=== PATIENT | female | born 1930 | race Caucasian/White ===

== ENCOUNTER → 2016-10-06 | Outpatient (REF) | payer MEDICARE, MEDICAID ==
[~2016-10-06] MED LIST: /ALEN70TA; /AMLO25TA PO; /MOM400 PO; /WARF25TA; /WARF25TA PO; ACET50TA PO; ALB2.5NEB INH; ALBU17IN INH; ALLO10TA PO; AMLO5TAB2 PO; ASPI1TAB PO; ATOR1TAB21 PO; BONI150T PO; CALC600T7 PO; CALCIUM + VIT D; CATA0.1T PO; CENTRUM SILVER; CENTTAB PO; CHLO125TA PO; CLAR10CA3 PO; CLAR5CHW; CLON-412 PO; COLA100C PO; COLA100C2; COLA50CA3 PO; COLC0.6T; COLCPOW6 PO; COZA100T2 PO; DEPA250T3; DEPA250T32 PO; DULC5TAB PO; FLOV110A INH; FLUT11IN INH; FLUTISP; FOLI1TAB; FOLI1TAB2 PO; FOLI1TAB86 PO; FOSA70TA PO; FURO40TA2 PO; GABA-279 PO; HYDR1TAB97 PO; HYDR200T2 PO; HYDR200T3 PO; HYDROXYCHLOROQUINE; IPRA2IN INH; KLOR CON PO; KLOR1TAB69 PO; LASI40TA PO; LEVO75TA2; LEVO75TA3 PO; LEVO75TA4 PO; LIPI20TA; LIPI20TA PO; LISI20TA5; LISI5TAB PO; LORA10TA2 PO; MECL-68 PO; METH2.5T; METH2.5T PO; METH2.5TA PO; MICR10CA PO; MILKSUS; MONT10TA2 PO; MULTIVIT; MULTTAB4 PO; MYLASSUD PO; NYAM10003 TOP; NYST10PW TOP; NYSTPOW TOP; OMEP20CA3 PO; OMEP20TA7; PERC5TAB6 PO; POTA10CA PO; PROAAER INH; RHEU2.5T PO; SERT-138 PO; SERT100T; SING5CHW PO; TRAM50TA2; TYLE325T5 PO; ULTR50TA PO; VITAD1000T PO; VITAMIN D50000 UNT; VOLT1GEL24 TD; WARF-18 PO; ZOLO100T PO
[2016-10-06 12:16] LABS: INR 1.13
[2016-10-06 13:19] LABS: ALBUMIN 3.6 GM/DL (3.2-5.2); ALBUMIN/GLOBULIN RATIO 1.16 (1.00-1.93); BILIRUBIN,TOTAL 0.3 MG/DL (0.2-1.0); CALCIUM LEVEL 9.5 MG/DL (8.8-10.2); CREATININE FOR GFR 1.01 MG/DL (0.55-1.02); GLOMERULAR FILTRATION RATE 55.5 (>32); POTASSIUM SERUM 4.8 MEQ/L (3.5-5.1); TOTAL PROTEIN 6.7 GM/DL (6.4-8.2)
== END ==
LOC: M SFHCPLAZ 10:49
PROVIDERS: ATTEND Internal Medicine
DX: Z51.81 Encounter for therapeutic drug level monitoring (principal); E78.00 Pure hypercholesterolemia, unspecified; Z86.718 Personal history of other venous thrombosis and embolism; I48.2 Chronic atrial fibrillation

== ENCOUNTER → 2017-03-02 | Outpatient (REF) | payer MEDICARE, MEDICAID ==
[~2017-03-02] MED LIST changes: -COLA100C PO; +COLA100C3 PO; +HYDR-3713 PO; -HYDR1TAB97 PO
[2017-03-02 18:22] LABS: ALBUMIN 3.7 GM/DL (3.2-5.2); ALT/SGPT 20 U/L (12-78); AST/SGOT 23 U/L (15-37); GLOMERULAR FILTRATION RATE 50.1 (>32)
[2017-03-02 19:23] LABS: BASO % 0.4 % (0.0-1.0); EOS # 0.1 K/mm3 (0.0-0.50); EOS % 2.2 % (0.0-3.0); LYMPH # 1.2 K/mm3 (1.5-4.5); LYMPH % 23.4 % (24.0-44.0); MEAN CORPUSCULAR HGB CONC 31.6 g/dl (32.0-36.5); MEAN CORPUSCULAR VOLUME 94.9 fl (80.0-96.0); MONO # 0.2 K/mm3 (0.0-0.8); NEUTROPHILS # 3.7 K/mm3 (1.8-7.7); NEUTROPHILS % 68.9 % (36.0-66.0); RED CELL DISTRIBUTION WIDTH 16.2 % (11.5-14.5); WHITE BLOOD COUNT 5.3 K/mm3 (4.0-10.0)
== END ==
LOC: M LABDRAW1 17:08
PROVIDERS: ATTEND Physician Assistant
DX: M06.09 Rheumatoid arthritis without rheumatoid factor, multiple sites (principal); Z79.899 Other long term (current) drug therapy

== ENCOUNTER → 2017-03-18 | Outpatient (REF) | payer OTHER, MEDICAID ==
[2017-03-18 17:51] LABS: MEAN CORPUSCULAR HEMOGLOBIN 30.4 pg (27.0-33.0); MEAN CORPUSCULAR HGB CONC 31.8 g/dl (32.0-36.5); MEAN CORPUSCULAR VOLUME 95.3 fl (80.0-96.0); RED CELL DISTRIBUTION WIDTH 16.3 % (11.5-14.5); WHITE BLOOD COUNT 5.4 K/mm3 (4.0-10.0)
[2017-03-18 18:47] LABS: ALBUMIN 3.9 GM/DL (3.2-5.2); ALBUMIN/GLOBULIN RATIO 1.18 (1.00-1.93); BILIRUBIN,TOTAL 0.4 MG/DL (0.2-1.0); CALCIUM LEVEL 9.7 MG/DL (8.8-10.2); CREATININE FOR GFR 1.24 MG/DL (0.55-1.02); GLOMERULAR FILTRATION RATE 43.7 (>32); MAGNESIUM LEVEL 2.2 MG/DL (1.8-2.4); POTASSIUM SERUM 4.5 MEQ/L (3.5-5.1); TOTAL PROTEIN 7.2 GM/DL (6.4-8.2)
== END ==
LOC: M SFHCPLAZ 13:02
PROVIDERS: ATTEND Internal Medicine
DX: Z79.01 Long term (current) use of anticoagulants (principal); I10 Essential (primary) hypertension; E03.9 Hypothyroidism, unspecified

== ENCOUNTER 2017-06-08 16:42 | Observation (INO) | payer MEDICARE, MEDICAID ==
[~2017-06-08] VITALS: Ht 162.6 cm; Wt 90.2 kg
[~2017-06-08 16:42] MED LIST changes: -COLA100C3 PO; +COLA100C5 PO; -FOLI1TAB2 PO; +FOLI1TAB4 PO; +PERC5TAB12 PO; -PERC5TAB6 PO; +VOLT1GEL15 TD; -VOLT1GEL24 TD
[2017-06-08] MEDS ORDERED: ELIQ5TAB PO (17:31)
[2017-06-08] MEDS: NS 1,000 ML IV SCH (17:54)
[2017-06-08] MEDS ORDERED: GASTROGRAFIN SOLUTION 30ML PO ONE (18:15)
[2017-06-08 18:22] LABS: BASO % 0.5 % (0.0-1.0); EOS # 0.2 K/mm3 (0.0-0.50); EOS % 3.8 % (0.0-3.0); LARGE UNSTAINED CELL # 0.1 K/mm3 (0.0-0.4); LARGE UNSTAINED CELL % 1.5 % (0.0-4.0); LYMPH # 0.9 K/mm3 (1.5-4.5); LYMPH % 20.4 % (24.0-44.0); MEAN CORPUSCULAR HEMOGLOBIN 31.6 pg (27.0-33.0); MEAN CORPUSCULAR HGB CONC 33.1 g/dl (32.0-36.5); MEAN CORPUSCULAR VOLUME 95.2 fl (80.0-96.0); MONO # 0.2 K/mm3 (0.0-0.8); MONO % 4.3 % (0.0-5.0); NEUTROPHILS # 3.1 K/mm3 (1.8-7.7); NEUTROPHILS % 69.5 % (36.0-66.0); PLATELET COUNT, AUTOMATED 203 k/mm3 (150-450); RED CELL DISTRIBUTION WIDTH 15.7 % (11.5-14.5); WHITE BLOOD COUNT 4.5 K/mm3 (4.0-10.0)
[2017-06-08 18:28] LABS: INR 1.13
[2017-06-08 18:40] LABS: CALCIUM LEVEL 9.4 MG/DL (8.8-10.2); CREATININE FOR GFR 0.98 MG/DL (0.55-1.02); GLOMERULAR FILTRATION RATE 57.3 (>32); POTASSIUM SERUM 4.2 MEQ/L (3.5-5.1)
[2017-06-08] MEDS ORDERED: GASTROGRAFIN SOLUTION 30ML (Q9963) PO ONE (18:45)
[2017-06-08] MEDS ORDERED: ISOVUE-370 76% 100ML VIAL (Q9967) As Ordered ONE (19:39)
--- NOTE | 2017-06-08 20:50 | REPUSA ---
HISTORY: DIVERTICULITIS. TECHNIQUE: Axial CT imaging of the abdomen and pelvis with coronal and sagittal reformatted imaging, with oral and intravenous contrast enhancement. DLP= 940.8 mGy-cm. FINDINGS: Lung bases are clear. There is a huge hiatal hernia with most of the stomach herniated i nto the lower thorax. Coronary artery calcifications are seen in the LAD, circumflex, and RCA arteri es. Bone windows demonstrate diffuse degenerative changes in the lumbosacral spine with no bony frac ture or destructive bony lesions seen. Liver is of normal size with no pathologic mass seen. Spleen is borderline enlarged. No ascites or abnormal peritoneal fluid collection is seen. Patient is status post cholecystectomy. There is dilatation of the common bile duct which is most li ada physiological. There is pancreatic atrophy with no pancreatic mass or calcification seen. Bila teral adrenal glands are normal. Both kidneys function without evidence of obstruction. There are multiple benign cysts identified in the right kidney, the largest measuring 2.6 cm. , Ureters and urinary bladder are normal. Abdomin al aorta and IVC are normal and no retroperitoneal mass is seen. No pelvic mass lesions or abnormal peritoneal fluid collections are seen. No abdominal wall hernia s een. The bowel appears normal with no evidence of bowel wall mass lesion, obstruction, perforation, inflammatory reaction, or evidence of diverticulitis. Appendix is not visualized. IMPRESSION: 1. Huge hiatal hernia with large herniation of stomach into the lower thorax. The remai nder of the bowel is normal with no evidence of diverticulitis, bowel obstruction, or perforation. 2. Coronary artery calcifications noted in the LAD, circumflex, and RCA arteries. 3. Multiple benign cysts in the right kidney with no evidence of urinary tract calculus, obstruction , or solid mass lesions seen. 4. Borderline splenomegaly. 5. The remainder of the CT examination of the abdomen and pelvis is normal.
[2017-06-08 21:31] LABS: ALBUMIN 3.7 GM/DL (3.2-5.2); ALBUMIN/GLOBULIN RATIO 0.95 (1.00-1.93); BILIRUBIN,DIRECT 0.1 MG/DL (0.0-0.2); BILIRUBIN,TOTAL 0.3 MG/DL (0.2-1.0); TOTAL PROTEIN 7.6 GM/DL (6.4-8.2)
[2017-06-08] MEDS ORDERED: fentaNYL 100 MCG/2 ML INJECTION (J3010) IV ONE (22:30)
[2017-06-08] MEDS ORDERED: ASPI81CH PO (22:36)
[2017-06-08] MEDS ORDERED: GABA-282 PO (22:36)
[2017-06-08] MEDS ORDERED: TRAN1.5D2 TOP (22:57)
[2017-06-09] VITALS (13 sets, daily range): BP systolic 124–214; BP diastolic 60–93
[2017-06-09] MEDS ORDERED: MECLIZINE 25 MG TABLET PO PRN (01:30)
[2017-06-09] MEDS ORDERED: traMADol 50 MG TAB PO PRN (01:30)
[2017-06-09] MEDS ORDERED: ONDANSETRON 4MG/2ML VIAL (J2405) IV PRN (01:30)
[2017-06-09] MEDS ORDERED: ALBUTEROL 90 MCG/ACT 8GM HFA INHALER INH PRN (01:30)
[2017-06-09] MEDS ORDERED: SCOPOLAMINE 1.5 MG TRANSDERMAL TOP PRN (01:30)
[2017-06-09] MEDS ORDERED: NYSTATIN 100,000 UNITS/GM TOPICAL PWD 15 GM TOP PRN (01:30)
[2017-06-09] MEDS ORDERED: ACETAMINOPHEN TAB 650MG DOSE (2X325MG) PO PRN (01:30)
[2017-06-09] MEDS ORDERED: FLUTICASONE HFA 110 MCG 12 GM INHALER (FLOVENT) INH PRN (01:30)
[2017-06-09] MEDS ORDERED: traMADol 50 MG TAB PO ONE (01:45)
--- NOTE | 2017-06-09 02:01 | HPEPDOC ---
Medical History and Physical Date of Admission Jun 08, 2017 at 16:43 History and Physical PRIMARY CARE PROVIDER: Dr. Charli Steiner ATTENDING: Dr. Trang Mcgowan CHIEF COMPLAINT: Abd pain, black stools. HISTORY OF PRESENT ILLNESS: This 87-year-old female past medical history of CVA 4, chronic atrial fibrillation on [place], SARA compliant with CPAP at home, hypertension, rheumatoid arthritis, osteoporosis, GERD, asthma, hemorrhoids, diverticulosis and diverticulitis who presents complaining of left lower quadrant pain as well as melanotic stools. Patient states the melanotic stools has been present over the past 2 and half months. Patient states that her stools were initially bright red before becoming melanotic. Patient also reports left lower quadrant pain which occasionally improves with bowel movements, and with pain medications. Patient had an abdominal CAT scan in the ED which did not note any significant pathology attributing to her pain. Upon further questioning, the patient's pain appears to be radiating from her spine. Patient also has left hip pain with radiation to the inguinal region. Patient denies any recent falls. PAST MEDICAL HISTORY: As per HPI PAST SURGICAL HISTORY: Cholecystectomy, breast biopsy, hiatal hernia repair, appendectomy, tonsillectomy, bilateral cataract, hysterectomy, right knee replacement, tonsillectomy SOCIAL HISTORY: Denies tobacco, alcohol, illicit drug use. Lives alone. Walks with walker. FAMILY HISTORY: Noncontributory ALLERGIES: Please see below. REVIEW OF SYSTEMS: HEENT: Denies sore throat/headache CARDIOVASCULAR: Denies chest pain/palpitations RESPIRATORY: Denies shortness of breath/cough GASTROINTESTINAL: denies nausea/vomiting GENITOURINARY: Denies dysuria/urinary urgency. MUSCULOSKELETAL: Denies myalgias/arthralgias NEUROLOGICAL: Baseline right-sided hemiparesis status post CVA. HOME MEDICATIONS: Please see below. PHYSICAL EXAMINATION: Vitals: (see below) General: No acute distress, laying comfortably in bed. HEENT: Moist mucous membranes. Neck: No JVD or lymphadenopathy Cardiac: RRR, systolic murmur Pulm: Diminished breath sounds at the bases bilaterally. B/l. No wheezing, rhonchi Abd: ND + BS. Left lower > upper quadrant tenderness to palpation. No rebound guarding or rigidity. Patient appears to also have pain at the lumbar region of her spine on palpation. Ext: No edema or cyanosis. Distal pulses intact. Pain of left hip with internal rotation. Neuro: Strength 5/5 left upper and lower extremity. 3-4 out of 5 strength of the right upper and lower extremity; this is the patient's baseline. LABORATORY DATA: See below. IMAGING: CT abdomen and pelvis on 06/08/17 IMPRESSION: 1. Huge hiatal hernia with large herniation of stomach into the lower thorax. The remainder of the bowel is normal with no evidence of diverticulitis, bowel obstruction, or perforation. 2. Coronary artery calcifications noted in the LAD, circumflex, and RCA arteries. 3. Multiple benign cysts in the right kidney with no evidence of urinary tract calculus, obstruction, or solid mass lesions seen. 4. Borderline splenomegaly. 5. The remainder of the CT examination of the abdomen and pelvis is normal. MICROBIOLOGY: Please see below. ASSESSMENT/PLAN: 1. Left lower quadrant pain likely radiation from the spine, as well as constipation. We will obtain CT of the thoracic and lumbar spine. Patient does have a history of osteoporosis/rheumatoid arthritis. Tramadol for pain. Bowel regimen. Physical therapy. 2. Melanotic stools- patient states this is been going on for the past 2 and half months, and just recently told her primary care physician about it. Her hemoglobin is stable. She is on Eliquis for atrial fibrillation. Given that there is no drop in the hemoglobin, we will continue Eliquis and hold aspirin for now. Trend CBC. Question of EGD inpatient versus outpatient based on clinical course. 3. History of CVA 4 with residual right-sided hemiparesis. Walks with a walker. 4. Atrial fibrillation on Eliquis 5. History of rheumatoid arthritis on methotrexate and hydroxychloroquine 6. Osteoporosis- we'll need outpatient follow-up 7. SARA states she uses her CPAP at home. 8. History of hemorrhoids and diverticulosis. Last colonoscopy 2002. DVT prophylaxis- on Eliquis Patient will be followed by Dr. Trang Mcgowan starting 06/09/17 a 7 AM. Vital Signs Vital Signs Date Time Temp Pulse Resp B/P (MAP) Pulse Ox O2 Delivery O2 Flow Rate FiO2 06/09/17 00:42 58 93 06/08/17 23:53 165/71 (102) 06/08/17 22:41 18 06/08/17 16:43 98.1 Room Air Laboratory Data Labs 24H Laboratory Tests 2 06/08/17 18:06: White Blood Count 4.5, Red Blood Count 3.70L, Hemoglobin 11.7L, Hematocrit 35.3L , Mean Corpuscular Volume 95.2, Mean Corpuscular Hemoglobin 31.6, Mean Corpuscular Hemoglobin Concent 33.1, Red Cell Distribution Width 15.7H, Platelet Count 203, Neutrophils (%) (Auto) 69.5H, Lymphocytes (%) (Auto) 20.4L, Monocytes (%) (Auto) 4.3, Eosinophils (%) (Auto) 3.8H, Basophils (%) (Auto) 0.5 , Neutrophils # (Auto) 3.1, Lymphocytes # (Auto) 0.9L, Monocytes # (Auto) 0.2, Eosinophils # (Auto) 0.2, Basophils # (Auto) 0.0, Large Unclassified Cells % 1.5 , Large Unclassified Cells # 0.1, Prothrombin Time 14.7H, Prothromb Time International Ratio 1.13, Activated Partial Thromboplast Time 38.4H, Anion Gap 9 , Glomerular Filtration Rate 57.3, Lactic Acid Level 1.4, Blood Urea Nitrogen 28H, Creatinine 0.98, Sodium Level 143, Potassium Level 4.2, Chloride Level 110H , Carbon Dioxide Level 24, Calcium Level 9.4, Aspartate Amino Transf (AST/SGOT) 21, Alanine Aminotransferase (ALT/SGPT) 23, Alkaline Phosphatase 95, Total Bilirubin 0.3, Direct Bilirubin 0.1, Total Protein 7.6, Albumin 3.7, Albumin/ Globulin Ratio 0.95L CBC/BMP Laboratory Tests 06/08/17 18:06 Red Blood Count 3.70 L, Mean Corpuscular Volume 95.2, Mean Corpuscular Hemoglobin 31.6, Mean Corpuscular Hemoglobin Concent 33.1, Red Cell Distribution Width 15.7 H, Neutrophils (%) (Auto) 69.5 H, Lymphocytes (%) (Auto ) 20.4 L, Monocytes (%) (Auto) 4.3, Eosinophils (%) (Auto) 3.8 H, Basophils (%) (Auto) 0.5, Neutrophils # (Auto) 3.1, Lymphocytes # (Auto) 0.9 L, Monocytes # ( Auto) 0.2, Eosinophils # (Auto) 0.2, Basophils # (Auto) 0.0, Calcium Level 9.4 Home Medications Scheduled (Aspirin) 81 Mg Chw, 81 MG PO DAILY Allopurinol (Allopurinol) 100 Mg Tab, 100 MG PO DAILY Amlodipine Besylate (Amlodipine Besylate) 5 Mg Tab, 10 MG PO DAILY Apixaban Base (Eliquis) 5 Mg Tab, 5 MG PO BID Atorvastatin Calcium (Atorvastatin Calcium) 20 Mg Tab, 20 MG PO DAILY Docusate Sodium (Colace) 100 Mg Cap, 100 MG PO BID Folic Acid (Folic Acid) 1 Mg Tab, 1 MG PO DAILY Furosemide (Furosemide) 40 Mg Tab, 20 MG PO DAILY Gabapentin (Gabapentin) 300 Mg Cap, 300 MG PO BID Hydroxychloroquine Sulfate (Hydroxychloroquine Sulfat) 200 Mg Tab, 200 MG PO ASDIRECTED TAKES TUESDAY THROUGH TUESDAY Ibandronate Sodium (Boniva) 150 Mg Tab, 150 MG PO ASDIRECTED TAKES ONCE A MONTH ON THE OF THE MONTH. HAS NOT TAKEN IT FOR . Levothyroxine Sodium (Synthroid) 75 Mcg Tab, 75 MCG PO DAILY Loratadine (Loratadine) 10 Mg Tab, 10 MG PO DAILY Losartan Potassium (Cozaar) 100 Mg Tab, 100 MG PO DAILY Methotrexate (Methotrexate) 2.5 Mg Tab, 12.5 MG PO ASDIRECTED TAKES ON TUESDAY MORNINGS Montelukast Sodium (Montelukast Sodium) 10 Mg Tab, 10 MG PO QHS Omeprazole (Omeprazole) 20 Mg Cap, 20 MG PO DAILY Potassium Chloride (Klor-Con M10) 10 Meq Tabcr, 10 MEQ PO BID Sertraline HCl (Sertraline HCl) 100 Mg Tab, 100 MG PO QHS Scheduled PRN Albuterol Sulfate (Ventolin Hfa) 200 Puff/8 Gm Aers, 2 PUFF INH Q4H PRN for SHORTNESS OF BREATH Fluticasone Propionate (Flovent Hfa 110 MCG) 120 Puff/12 Gm Aero, 2 PUFF INH BID PRN for SHORTNESS OF BREATH Meclizine HCl (Meclizine HCl) 25 Mg Tab, 25 MG PO TID PRN for DIZZINESS Nystatin (Nystop Powder) 1 Dose/15 Gm Powd, 1 DOSE TOP BID PRN for RASH USES UNDER BREASTS NEEDED Scopolamine (Transderm-Scop) 1.5 Mg Dis, 1.5 MG TOP Q72H PRN for DIZZINESS Allergies Coded Allergies: Codeine (Verified Allergy, Intermediate, HIVES, 10/11/13) Penicillins (Verified Allergy, Intermediate, HIVES, 10/11/13) Sulfa Drugs (Verified Allergy, Intermediate, HIVES, 10/11/13) Hexachlorophene (Verified Allergy, Unknown, 01/01/13) Morphine (Verified Adverse Reaction, Intermediate, HALLUCINATIONS, 10/11/13) MIGDALIA MÉNDEZ MD Jun 09, 2017 02:01
[2017-06-09 02:20] LABS: MEAN CORPUSCULAR HEMOGLOBIN 30.6 pg (27.0-33.0); MEAN CORPUSCULAR HGB CONC 31.9 g/dl (32.0-36.5); RED CELL DISTRIBUTION WIDTH 16.2 % (11.5-14.5); WHITE BLOOD COUNT 4.9 K/mm3 (4.0-10.0)
--- NOTE | 2017-06-09 02:20 | REPUSA ---
CLINICAL HISTORY: Back pain. TECHNIQUE: Multiple axial images were obtained through the L1-L2, L2-L3, L3-L4, L4-L5 and L5-S1 inter spaces. Images were also reconstructed in coronal and sagittal planes. COMMENTS: There is no fracture visualized. The paraspinal soft tissues are unremarkable. There are no lytic or blastic lesions. Straightening of lumbar lordosis is seen, suggesting muscular spasm. There is evidence of multilevel disk disease, demonstrated by osteophytosis ad endplate sclerosis. Evaluation of individual levels reveals the following: At L4-L5 and L5-S1, broad-based disk protrusion in conjunction with hypertrophic facet disease result s in moderate bilateral foraminal narrowing.Canal is mildly stenotic. At L3-L4, broad-based disk bulge, results in mild bilateral foraminal narrowing. Canal is patent. L1-L2 and L2-L3, broad-based disk bulge, results in mild bilateral foraminal narrowing. Canal is chris nt. IMPRESSION: Spondylosis. Multilevel degenerative disc disease. Thank you for your kind referral of this patient.
--- NOTE | 2017-06-09 02:30 | REPUSA ---
CLINICAL HISTORY: Pain. TECHNIQUE: Multiple axial CT images were obtained through the thoracic spine without IV contrast mate rial. MPR coronal and sagittal sequences were obtained. COMMENTS: Moderate osteopenia of the visualized bones. Mild chronic compression deformities of the midthoracic vertebral bodies. Associated secondary increase in the dorsal kyphosis. There is no fracture visualized. The paraspinal soft tissues are unremarkable. There are no lytic or blastic lesions. There are diffuse spondylotic changes. Findings are demonstrated by disc space narrowing, osteophyte formation and degenerative endplate changes. Facet joint arthropathy. No fracture or dislocation is s een. No aggressive bone lesion is noted. IMPRESSION: Spondylosis. No acute fracture. Thank you for your kind referral of this patient.
--- NOTE | 2017-06-09 02:30 | REPUSA ---
CLINICAL HISTORY: Pain. TECHNIQUE: Multiple axial CT images were obtained without IV contrast material. MPR coronal and sagit syeda sequences are obtained. COMMENTS: There are moderate changes of degenerative joint disease. Findings are demonstrated by joint space na rrowing, osteophyte formation and subchondral sclerosis. No fracture or dislocation is seen. No lytic or blastic lesion is appreciated. There is no evidence of fracture or dislocation. There are no lytic or blastic lesions. No soft tissu e masses or fluid collections are present. IMPRESSION: Osteopenia. Degenerative joint disease. Thank you for your kind referral of this patient.
[2017-06-09] MEDS ORDERED: amLODIPine 5 MG TAB PO ONE (03:30)
[2017-06-09] MEDS ORDERED: LOSARTAN 50 MG TAB PO ONE (03:30)
[2017-06-09] MEDS: NS 1,000 ML IV SCH (03:57)
[2017-06-09] MEDS: LEVOTHYROXINE 75MCG TABLET (0.075MG) PO SCH (05:03)
[2017-06-09] MEDS: ALLOPURINOL 100 MG TAB PO SCH (08:50)
[2017-06-09] MEDS: LORATADINE 10 MG TAB PO SCH (08:50)
[2017-06-09] MEDS: GABAPENTIN 300 MG CAP PO SCH ×2 (08:50→20:35)
[2017-06-09] MEDS: PANTOPRAZOLE 40MG INJ (PROTONIX) (C9113) IV SCH ×2 (08:50→20:34)
[2017-06-09] MEDS: APIXABAN 5 MG TAB (ELIQUIS) PO SCH ×2 (08:51→20:35)
[2017-06-09] MEDS: ATORVASTATIN 20 MG TAB PO SCH (08:51)
[2017-06-09] MEDS: HYDROXYCHLOROQUINE 200 MG TAB PO SCH (08:51)
[2017-06-09] MEDS: FOLIC ACID 1 MG TAB PO SCH (08:51)
[2017-06-09] MEDS: amLODIPine 5 MG TAB PO SCH (08:51)
[2017-06-09] MEDS: FUROSEMIDE 20 MG TAB PO SCH (08:51)
[2017-06-09] MEDS: POTASSIUM CHLORIDE 10 MEQ SR TABLET PO SCH ×2 (08:51→20:34)
[2017-06-09] MEDS: LOSARTAN 50 MG TAB PO SCH (08:52)
[2017-06-09] MEDS: DOCUSATE SODIUM 100 MG CAP PO SCH ×2 (08:52→20:35)
[2017-06-09] MEDS ORDERED: OMEPRAZOLE 20 MG CAP PO SCH (09:00)
[2017-06-09 13:32] LABS: MEAN CORPUSCULAR HEMOGLOBIN 31.1 pg (27.0-33.0); MEAN CORPUSCULAR HGB CONC 32.1 g/dl (32.0-36.5); RED CELL DISTRIBUTION WIDTH 16.2 % (11.5-14.5); WHITE BLOOD COUNT 5.3 K/mm3 (4.0-10.0)
[2017-06-09] MEDS ORDERED: MONTELUKAST 10 MG TAB PO SCH (21:00)
[2017-06-09] MEDS ORDERED: SERTRALINE 100 MG TAB PO SCH (21:00)
[2017-06-10 06:00] VITALS: BP 127/60
[2017-06-10] MEDS: LEVOTHYROXINE 75MCG TABLET (0.075MG) PO SCH (06:06)
[2017-06-10 06:29] LABS: CALCIUM LEVEL 8.6 MG/DL (8.8-10.2); CREATININE FOR GFR 1.07 MG/DL (0.55-1.02); GLOMERULAR FILTRATION RATE 51.8 (>32); POTASSIUM SERUM 4.9 MEQ/L (3.5-5.1)
[2017-06-10 06:31] LABS: MEAN CORPUSCULAR HEMOGLOBIN 31.5 pg (27.0-33.0); MEAN CORPUSCULAR HGB CONC 32.1 g/dl (32.0-36.5); MEAN CORPUSCULAR VOLUME 98.1 fl (80.0-96.0); RED CELL DISTRIBUTION WIDTH 16.2 % (11.5-14.5)
[2017-06-10 09:00] VITALS: BP 143/65
[2017-06-10] MEDS: FUROSEMIDE 20 MG TAB PO SCH (09:00)
[2017-06-10] MEDS: DOCUSATE SODIUM 100 MG CAP PO SCH (09:00)
[2017-06-10] MEDS: APIXABAN 5 MG TAB (ELIQUIS) PO SCH (09:00)
[2017-06-10] MEDS: amLODIPine 5 MG TAB PO SCH (09:00)
[2017-06-10] MEDS: PANTOPRAZOLE 40MG INJ (PROTONIX) (C9113) IV SCH (09:00)
[2017-06-10] MEDS: POTASSIUM CHLORIDE 10 MEQ SR TABLET PO SCH (09:00)
[2017-06-10] MEDS: HYDROXYCHLOROQUINE 200 MG TAB PO SCH (09:00)
[2017-06-10] MEDS: GABAPENTIN 300 MG CAP PO SCH (09:00)
[2017-06-10] MEDS: ALLOPURINOL 100 MG TAB PO SCH (09:00)
[2017-06-10] MEDS: LOSARTAN 50 MG TAB PO SCH (09:00)
[2017-06-10] MEDS: FOLIC ACID 1 MG TAB PO SCH (09:00)
[2017-06-10] MEDS: LORATADINE 10 MG TAB PO SCH (09:00)
[2017-06-10] MEDS: ATORVASTATIN 20 MG TAB PO SCH (09:00)
[2017-06-10 10:00] VITALS: BP 158/72
--- NOTE | 2017-06-10 17:00 | DSES ---
DATE OF ADMISSION: 06/08/2017 DATE OF DISCHARGE: 06/10/2017 DISCHARGE DIAGNOSIS: Tarry stools. SECONDARY DIAGNOSES: 1. Left quadrant abdominal pain. 2. History of cerebrovascular accident (CVA). 3. Atrial fibrillation. 4. Rheumatoid arthritis. 5. Osteoporosis. 6. Obstructive sleep apnea. 7. Hemorrhoids. 8. Diverticulosis. HOSPITAL COURSE: The patient is an 87-year-old female who presented to the hospital with dark, tarry stools for two days. The patient was admitted to the progressive care unit under medical service. Was monitored very closely. Her hemoglobin and hematocrit (H and H) did not appear to have any significant deviations. They remained stable, and occult stool for blood was negative. She was monitored 24 hours without any significant change in her clinical status. Her left lower quadrant pain resolved. It was felt to be related to diverticulosis. Melanotic stools resolved and she resumed having normal bowel movements. SUBJECTIVE: The patient tells me that she is feeling well and has no complaints and wants to go home. She states she feels back to normal. OBJECTIVE: VITAL SIGNS: Temperature 96.9, pulse 53, respiratory rate 18, blood pressure 127/60, oxygen saturation 92% on room air. GENERAL: She is an obese, elderly female sitting in a recliner in no distress. HEENT: Cranial nerves II through XII grossly intact. She has moist mucous membranes. No elevation of central venous pressure (CVP). CARDIOVASCULAR: S1, S2. RESPIRATORY: Clear. ABDOMEN: Benign. There is no tenderness in the left lower quadrant. EXTREMITIES: No clubbing, cyanosis or edema. LABORATORY DATA: WBC 4.0, hemoglobin 10.1, hematocrit 31.5, platelet count 160. Chemistry panel: Sodium 144, potassium 4.9, chloride 112, bicarbonate 23, BUN 27, creatinine 1.0. She had an INR of 1.1. Occult stool for blood was negative. IMAGING: The patient had a CT scan of the abdomen and pelvis which revealed a huge hiatal hernia, coronary artery calcifications, multiple benign cysts of the right kidney, borderline splenomegaly. The patient also had a lumbar spine CT that revealed spondylosis and multilevel degenerative disc disease. She also had CT of the extremities that revealed osteopenia and degenerative joint disease of the left hip, and a thoracic spine CT that revealed spondylosis and no acute fracture. ASSESSMENT AND PLAN: This is an 87-year-old female who presented with dark tarry stools. 1. Dark tarry stools: There was certainly concern for upper gastrointestinal (GI) bleed at the time of her presentation, given the fact she was on Eliquis and has a history of rheumatoid arthritis on methotrexate and hydroxychloroquine and history of being on non-steroidal anti-inflammatory drugs (NSAIDs) in the past as well. However, she was admitted, monitored without any change, and negative occult stool for blood, and her symptoms did resolve. I would recommend that she followup with her primary care provider and have repeat hemoglobin and hematocrit (H and H) testing in the coming weeks. 2. Left lower quadrant pain: Possibly due to constipation, possibly due to diverticulosis. Her symptoms did spontaneously resolve and she was up ambulating independently at her baseline. 3. History of cerebrovascular accident (CVA) times four with residual right- sided hemiparesis: She walks with a walker at her baseline. She is anticoagulated with Eliquis. She is on an antihypertensive and statin for secondary prevention. 4. Atrial fibrillation: She is anticoagulated with Eliquis. This was not held during her hospitalization. She did not require any rate-controlling agents. 5. Rheumatoid arthritis: She was continued on her methotrexate and hydroxychloroquine. 6. Chronic pain: The patient is continued on gabapentin. 7. Osteopenia: Followup with her primary care provider. 8. Gout: Continue with allopurinol. 9. Hypertension: She is on amlodipine and losartan. 10. Chronic vertigo: Continue with meclizine 11. Gastroesophageal reflux disease: Continue with omeprazole. 12. Mood disorder: Continue with sertraline. 13. Obstructive sleep apnea (SARA): She uses continuous positive airway pressure (CPAP) at home. 14. Deep venous thrombosis prophylaxis. She was continued on her Eliquis while here. DISPOSITION: The patient is being discharged home. The patient has been seen and evaluated by physical therapy and occupational therapy, and cleared by both services. She is to followup with her primary care provider (PCP) in seven days. Her activity and diet are as prior to admission. She is to consider rechecking her hemoglobin and hematocrit with her PCP and return to the emergency room (ER) if her symptoms worsen. MEDICATIONS AT DISCHARGE: - Ventolin HFA two puffs every four hours as needed for shortness of breath - allopurinol 100 mg daily - amlodipine 10 mg daily - Eliquis 5 mg twice a day - aspirin 81 mg daily - atorvastatin 20 mg daily - Colace 100 mg twice a day - Flovent HVA two puffs inhaled twice a day for shortness of breath - folic acid 1 mg daily - Lasix 20 mg daily - gabapentin 300 mg twice a day - hydroxychloroquine 200 mg as directed Tuesday through Tuesday - ibandronate (Boniva) 150 mg by mouth as directed once a month on the third of the month - levothyroxine 75 mcg daily - loratadine 10 mg daily - losartan 100 mg daily - meclizine 25 mg three times a day as needed for dizziness - methotrexate 12.5 mg as directed on Tuesday mornings - Singulair 10 mg at bedtime - Nystatin topically twice daily as needed under breasts - omeprazole 20 mg daily - potassium chloride 10 mEq twice a day - scopolamine 0.5 mg topically every 72 hours as needed for dizziness - sertraline 100 mg at bedtime Greater than 30 minutes were spent organizing disposition. MTDD
[2017-06-11] MEDS ORDERED: METHOTREXATE 2.5 MG TAB (J8610 PER 2.5MG) PO SCH (09:00)
== END 2017-06-10 13:33 | disposition home or self-care (01) ==
LOC: M ED 16:42 → M ED INP 16:43 → M MSPAV 06-09 14:32
PROVIDERS: ADMIT Internal Medicine; ATTEND Internal Medicine
DX: K92.1 Melena (principal); R10.32 Left lower quadrant pain; Z86.73 Personal history of transient ischemic attack (TIA), and cerebral infarction without residual deficits; I48.91 Unspecified atrial fibrillation; Z12.11 Encounter for screening for malignant neoplasm of colon; M06.9 Rheumatoid arthritis, unspecified; M81.0 Age-related osteoporosis without current pathological fracture; G47.33 Obstructive sleep apnea (adult) (pediatric); K57.30 Diverticulosis of large intestine without perforation or abscess without bleeding; Z79.02 Long term (current) use of antithrombotics/antiplatelets; G89.29 Other chronic pain; I10 Essential (primary) hypertension; M10.9 Gout, unspecified; K21.9 Gastro-esophageal reflux disease without esophagitis; R42 Dizziness and giddiness; Z79.82 Long term (current) use of aspirin; Z79.899 Other long term (current) drug therapy
CPT/HCPCS: 36415; 72128; 72131; 73700; 74177; 80048; 80076; 82270; 83605; 83735; 85018; 85025; 85027; 85610; 85730; 86850; 86900; 86901; 93041; 96374; 96375; 96376; 97161; 97165; 99285; C9113; G0378; J2405; J3010; Q9963; Q9967

== ENCOUNTER → 2017-06-14 | Outpatient (REF) | payer OTHER, MEDICAID ==
[~2017-06-14] MED LIST changes: +ASPI81CH PO; +ELIQ5TAB PO; +GABA-282 PO; +TRAN1.5D2 TOP
[2017-06-14 19:44] LABS: MEAN CORPUSCULAR HEMOGLOBIN 31.4 pg (27.0-33.0); MEAN CORPUSCULAR HGB CONC 31.9 g/dl (32.0-36.5); MEAN CORPUSCULAR VOLUME 98.6 fl (80.0-96.0); RED CELL DISTRIBUTION WIDTH 16.2 % (11.5-14.5); WHITE BLOOD COUNT 5.4 K/mm3 (4.0-10.0)
== END ==
LOC: M SFHCPLAZ 14:21
PROVIDERS: ATTEND Physician Assistant
DX: R19.5 Other fecal abnormalities (principal)

== ENCOUNTER → 2017-09-20 | Outpatient (REF) | payer MEDICAID ==
[2017-09-20 16:34] LABS: ALBUMIN 3.7 GM/DL (3.2-5.2)
[2017-09-20 18:29] LABS: BASO % 0.6 % (0.0-1.0); EOS # 0.1 10^3/uL (0.0-0.50); EOS % 2.5 % (0.0-3.0); IMMATURE GRANULOCYTE % 0.4 % (0-0); LYMPH # 0.8 10^3/uL (1.5-4.5); LYMPH % 15.8 % (24.0-44.0); MEAN CORPUSCULAR HEMOGLOBIN 30.2 pg (27.0-33.0); MEAN CORPUSCULAR HGB CONC 31.6 g/dl (32.0-36.5); MEAN CORPUSCULAR VOLUME 95.5 fl (80.0-96.0); MONO # 0.5 10^3/uL (0.0-0.8); MONO % 10.3 % (0.0-5.0); NEUTROPHILS # 3.7 10^3/uL (1.8-7.7); NEUTROPHILS % 70.4 % (36.0-66.0); PLATELET COUNT, AUTOMATED 261 10^3/uL (150-450); RED CELL DISTRIBUTION WIDTH 15.4 % (11.5-14.5); WHITE BLOOD COUNT 5.2 10^3/uL (4.0-10.0)
[2017-09-20 18:55] LABS: ERYTHROCYTE SEDIMENTATION RATE 65 mm/hr (0-42)
== END ==
LOC: M LABDRAW1 15:51
PROVIDERS: ATTEND Physician Assistant
DX: Z79.899 Other long term (current) drug therapy (principal); M06.09 Rheumatoid arthritis without rheumatoid factor, multiple sites

== ENCOUNTER → 2017-10-17 | Outpatient (REF) | payer MEDICARE, MEDICAID ==
[2017-10-17 15:50] LABS: APPEARANCE, URINE CLEAR (CLEAR); BACTERIA, URINE AUTO NEGATIVE (NEGATIVE); BILIRUBIN, URINE AUTO NEGATIVE (NEGATIVE); BLOOD, URINE BLOOD NEGATIVE (NEGATIVE); COLOR, URINE STRAW (YELLOW); GLUCOSE, URINE (UA) AUTO NEGATIVE (NEGATIVE); KETONE, URINE AUTO NEGATIVE (NEGATIVE); LEUKOCYTE ESTERASE, URINE AUTO NEGATIVE (NEGATIVE); NITRITE, URINE AUTO NEGATIVE (NEGATIVE); PROTEIN, URINE AUTO NEGATIVE (NEGATIVE); RBC, URINE AUTO 2 /HPF (0-3); SPECIFIC GRAVITY URINE AUTO 1.004 (1.002-1.035); SQUAMOUS EPITHELIAL CELL UR AU 0 /HPF (0-6); UROBILINOGEN, URINE AUTO 0.2 mg/dL (0.0-2.0); WBC, URINE AUTO 0 /HPF (0-3)
[2017-10-17 15:56] LABS: ALBUMIN/GLOBULIN RATIO 1.18 (1.00-1.93); ALKALINE PHOSPHATASE 111 U/L (45-117); ALT/SGPT 20 U/L (12-78); ANION GAP 9 MEQ/L (8-16); AST/SGOT 29 U/L (7-37); BILIRUBIN,TOTAL 0.4 MG/DL (0.2-1.0); BLOOD UREA NITROGEN 23 MG/DL (7-18); CALCIUM LEVEL 9.4 MG/DL (8.8-10.2); CARBON DIOXIDE LEVEL 24 MEQ/L (21-32); CHLORIDE LEVEL 105 MEQ/L (98-107); CHOLESTEROL LEVEL 144 MG/DL (<200); CHOLESTEROL RISK RATIO 1.655 (<5); CREATININE FOR GFR 1.01 MG/DL (0.55-1.02); GLOMERULAR FILTRATION RATE 55.3 (>32); GLUCOSE, FASTING 95 MG/DL (83-110); HDL CHOLESTEROL 87 MG/DL (>40); LDL CHOLESTEROL 39.4 MG/DL (<100); NON-HDL-C 57 MG/DL; POTASSIUM SERUM 4.7 MEQ/L (3.5-5.1); SODIUM LEVEL 138 MEQ/L (136-145); TOTAL PROTEIN 7.4 GM/DL (6.4-8.2); TRIGLYCERIDES LEVEL 88 MG/DL (<150); URIC ACID 5.3 MG/DL (2.6-6.0)
[2017-10-17 16:02] LABS: PTH INTACT 190.2 PG/ML (14.0-72.0)
== END ==
LOC: M SFHCPLAZ 14:16
DX: H53.19 Other subjective visual disturbances (principal); I12.9 Hypertensive chronic kidney disease with stage 1 through stage 4 chronic kidney disease, or unspecified chronic kidney disease; E78.00 Pure hypercholesterolemia, unspecified; N18.3 Chronic kidney disease, stage 3 (moderate); M10.9 Gout, unspecified; R30.0 Dysuria
CPT/HCPCS: 83735

== ENCOUNTER 2017-11-09 11:50 | Inpatient (IN) | payer MEDICARE, MEDICAID ==
[2017-11-09] MEDS: NS 1,000 ML IV ×4 (12:50→21:44)
[2017-11-09 13:05] LABS: BASO % 0.5 % (0.0-1.0); EOS # 0.1 10^3/uL (0.0-0.50); HEMATOCRIT 36.8 % (36.0-47.0); HEMOGLOBIN 11.7 g/dl (12.0-16.0); IMMATURE GRANULOCYTE % 0.3 % (0-0); LYMPH # 0.7 10^3/uL (1.5-4.5); LYMPH % 10.7 % (24.0-44.0); MEAN CORPUSCULAR HEMOGLOBIN 29.7 pg (27.0-33.0); MEAN CORPUSCULAR HGB CONC 31.8 g/dl (32.0-36.5); MEAN CORPUSCULAR VOLUME 93.4 fl (80.0-96.0); MONO # 0.3 10^3/uL (0.0-0.8); MONO % 4.7 % (0.0-5.0); NEUTROPHILS # 5.2 10^3/uL (1.8-7.7); NEUTROPHILS % 81.8 % (36.0-66.0); PLATELET COUNT, AUTOMATED 218 10^3/uL (150-450); RED BLOOD COUNT 3.94 10^6/uL (4.00-5.40); RED CELL DISTRIBUTION WIDTH 15.9 % (11.5-14.5); WHITE BLOOD COUNT 6.4 10^3/uL (4.0-10.0)
[2017-11-09] MEDS: BACITRACIN OINT 30GM TOP ×2 (13:15)
[2017-11-09 13:17] LABS: INR 1.19; PROTHROMBIN TIME 15.3 SECONDS (12.4-14.5)
[2017-11-09 13:18] LABS: PARTIAL THROMBOPLASTIN TIME 40.3 SECONDS (26.8-37.9)
[2017-11-09] MEDS: HYDROmorphone HCL 1 MG/ML SYRINGE (J1170) IV ×2 (13:49)
[2017-11-09 13:53] LABS: ANION GAP 9 MEQ/L (8-16); BLOOD UREA NITROGEN 25 MG/DL (7-18); CALCIUM LEVEL 9.8 MG/DL (8.8-10.2); CARBON DIOXIDE LEVEL 26 MEQ/L (21-32); CHLORIDE LEVEL 107 MEQ/L (98-107); CK-MB VALUE MASS 3.5 NG/ML (0.0-3.6); CPK CREATINE PHOSPHOKINASE 168 U/L (26-192); CREATININE FOR GFR 0.97 MG/DL (0.55-1.30); GLUCOSE, FASTING 105 MG/DL (70-100); MB/CK RELATIVE INDEX 2.08 (< OR =4); POTASSIUM SERUM 3.9 MEQ/L (3.5-5.1); SODIUM LEVEL 142 MEQ/L (136-145); TROPONIN I < 0.02 NG/ML (< 0.10)
[2017-11-09] MEDS ORDERED: ONDANSETRON 4MG/2ML VIAL (J2405) As Ordered ×2 (14:20)
[2017-11-09] MEDS: ONDANSETRON 4MG/2ML VIAL (J2405) IV ×2 (14:26)
[2017-11-09] MEDS: CLINDAMYCIN 150 MG CAP PO ×4 (17:22→21:43)
[2017-11-09] MEDS: TETANUS/DIPHTHERIA TOX ADSORB ADULT 0.5ML SYR/VIAL (90714) IM ×2 (17:23)
[2017-11-09] MEDS ORDERED: MORPHINE 2 MG/ML 1ML SYRINGE (J2270) IV ×2 (17:30)
[2017-11-09] MEDS ORDERED: ACETAMINOPHEN TAB 650MG DOSE (2X325MG) PO ×2 (17:30)
[2017-11-09] MEDS ORDERED: ONDANSETRON 4MG/2ML VIAL (J2405) IV ×2 (17:30)
[2017-11-09] MEDS ORDERED: ALBUTEROL SULFATE 2.5 MG/0.5 ML INH NEB SOLN NEB ×2 (18:00)
[2017-11-09] MEDS: amLODIPine 10 MG TAB PO ×2 (18:11)
[2017-11-09] MEDS: LOSARTAN 50 MG TAB PO ×2 (18:12)
[2017-11-09] MEDS: PERCOCET 5MG/325MG TAB PO ×2 (19:10)
[2017-11-09 20:44] LABS: HEMATOCRIT 34.8 % (36.0-47.0); HEMOGLOBIN 11.1 g/dl (12.0-16.0); MEAN CORPUSCULAR HEMOGLOBIN 29.8 pg (27.0-33.0); MEAN CORPUSCULAR HGB CONC 31.9 g/dl (32.0-36.5); MEAN CORPUSCULAR VOLUME 93.3 fl (80.0-96.0); PLATELET COUNT, AUTOMATED 203 10^3/uL (150-450); RED BLOOD COUNT 3.73 10^6/uL (4.00-5.40); WHITE BLOOD COUNT 8.5 10^3/uL (4.0-10.0)
[2017-11-09] MEDS: GABAPENTIN 300 MG CAP PO ×2 (21:43)
[2017-11-09] MEDS: MONTELUKAST 10 MG TAB PO ×2 (21:43)
[2017-11-09] MEDS: ATORVASTATIN 20 MG TAB PO ×2 (21:43)
[2017-11-09] MEDS: DOCUSATE SODIUM 100 MG CAP PO ×2 (21:43)
[2017-11-09] MEDS: SERTRALINE 100 MG TAB PO ×2 (21:43)
[2017-11-09] MEDS: SENOKOT S TAB PO ×2 (21:44)
[2017-11-09] MEDS: POLYVINYL ALCOHOL OPHTH SOLN 15 ML(LIQUITEARS) OU ×2 (21:44)
[2017-11-10] MEDS: PERCOCET 5MG/325MG TAB PO ×6 (03:26→17:11)
[2017-11-10] MEDS: LEVOTHYROXINE 75MCG TABLET (0.075MG) PO ×2 (05:38)
[2017-11-10] MEDS ORDERED: OXYMETAZOLINE NASAL SPRAY (AFRIN) ×2 (06:45)
[2017-11-10 07:27] LABS: HEMATOCRIT 31.1 % (36.0-47.0); HEMOGLOBIN 9.7 g/dl (12.0-16.0); MEAN CORPUSCULAR HEMOGLOBIN 29.9 pg (27.0-33.0); MEAN CORPUSCULAR HGB CONC 31.2 g/dl (32.0-36.5); PLATELET COUNT, AUTOMATED 179 10^3/uL (150-450); RED BLOOD COUNT 3.24 10^6/uL (4.00-5.40); RED CELL DISTRIBUTION WIDTH 16.1 % (11.5-14.5)
[2017-11-10 07:47] LABS: ANION GAP 7 MEQ/L (8-16); BLOOD UREA NITROGEN 24 MG/DL (7-18); CALCIUM LEVEL 8.3 MG/DL (8.8-10.2); CARBON DIOXIDE LEVEL 24 MEQ/L (21-32); CHLORIDE LEVEL 113 MEQ/L (98-107); CREATININE FOR GFR 0.94 MG/DL (0.55-1.30); GLOMERULAR FILTRATION RATE > 60.0 (>32); GLUCOSE, FASTING 109 MG/DL (70-100); POTASSIUM SERUM 4.2 MEQ/L (3.5-5.1); SODIUM LEVEL 144 MEQ/L (136-145)
[2017-11-10] MEDS: FLUTICASONE HFA 110 MCG 12 GM INHALER (FLOVENT) INH ×4 (09:00→13:28)
[2017-11-10] MEDS: ALLOPURINOL 100 MG TAB PO ×2 (10:28)
[2017-11-10] MEDS: DOCUSATE SODIUM 100 MG CAP PO ×4 (10:28→20:03)
[2017-11-10] MEDS: HYDROXYCHLOROQUINE 200 MG TAB PO ×2 (10:28)
[2017-11-10] MEDS: SENOKOT S TAB PO ×4 (10:28→20:03)
[2017-11-10] MEDS: OMEPRAZOLE 20 MG CAP PO ×2 (10:28)
[2017-11-10] MEDS: FOLIC ACID 1 MG TAB PO ×2 (10:28)
[2017-11-10] MEDS: LORATADINE 10 MG TAB PO ×2 (10:28)
[2017-11-10] MEDS: GABAPENTIN 300 MG CAP PO ×4 (10:28→20:03)
[2017-11-10] MEDS: LOSARTAN 50 MG TAB PO ×2 (10:29)
[2017-11-10] MEDS: CLINDAMYCIN 150 MG CAP PO ×8 (10:29→20:03)
[2017-11-10] MEDS: NS 1,000 ML IV ×2 (10:30)
[2017-11-10] MEDS: amLODIPine 10 MG TAB PO ×2 (10:32)
[2017-11-10] MEDS: SERTRALINE 100 MG TAB PO ×2 (20:03)
[2017-11-10] MEDS: MONTELUKAST 10 MG TAB PO ×2 (20:03)
[2017-11-10] MEDS: ATORVASTATIN 20 MG TAB PO ×2 (20:03)
[2017-11-10] MEDS: POLYVINYL ALCOHOL OPHTH SOLN 15 ML(LIQUITEARS) OU ×2 (20:03)
[2017-11-10] MEDS: NYSTATIN 100,000 UNITS/GM TOPICAL PWD 15 GM TOP ×2 (22:54)
[2017-11-11] MEDS: PERCOCET 5MG/325MG TAB PO ×4 (04:09→13:45)
[2017-11-11] MEDS: LEVOTHYROXINE 75MCG TABLET (0.075MG) PO ×2 (05:33)
[2017-11-11 05:52] LABS: HEMATOCRIT 29.4 % (36.0-47.0); HEMOGLOBIN 9.3 g/dl (12.0-16.0); MEAN CORPUSCULAR HEMOGLOBIN 29.6 pg (27.0-33.0); MEAN CORPUSCULAR HGB CONC 31.6 g/dl (32.0-36.5); MEAN CORPUSCULAR VOLUME 93.6 fl (80.0-96.0); PLATELET COUNT, AUTOMATED 162 10^3/uL (150-450); RED BLOOD COUNT 3.14 10^6/uL (4.00-5.40); RED CELL DISTRIBUTION WIDTH 16.3 % (11.5-14.5); WHITE BLOOD COUNT 5.1 10^3/uL (4.0-10.0)
[2017-11-11 06:11] LABS: ANION GAP 7 MEQ/L (8-16); BLOOD UREA NITROGEN 22 MG/DL (7-18); CALCIUM LEVEL 8.5 MG/DL (8.8-10.2); CARBON DIOXIDE LEVEL 23 MEQ/L (21-32); CHLORIDE LEVEL 114 MEQ/L (98-107); CREATININE FOR GFR 0.92 MG/DL (0.55-1.30); GLOMERULAR FILTRATION RATE > 60.0 (>32); GLUCOSE, FASTING 115 MG/DL (70-100); POTASSIUM SERUM 4.2 MEQ/L (3.5-5.1); SODIUM LEVEL 144 MEQ/L (136-145)
[2017-11-11] MEDS ORDERED: MORPHINE 4 MG/ML 1ML VIAL/SYRINGE (J2270) IV (08:00)
[2017-11-11] MEDS ORDERED: MORPHINE 4 MG/ML 1ML VIAL (J2270) IV (08:00)
[2017-11-11] MEDS: FLUTICASONE HFA 110 MCG 12 GM INHALER (FLOVENT) INH ×2 (08:20)
[2017-11-11] MEDS: GABAPENTIN 300 MG CAP PO ×4 (09:07→21:05)
[2017-11-11] MEDS: SENOKOT S TAB PO ×4 (09:07→21:05)
[2017-11-11] MEDS: LORATADINE 10 MG TAB PO ×2 (09:07)
[2017-11-11] MEDS: HYDROXYCHLOROQUINE 200 MG TAB PO ×2 (09:07)
[2017-11-11] MEDS: DOCUSATE SODIUM 100 MG CAP PO ×4 (09:07→21:05)
[2017-11-11] MEDS: ALLOPURINOL 100 MG TAB PO ×2 (09:07)
[2017-11-11] MEDS: OMEPRAZOLE 20 MG CAP PO ×2 (09:07)
[2017-11-11] MEDS: FOLIC ACID 1 MG TAB PO ×2 (09:07)
[2017-11-11] MEDS: CLINDAMYCIN 150 MG CAP PO ×8 (09:07→21:05)
[2017-11-11] MEDS: LOSARTAN 50 MG TAB PO ×2 (09:13)
[2017-11-11] MEDS: amLODIPine 10 MG TAB PO ×2 (09:14)
[2017-11-11] MEDS: OXYMETAZOLINE NASAL SPRAY (AFRIN) ×2 (17:26)
[2017-11-11] MEDS: SODIUM CHLORIDE NASAL 0.65% SPRAY BTL (OCEAN) ×4 (17:26→21:06)
[2017-11-11] MEDS: ATORVASTATIN 20 MG TAB PO ×2 (21:05)
[2017-11-11] MEDS: POLYVINYL ALCOHOL OPHTH SOLN 15 ML(LIQUITEARS) OU ×2 (21:06)
[2017-11-11] MEDS: MONTELUKAST 10 MG TAB PO ×2 (21:06)
[2017-11-11] MEDS: SERTRALINE 100 MG TAB PO ×2 (21:06)
[2017-11-12] MEDS: diphenhydrAMINE CREAM 30GM TOP ×2 (03:27)
[2017-11-12 05:26] LABS: HEMATOCRIT 27.7 % (36.0-47.0); HEMOGLOBIN 8.8 g/dl (12.0-16.0); MEAN CORPUSCULAR HEMOGLOBIN 29.3 pg (27.0-33.0); MEAN CORPUSCULAR HGB CONC 31.8 g/dl (32.0-36.5); MEAN CORPUSCULAR VOLUME 92.3 fl (80.0-96.0); PLATELET COUNT, AUTOMATED 146 10^3/uL (150-450); RED CELL DISTRIBUTION WIDTH 16.5 % (11.5-14.5); WHITE BLOOD COUNT 4.5 10^3/uL (4.0-10.0)
[2017-11-12 05:47] LABS: ANION GAP 7 MEQ/L (8-16); BLOOD UREA NITROGEN 19 MG/DL (7-18); CARBON DIOXIDE LEVEL 24 MEQ/L (21-32); CHLORIDE LEVEL 112 MEQ/L (98-107); CREATININE FOR GFR 0.83 MG/DL (0.55-1.30); GLOMERULAR FILTRATION RATE > 60.0 (>32); GLUCOSE, FASTING 111 MG/DL (70-100); POTASSIUM SERUM 4.4 MEQ/L (3.5-5.1); SODIUM LEVEL 143 MEQ/L (136-145)
[2017-11-12] MEDS: LEVOTHYROXINE 75MCG TABLET (0.075MG) PO ×2 (05:58)
[2017-11-12] MEDS: OXYMETAZOLINE NASAL SPRAY (AFRIN) ×4 (05:58→17:43)
[2017-11-12] MEDS: DOCUSATE SODIUM 100 MG CAP PO ×4 (09:24→20:12)
[2017-11-12] MEDS: FOLIC ACID 1 MG TAB PO ×2 (09:24)
[2017-11-12] MEDS: CLINDAMYCIN 150 MG CAP PO ×2 (09:24)
[2017-11-12] MEDS: SENOKOT S TAB PO ×4 (09:24→20:12)
[2017-11-12] MEDS: METHOTREXATE 2.5 MG TAB (J8610 PER 2.5MG) PO ×2 (09:24)
[2017-11-12] MEDS: LORATADINE 10 MG TAB PO ×2 (09:24)
[2017-11-12] MEDS: ALLOPURINOL 100 MG TAB PO ×2 (09:24)
[2017-11-12] MEDS: GABAPENTIN 300 MG CAP PO ×4 (09:24→20:12)
[2017-11-12] MEDS: OMEPRAZOLE 20 MG CAP PO ×2 (09:24)
[2017-11-12] MEDS: LOSARTAN 50 MG TAB PO ×2 (09:25)
[2017-11-12] MEDS: amLODIPine 10 MG TAB PO ×2 (09:25)
[2017-11-12] MEDS: SODIUM CHLORIDE NASAL 0.65% SPRAY BTL (OCEAN) ×6 (09:26→20:13)
[2017-11-12] MEDS: FLUTICASONE HFA 110 MCG 12 GM INHALER (FLOVENT) INH ×2 (11:55)
[2017-11-12] MEDS: ASPIRIN 81 MG ENTERIC TAB PO ×2 (13:56)
[2017-11-12] MEDS: PERCOCET 5MG/325MG TAB PO ×2 (20:12)
[2017-11-12] MEDS: MONTELUKAST 10 MG TAB PO ×2 (20:12)
[2017-11-12] MEDS: SERTRALINE 100 MG TAB PO ×2 (20:13)
[2017-11-12] MEDS: MIRALAX *UNIT DOSE* 17GM PACKET PO ×2 (20:13)
[2017-11-12] MEDS: ATORVASTATIN 20 MG TAB PO ×2 (20:13)
[2017-11-12] MEDS: POLYVINYL ALCOHOL OPHTH SOLN 15 ML(LIQUITEARS) OU ×2 (21:00)
[2017-11-13] MEDS: LEVOTHYROXINE 75MCG TABLET (0.075MG) PO ×2 (05:30)
[2017-11-13] MEDS: OXYMETAZOLINE NASAL SPRAY (AFRIN) ×4 (05:31→17:01)
[2017-11-13 05:42] LABS: HEMATOCRIT 26.6 % (36.0-47.0); HEMOGLOBIN 8.5 g/dl (12.0-16.0); MEAN CORPUSCULAR HEMOGLOBIN 29.8 pg (27.0-33.0); MEAN CORPUSCULAR VOLUME 93.3 fl (80.0-96.0); PLATELET COUNT, AUTOMATED 161 10^3/uL (150-450); RED BLOOD COUNT 2.85 10^6/uL (4.00-5.40); WHITE BLOOD COUNT 4.7 10^3/uL (4.0-10.0)
[2017-11-13 05:58] LABS: ANION GAP 6 MEQ/L (8-16); BLOOD UREA NITROGEN 17 MG/DL (7-18); CALCIUM LEVEL 8.7 MG/DL (8.8-10.2); CARBON DIOXIDE LEVEL 26 MEQ/L (21-32); CHLORIDE LEVEL 113 MEQ/L (98-107); CREATININE FOR GFR 0.83 MG/DL (0.55-1.30); GLOMERULAR FILTRATION RATE > 60.0 (>32); GLUCOSE, FASTING 105 MG/DL (70-100); POTASSIUM SERUM 4.1 MEQ/L (3.5-5.1); SODIUM LEVEL 145 MEQ/L (136-145)
[2017-11-13] MEDS: ASPIRIN 81 MG ENTERIC TAB PO ×2 (08:59)
[2017-11-13] MEDS: ALLOPURINOL 100 MG TAB PO ×2 (08:59)
[2017-11-13] MEDS: SENOKOT S TAB PO ×4 (08:59→20:57)
[2017-11-13] MEDS: GABAPENTIN 300 MG CAP PO ×4 (08:59→20:57)
[2017-11-13] MEDS: DOCUSATE SODIUM 100 MG CAP PO ×4 (08:59→20:57)
[2017-11-13] MEDS: FOLIC ACID 1 MG TAB PO ×2 (08:59)
[2017-11-13] MEDS: amLODIPine 10 MG TAB PO ×2 (09:00)
[2017-11-13] MEDS: LORATADINE 10 MG TAB PO ×2 (09:00)
[2017-11-13] MEDS: OMEPRAZOLE 20 MG CAP PO ×2 (09:00)
[2017-11-13] MEDS: LOSARTAN 50 MG TAB PO ×2 (09:01)
[2017-11-13] MEDS: SODIUM CHLORIDE NASAL 0.65% SPRAY BTL (OCEAN) ×6 (09:01→20:57)
[2017-11-13] MEDS: FLUTICASONE HFA 110 MCG 12 GM INHALER (FLOVENT) INH ×2 (09:16)
[2017-11-13] MEDS: SERTRALINE 100 MG TAB PO ×2 (20:57)
[2017-11-13] MEDS: ATORVASTATIN 20 MG TAB PO ×2 (20:57)
[2017-11-13] MEDS: MONTELUKAST 10 MG TAB PO ×2 (20:57)
[2017-11-13] MEDS: POLYVINYL ALCOHOL OPHTH SOLN 15 ML(LIQUITEARS) OU ×2 (20:57)
[2017-11-13] MEDS: PERCOCET 5MG/325MG TAB PO ×2 (21:00)
[2017-11-14] MEDS: LEVOTHYROXINE 75MCG TABLET (0.075MG) PO ×2 (05:32)
[2017-11-14] MEDS: OXYMETAZOLINE NASAL SPRAY (AFRIN) ×2 (05:33)
[2017-11-14 06:04] LABS: HEMATOCRIT 28.3 % (36.0-47.0); MEAN CORPUSCULAR HEMOGLOBIN 30.1 pg (27.0-33.0); MEAN CORPUSCULAR HGB CONC 31.8 g/dl (32.0-36.5); MEAN CORPUSCULAR VOLUME 94.6 fl (80.0-96.0); PLATELET COUNT, AUTOMATED 173 10^3/uL (150-450); RED BLOOD COUNT 2.99 10^6/uL (4.00-5.40); RED CELL DISTRIBUTION WIDTH 17.2 % (11.5-14.5); WHITE BLOOD COUNT 4.1 10^3/uL (4.0-10.0)
[2017-11-14 06:21] LABS: ANION GAP 5 MEQ/L (8-16); BLOOD UREA NITROGEN 19 MG/DL (7-18); CALCIUM LEVEL 9.3 MG/DL (8.8-10.2); CARBON DIOXIDE LEVEL 27 MEQ/L (21-32); CHLORIDE LEVEL 112 MEQ/L (98-107); CREATININE FOR GFR 0.85 MG/DL (0.55-1.30); GLOMERULAR FILTRATION RATE > 60.0 (>32); GLUCOSE, FASTING 102 MG/DL (70-100); POTASSIUM SERUM 4.4 MEQ/L (3.5-5.1); SODIUM LEVEL 144 MEQ/L (136-145)
[2017-11-14] MEDS: FLUTICASONE HFA 110 MCG 12 GM INHALER (FLOVENT) INH ×2 (07:51)
[2017-11-14] MEDS: SENOKOT S TAB PO ×2 (10:11)
[2017-11-14] MEDS: GABAPENTIN 300 MG CAP PO ×2 (10:11)
[2017-11-14] MEDS: DOCUSATE SODIUM 100 MG CAP PO ×2 (10:11)
[2017-11-14] MEDS: FOLIC ACID 1 MG TAB PO ×2 (10:12)
[2017-11-14] MEDS: ASPIRIN 81 MG ENTERIC TAB PO ×2 (10:12)
[2017-11-14] MEDS: LORATADINE 10 MG TAB PO ×2 (10:12)
[2017-11-14] MEDS: OMEPRAZOLE 20 MG CAP PO ×2 (10:12)
[2017-11-14] MEDS: SODIUM CHLORIDE NASAL 0.65% SPRAY BTL (OCEAN) ×2 (10:13)
[2017-11-14] MEDS: HYDROXYCHLOROQUINE 200 MG TAB PO ×2 (10:13)
[2017-11-14] MEDS: ALLOPURINOL 100 MG TAB PO ×2 (10:13)
[2017-11-14] MEDS: amLODIPine 10 MG TAB PO ×2 (10:17)
[2017-11-14] MEDS: LOSARTAN 50 MG TAB PO ×2 (10:17)
== END 2017-11-14 13:40 | disposition home health service (06) | DRG 935 ==
LOC: M MSPAV 11-10 15:50 → M ED 11:50 → M ED INP 17:30 → M MS4PR 20:23
DX: T24.212A Burn of second degree of left thigh, initial encounter (principal); D62 Acute posthemorrhagic anemia; S02.2XXA Fracture of nasal bones, initial encounter for closed fracture; G47.33 Obstructive sleep apnea (adult) (pediatric); I48.2 Chronic atrial fibrillation; I10 Essential (primary) hypertension; E03.9 Hypothyroidism, unspecified; K21.9 Gastro-esophageal reflux disease without esophagitis; M10.9 Gout, unspecified; E78.5 Hyperlipidemia, unspecified; J45.909 Unspecified asthma, uncomplicated; R04.0 Epistaxis; M06.9 Rheumatoid arthritis, unspecified; M81.0 Age-related osteoporosis without current pathological fracture; Z86.73 Personal history of transient ischemic attack (TIA), and cerebral infarction without residual deficits; F39 Unspecified mood [affective] disorder; R26.89 Other abnormalities of gait and mobility; Z79.01 Long term (current) use of anticoagulants; G89.29 Other chronic pain; Z79.899 Other long term (current) drug therapy; K64.8 Other hemorrhoids; Z96.651 Presence of right artificial knee joint; Z88.5 Allergy status to narcotic agent; Z88.2 Allergy status to sulfonamides; X12.XXXA Contact with other hot fluids, initial encounter; Y92.009 Unspecified place in unspecified non-institutional (private) residence as the place of occurrence of the external cause; Y93.9 Activity, unspecified; Y99.9 Unspecified external cause status

== ENCOUNTER 2017-12-19 22:10 | Emergency (ER) | payer MEDICARE, MEDICAID ==
[2017-12-19] MEDS: PERCOCET 5MG/325MG TAB PO (23:32)
[2017-12-20] MEDS: OXYCODONE/APAP 5MG/325MG(BULK FOR ED) 1 TABLET PO (00:24)
== END 2017-12-20 00:45 | disposition home or self-care (01) ==
LOC: M ED 12-20 00:45
DX: M25.561 Pain in right knee (principal); I10 Essential (primary) hypertension; J45.909 Unspecified asthma, uncomplicated; G47.33 Obstructive sleep apnea (adult) (pediatric); E78.5 Hyperlipidemia, unspecified; K21.9 Gastro-esophageal reflux disease without esophagitis; E03.9 Hypothyroidism, unspecified; F33.9 Major depressive disorder, recurrent, unspecified; R56.9 Unspecified convulsions; Z79.890 Hormone replacement therapy; Z79.899 Other long term (current) drug therapy; Z79.01 Long term (current) use of anticoagulants; Z79.82 Long term (current) use of aspirin; Z79.51 Long term (current) use of inhaled steroids; Z88.5 Allergy status to narcotic agent; Z88.0 Allergy status to penicillin; Z88.2 Allergy status to sulfonamides; Z96.9 Presence of functional implant, unspecified; Z86.69 Personal history of other diseases of the nervous system and sense organs; Z86.718 Personal history of other venous thrombosis and embolism
CPT/HCPCS: 73564

== ENCOUNTER → 2017-12-21 | Outpatient (REF) | payer MEDICARE, MEDICAID ==
[2017-12-21 12:53] LABS: BASO % 0.4 % (0.0-1.0); EOS # 0.1 10^3/uL (0.0-0.50); EOS % 1.8 % (0.0-3.0); HEMATOCRIT 32.4 % (36.0-47.0); IMMATURE GRANULOCYTE % 0.5 % (0-3.0); LYMPH # 0.8 10^3/uL (1.5-4.5); LYMPH % 10.5 % (24.0-44.0); MEAN CORPUSCULAR HGB CONC 30.9 g/dl (32.0-36.5); MEAN CORPUSCULAR VOLUME 93.9 fl (80.0-96.0); MONO # 0.6 10^3/uL (0.0-0.8); MONO % 7.4 % (0.0-5.0); NEUTROPHILS % 79.4 % (36.0-66.0); PLATELET COUNT, AUTOMATED 296 10^3/uL (150-450); RED BLOOD COUNT 3.45 10^6/uL (4.00-5.40); RED CELL DISTRIBUTION WIDTH 16.6 % (11.5-14.5); WHITE BLOOD COUNT 7.6 10^3/uL (4.0-10.0)
[2017-12-21 13:14] LABS: ALBUMIN 3.5 GM/DL (3.2-5.2); ALT/SGPT 34 U/L (12-78); AST/SGOT 38 U/L (7-37); C REACTIVE PROTEIN QUANTITATIV 1.74 MG/DL (0.00-0.30); CREATININE FOR GFR 1.04 MG/DL (0.55-1.30); GLOMERULAR FILTRATION RATE 53.5 (>32)
[2017-12-21 13:40] LABS: ERYTHROCYTE SEDIMENTATION RATE 67 mm/hr (0-42)
== END ==
LOC: M LABDRAW1 11:04
DX: Z51.81 Encounter for therapeutic drug level monitoring (principal); Z79.899 Other long term (current) drug therapy
CPT/HCPCS: 84460

== ENCOUNTER → 2017-12-21 | Outpatient (REF) | payer MEDICARE, MEDICAID ==
[2017-12-21 12:50] LABS: BASO % 0.4 % (0.0-1.0); EOS # 0.1 10^3/uL (0.0-0.50); EOS % 1.7 % (0.0-3.0); HEMATOCRIT 32.4 % (36.0-47.0); IMMATURE GRANULOCYTE % 0.4 % (0-3.0); LYMPH # 0.8 10^3/uL (1.5-4.5); LYMPH % 10.7 % (24.0-44.0); MEAN CORPUSCULAR HGB CONC 30.9 g/dl (32.0-36.5); MEAN CORPUSCULAR VOLUME 93.9 fl (80.0-96.0); MONO # 0.6 10^3/uL (0.0-0.8); MONO % 7.7 % (0.0-5.0); NEUTROPHILS # 6.1 10^3/uL (1.8-7.7); NEUTROPHILS % 79.1 % (36.0-66.0); PLATELET COUNT, AUTOMATED 292 10^3/uL (150-450); RED BLOOD COUNT 3.45 10^6/uL (4.00-5.40); RED CELL DISTRIBUTION WIDTH 16.8 % (11.5-14.5); WHITE BLOOD COUNT 7.8 10^3/uL (4.0-10.0)
[2017-12-21 13:07] LABS: C REACTIVE PROTEIN QUANTITATIV 1.83 MG/DL (0.00-0.30)
[2017-12-21 13:40] LABS: ERYTHROCYTE SEDIMENTATION RATE 67 mm/hr (0-42)
== END ==
LOC: M LABDRAW1 11:03
DX: Z96.651 Presence of right artificial knee joint (principal)
CPT/HCPCS: 36415

== ENCOUNTER → 2018-01-19 | Outpatient (CLI) | payer MEDICARE, MEDICAID | LOC: M RAD 09:33 | DX: Z96.651 Presence of right artificial knee joint (principal) | CPT/HCPCS: 78315 ==

== ENCOUNTER → 2018-02-02 | Outpatient (REF) | payer MEDICARE, MEDICAID ==
[2018-02-02 12:13] LABS: HEMATOCRIT 32.4 % (36.0-47.0); HEMOGLOBIN 9.8 g/dl (12.0-15.5); MEAN CORPUSCULAR HEMOGLOBIN 28.2 pg (27.0-33.0); MEAN CORPUSCULAR HGB CONC 30.2 g/dl (32.0-36.5); MEAN CORPUSCULAR VOLUME 93.1 fl (80.0-96.0); PLATELET COUNT, AUTOMATED 243 10^3/uL (150-450); RED BLOOD COUNT 3.48 10^6/uL (4.00-5.40); RED CELL DISTRIBUTION WIDTH 18.3 % (11.5-14.5); WHITE BLOOD COUNT 7.8 10^3/uL (4.0-10.0)
[2018-02-02 12:44] LABS: PTH INTACT 139.2 PG/ML (18.5-88.0)
[2018-02-02 14:15] LABS: ALBUMIN 3.6 GM/DL (3.2-5.2); ALBUMIN/GLOBULIN RATIO 0.97 (1.00-1.93); ALKALINE PHOSPHATASE 94 U/L (45-117); ALT/SGPT 16 U/L (12-78); ANION GAP 9 MEQ/L (8-16); AST/SGOT 19 U/L (7-37); BILIRUBIN,TOTAL 0.3 MG/DL (0.2-1.0); BLOOD UREA NITROGEN 30 MG/DL (7-18); CALCIUM LEVEL 9.6 MG/DL (8.8-10.2); CARBON DIOXIDE LEVEL 24 MEQ/L (21-32); CHLORIDE LEVEL 110 MEQ/L (98-107); CREATININE FOR GFR 0.99 MG/DL (0.55-1.30); GLOMERULAR FILTRATION RATE 56.6 (>32); GLUCOSE, FASTING 87 MG/DL (70-100); MAGNESIUM LEVEL 2.3 MG/DL (1.8-2.4); SODIUM LEVEL 143 MEQ/L (136-145); TOTAL PROTEIN 7.3 GM/DL (6.4-8.2)
== END ==
LOC: M SFHCPLAZ 10:53
DX: Z79.01 Long term (current) use of anticoagulants (principal); I48.0 Paroxysmal atrial fibrillation; I12.9 Hypertensive chronic kidney disease with stage 1 through stage 4 chronic kidney disease, or unspecified chronic kidney disease; N18.3 Chronic kidney disease, stage 3 (moderate); E03.9 Hypothyroidism, unspecified
CPT/HCPCS: 83735

== ENCOUNTER → 2018-02-19 | Outpatient (CLI) | payer MEDICARE, MEDICAID | LOC: M LRY 15:06 | DX: J45.901 Unspecified asthma with (acute) exacerbation (principal) | CPT/HCPCS: 71046; 94640 ==

== ENCOUNTER → 2018-05-23 | Outpatient (REF) | payer OTHER, MEDICAID ==
[2018-05-23 18:35] LABS: HEMATOCRIT 30.7 % (36.0-47.0); MEAN CORPUSCULAR HGB CONC 29.3 g/dl (32.0-36.5); MEAN CORPUSCULAR VOLUME 85.3 fl (80.0-96.0); PLATELET COUNT, AUTOMATED 306 10^3/uL (150-450); RED CELL DISTRIBUTION WIDTH 15.3 % (11.5-14.5); WHITE BLOOD COUNT 7.4 10^3/uL (4.0-10.0)
[2018-05-23 19:18] LABS: PTH INTACT 140.7 PG/ML (18.5-88.0)
[2018-05-23 19:20] LABS: ALBUMIN 3.5 GM/DL (3.2-5.2); ALBUMIN/GLOBULIN RATIO 0.92 (1.00-1.93); ALKALINE PHOSPHATASE 95 U/L (45-117); ALT/SGPT 16 U/L (12-78); ANION GAP 11 MEQ/L (8-16); AST/SGOT 22 U/L (7-37); BILIRUBIN,TOTAL 0.3 MG/DL (0.2-1.0); BLOOD UREA NITROGEN 32 MG/DL (7-18); CALCIUM LEVEL 9.6 MG/DL (8.8-10.2); CARBON DIOXIDE LEVEL 25 MEQ/L (21-32); CHLORIDE LEVEL 104 MEQ/L (98-107); CREATININE FOR GFR 1.14 MG/DL (0.55-1.30); GLUCOSE, FASTING 90 MG/DL (70-100); SODIUM LEVEL 140 MEQ/L (136-145); THYROID STIMULATING HORMONE 0.841 uIU/ML (0.358-3.740); TOTAL PROTEIN 7.3 GM/DL (6.4-8.2)
== END ==
LOC: M SFHCPLAZ 15:51
DX: N18.3 Chronic kidney disease, stage 3 (moderate) (principal); E03.9 Hypothyroidism, unspecified

== ENCOUNTER → 2018-07-21 | Outpatient (REF) | payer OTHER, MEDICAID, MEDICARE | LOC: M LAB REF 13:13 | DX: T24.002A Burn of unspecified degree of unspecified site of left lower limb, except ankle and foot, initial encounter (principal) | CPT/HCPCS: 87186 ==

== ENCOUNTER → 2018-09-11 | Outpatient (REF) | payer MEDICARE, MEDICAID ==
[~2018-09-11] MED LIST changes: -AMLO5TAB2 PO; +AMLO5TAB4 PO; +FLON1SPR; -FOLI1TAB4 PO; +FOLI1TAB5 PO; +FURO20TA2 PO; +GABA-1171 PO; -GABA-279 PO; -GABA-282 PO; +GABA-843 PO; +KLOR10TA76 PO; +LORA-243 PO; -LORA10TA2 PO; +METH2.5T48 PO; -METH2.5TA PO; +OCEA0.654; -POTA10CA PO; +PRED10PA2 PO; +SYST1SOL OU; +TRAM50TA2 PO
[2018-09-11 16:06] LABS: HEMATOCRIT 38.2 % (36.0-47.0); HEMOGLOBIN 11.6 g/dl (12.0-15.5); MEAN CORPUSCULAR HEMOGLOBIN 25.9 pg (27.0-33.0); MEAN CORPUSCULAR HGB CONC 30.4 g/dl (32.0-36.5); MEAN CORPUSCULAR VOLUME 85.3 fl (80.0-96.0); PLATELET COUNT, AUTOMATED 282 10^3/uL (150-450); RED BLOOD COUNT 4.48 10^6/uL (4.00-5.40); WHITE BLOOD COUNT 6.9 10^3/uL (4.0-10.0)
[2018-09-11 16:26] LABS: ALBUMIN 3.5 GM/DL (3.2-5.2); BILIRUBIN,TOTAL 0.3 MG/DL (0.2-1.0); CALCIUM LEVEL 9.3 MG/DL (8.8-10.2); CHOLESTEROL RISK RATIO 1.89 (<5); CREATININE FOR GFR 1.01 MG/DL (0.55-1.30); GLOMERULAR FILTRATION RATE 55.2 (>32); MAGNESIUM LEVEL 1.8 MG/DL (1.8-2.4); PERCENT SATURATION 10.3 % (13.2-45.0); POTASSIUM SERUM 4.6 MEQ/L (3.5-5.1); TOTAL PROTEIN 7.5 GM/DL (6.4-8.2); URIC ACID 4.7 MG/DL (2.6-6.0)
[2018-09-11 16:32] LABS: PTH INTACT 162.5 PG/ML (18.5-88.0)
== END ==
LOC: M SFHCPLAZ 14:08
PROVIDERS: ATTEND Internal Medicine Rheumatology
DX: N18.3 Chronic kidney disease, stage 3 (moderate) (principal); I12.9 Hypertensive chronic kidney disease with stage 1 through stage 4 chronic kidney disease, or unspecified chronic kidney disease; D50.9 Iron deficiency anemia, unspecified; E78.00 Pure hypercholesterolemia, unspecified; M10.9 Gout, unspecified
CPT/HCPCS: 36415; 80053; 80061; 82728; 83550; 83735; 83970; 84550; 85027; G0463

== ENCOUNTER 2018-09-20 22:48 | Emergency (ER) | payer MEDICARE, MEDICAID ==
[2018-09-21] MEDS: GABAPENTIN 100 MG CAP PO ×2 (01:21→02:00)
[2018-09-21] MEDS: ACETAMINOPHEN TAB 650MG DOSE (2X325MG) PO (01:21)
== END 2018-09-21 02:18 | disposition home or self-care (01) ==
LOC: M ED 22:48
DX: M54.31 Sciatica, right side (principal); M16.11 Unilateral primary osteoarthritis, right hip; M25.551 Pain in right hip; I10 Essential (primary) hypertension; E03.9 Hypothyroidism, unspecified; F32.9 Major depressive disorder, single episode, unspecified; R42 Dizziness and giddiness; Z86.73 Personal history of transient ischemic attack (TIA), and cerebral infarction without residual deficits; R56.9 Unspecified convulsions; Z86.718 Personal history of other venous thrombosis and embolism; Z79.899 Other long term (current) drug therapy; Z79.01 Long term (current) use of anticoagulants; Z79.82 Long term (current) use of aspirin; Z88.5 Allergy status to narcotic agent; Z88.0 Allergy status to penicillin; Z88.8 Allergy status to other drugs, medicaments and biological substances; Z88.2 Allergy status to sulfonamides
CPT/HCPCS: 93971

== ENCOUNTER 2018-10-14 12:10 | Emergency (ER) | payer MEDICARE, MEDICAID ==
[~2018-10-14] VITALS: Ht 162.6 cm; Wt 86.4 kg
[~2018-10-14 12:10] MED LIST changes: +AMLO10TA5 PO; -AMLO5TAB4 PO; +AMLO5TAB6 PO; +CALC1CAP31 PO; +CALC600T68 PO; +DULO30CA47 PO; +FOLI1TAB11 PO; -FOLI1TAB5 PO; +LEVO100T5 PO; +NEUR100C PO; +NEUR300C PO; +NYST1POW9 TOP; +VENTAER INH; +VITMTA PO
[2018-10-14] MEDS ORDERED: HYDROMORPHONE HCL 0.5 MG/ 0.5 ML SYRINGE (J1170 PER 1) IM ONE (12:30)
[2018-10-14] MEDS ORDERED: ONDANSETRON 4 MG ORAL DISINTEGRATING TAB (Q0162 PER 1MG) PO ONE (12:30)
--- NOTE | 2018-10-14 13:36 | REP ---
Right tib-fib series: Two views. History: Trauma. Findings: AP and lateral views of the right tibia and fibula are compared with prior study from July 21, 2006. A right knee arthroplasty is seen in position. Vascular calcification is noted. There are dystrophic soft-tissue calcifications in the calf. There is no evidence of fracture or subluxation. Impression: No traumatic abnormality noted. Right knee arthroplasty. Electronically Signed by Jorge Saunders MD 10/14/2018 02:31 P
--- NOTE | 2018-10-14 13:38 | REP ---
Right ankle series: Four views. History: Trauma. Findings: Four views of the right ankle are compared with the prior study from July 21, 2006. Findings: There is marked soft tissue swelling laterally and moderate soft tissues swelling medially. Ankle mortise is intact. There is diffuse osteopenia. Plantar calcaneal spurring is noted. Vascular calcification is seen and there is some midfoot osteoarthritis. In addition however, there is an avulsion chip fracture from the tip of the medial malleolus. Accessory ossicles are seen at the lateral malleolar tip. In addition, a avulsion chip fracture here is suspected from the lateral malleolar tip which appears acute. Lastly on the lateral radiograph, there is question of a nondisplaced vertically oriented fracture through the neck of the talus. Impression: Avulsion chip fractures from the medial malleolar and lateral malleolar tips. Marked soft tissue swelling. Question vertically oriented fracture through the neck of the talus. Consider foot radiographs and/or ankle CT scanning. Electronically Signed by Jorge Saunders MD 10/14/2018 02:31 P
--- NOTE | 2018-10-14 14:04 | REP ---
CT right ankle without contrast: History: Question fracture of the talus. Comparison is made with today's radiographs. Technique: Helical scanning is acquired and 2 mm axial images are generated. Coronal and sagittal multiplanar reformation images are generated and reviewed. CT findings: CT images confirm the presence of avulsion chip fractures from the anterior aspect of the medial malleolus and the posterior and inferior aspect of the lateral malleolar tip. There are several old accessory ossicles adjacent to the lateral malleolus as well. There is no talar neck fracture. However, there is a fragmented avulsion fracture from the anterolateral surface of the talus. Fragments are displaced anteriorly and anterolaterally. No talar neck fracture is seen. There is some midfoot osteoarthritic spurring. Plantar and Achilles calcaneal spurring is noted. Also noted are midfoot fractures through the proximal end of the fourth, third, and second proximal metatarsal at the tarsometatarsal articulation. There is a chip fracture fragment in the medial cuneiform as well. Impression: Chip fractures from the medial and lateral malleoli as well as the anterolateral surface of the talus. No talar neck fracture is seen. Intra-articular fragments are suspected at the ankle joint. Also noted are nondisplaced midfoot fractures through the proximal ends of the second, third, and fourth metatarsals at the tarsometatarsal articulations. There is a chip fracture fragment through the medial cuneiform as well. Electronically Signed by Jorge Saunders MD 10/14/2018 02:33 P
[2018-10-14] MEDS ORDERED: NORCOTAB PO ×4 (14:29→14:44)
[2018-10-14] MEDS ORDERED: [UNRECOGNIZED DRUG - OTHER] XX (14:29)
[2018-10-14 14:35] VITALS: BP 150/68
== END 2018-10-14 14:44 | disposition home or self-care (01) ==
LOC: M ED 12:10 → EDBD 12:10 → M ED 14:44
DX: S82.844A Nondisplaced bimalleolar fracture of right lower leg, initial encounter for closed fracture (principal); S92.101A Unspecified fracture of right talus, initial encounter for closed fracture; S92.244A Nondisplaced fracture of medial cuneiform of right foot, initial encounter for closed fracture; S92.324A Nondisplaced fracture of second metatarsal bone, right foot, initial encounter for closed fracture; S92.334A Nondisplaced fracture of third metatarsal bone, right foot, initial encounter for closed fracture; S92.344A Nondisplaced fracture of fourth metatarsal bone, right foot, initial encounter for closed fracture; W01.198A Fall on same level from slipping, tripping and stumbling with subsequent striking against other object, initial encounter; Y92.091 Bathroom in other non-institutional residence as the place of occurrence of the external cause; E78.9 Disorder of lipoprotein metabolism, unspecified; I10 Essential (primary) hypertension; K21.9 Gastro-esophageal reflux disease without esophagitis; Z86.718 Personal history of other venous thrombosis and embolism; Z86.73 Personal history of transient ischemic attack (TIA), and cerebral infarction without residual deficits; E07.9 Disorder of thyroid, unspecified; F32.9 Major depressive disorder, single episode, unspecified; K57.92 Diverticulitis of intestine, part unspecified, without perforation or abscess without bleeding; Z79.899 Other long term (current) drug therapy; Z79.01 Long term (current) use of anticoagulants; Z79.82 Long term (current) use of aspirin; Z79.83 Long term (current) use of bisphosphonates; Z88.5 Allergy status to narcotic agent; Z88.3 Allergy status to other anti-infective agents; Z88.0 Allergy status to penicillin; Z88.2 Allergy status to sulfonamides
CPT/HCPCS: 73590; 73610; 73700; 96372; 99284; J1170; Q0162

== ENCOUNTER 2018-11-19 16:55 | Emergency (ER) | payer MEDICARE, MEDICAID ==
[~2018-11-19] VITALS: Ht 162.6 cm; Wt 86.4 kg
[~2018-11-19 16:55] MED LIST changes: +NORCOTAB PO; +[UNRECOGNIZED DRUG - OTHER] XX
[2018-11-19] MEDS ORDERED: MECL1CHW2 PO (17:31)
[2018-11-19] MEDS ORDERED: ACETAMINOPHEN TAB 650MG DOSE (2X325MG) PO ONE (18:15)
[2018-11-19 18:50] VITALS: BP 166/72
--- NOTE | 2018-11-20 07:29 | REP ---
CT BRAIN WITHOUT CONTRAST: 11/19/2018. Clinical history: CVA symptoms. Trauma. Comparison: 10/06/2018 CT. Findings. Soft tissue and bone window settings show lateral ventricles midline, symmetric and dilated. This is in proportion to the diffuse cerebral atrophy and represents no interval change. Atrophy greatest in the frontal and temporal lobes. There is an old lacunar infarct in left basal ganglia, unchanged. There is heterogeneous low attenuation white matter changes representing chronic small vessel white matter disease. This finding in the periventricular region is stable. 14 mm sclerotic lesion arises from the inner table of the left frontal skull. It is unchanged. I see no vascular territory infarct, intracranial hemorrhage, mass, mass effect or edema. No extra-axial fluid collections. The brainstem is intact. Cerebellum shows minimal atrophy and was unremarkable. Basal cisterns intact. Visualized mastoids and sinuses included were unremarkable. Skull base is unremarkable. The calvarium showed no fracture. There is a prominent left frontotemporal scalp hematoma without subjacent skull fracture or contrecoup injury. Impression: 1. Prominent left frontotemporal scalp hematoma without subjacent skull fracture, intracranial bleed or contusion. 2. Stable appearance of sclerotic lesion arising from the inner table of the left femoral skull representing enostosis and a benign finding. It is unchanged. No skull fractures of the calvarium or skull base. Sinuses and mastoids clear. 3. Old lacunar infarct left basal ganglia, chronic small vessel white matter ischemic changes, diffuse atrophy with proportionate ventriculomegaly, all stable. No intracranial hemorrhage. Electronically Signed by Yifan Merrill MD 11/20/2018 09:23 A
--- NOTE | 2018-11-20 07:32 | REP ---
CT CERVICAL SPINE WITHOUT CONTRAST: 11/19/2018. Comparison. 11/09/2017. Clinical history: Trauma. Findings: Trauma protocol utilized with coronal and sagittal reconstructions and bone window settings. There is diffuse cervical spondylosis greatest at C3-4 with prominent anterior osteophytes. Some posterior osteophytes and retrolisthesis of C3 on 4, C4 on 5 by a few millimeters. The other disc space heights from C4-5 through C6-7 show narrowing and spur formation. Smaller posterior osteophytes at C4-5 and C5-6, none at C6-7. There is some mild central canal stenosis at C4-5. The other central canal is adequate. There is foraminal encroachment at multiple levels due to uncinate and facet spurs. All this is stable. The dens is intact. Relationship to C1 on the sagittal and coronal images is normal. There is no acute fracture or compression deformity. Posterior elements show the spinous processes, lamina, pedicles, facets and transverse processes without fracture. Significant facet arthropathy noted at multiple levels. The lung apices were clear. The upper thoracic levels and portions of the first three paired ribs were seen and unremarkable. No prevertebral swelling. Impression: 1. No evidence for compression fracture, posterior element fracture or acute injury. 2. Spondylosis C3-4 through C6-7 greatest at C3-4 with retrolisthesis of a few millimeters at that level, less at C4-5. Central canal mildly narrowed at C3-4, adequate at the other levels. Foraminal encroachment, mild at several levels due to combined factors. There is no fracture or acute bony finding. Electronically Signed by Yifan Merrill MD 11/20/2018 09:23 A
--- NOTE | 2018-11-20 07:53 | REP ---
AP CHEST AND LEFT RIBS: 11/19/2018. Comparison chest x-ray 02/19/2018. Clinical history: Trauma. Pain lower left chest. Findings: AP chest: Lung garg are over penetrated limiting evaluation. No gross infiltrate or atelectasis. No definite effusion or pneumothorax. Heart not enlarged for AP supine chest. The aorta is calcified at the arch without aneurysm. Retrocardiac density consistent with the hiatal hernia seen on previous upright chest. This is overlying the midline. Bones demineralized. No gross abnormality on this AP chest. Left ribs: Four views are provided. That portion of clavicle, scapula and humerus without fracture or focal lesion. There are degenerative changes at the glenohumeral joint. No visible displaced fracture or focal rib lesion. Calcifications in costal cartilages noted. Bones are demineralized. The posterior rib articulations intact. There are advanced degenerative disc changes at multiple thoracic spine endplates with thoracic kyphosis as on the previous lateral chest. Impression: 1. AP chest without acute finding but limited by radiographic technique and overpenetration. 2. Hiatal hernia again noted. 3. Bones demineralized but no visible or displaced fracture, focal bone lesion, pleural effusion or pneumothorax in the left chest. Electronically Signed by Yifan Merrill MD 11/20/2018 09:25 A
--- NOTE | 2018-11-20 07:55 | REP ---
RIGHT HAND COMPLETE: 11/19/2018. Clinical history: Trauma. Third digit bruising and swelling. Findings: Four views are provided. I have no prior pertinent study or other history. The bones are severely demineralized. There is spondyloarthropathy with demineralization, prominent osteophytes and erosive arthritis involving DIP joints and PIP joints. In fact, the fourth and fifth digit PIP joints are fused as is the DIP joint of the fifth digit. There is a nondisplaced fracture to the middle phalanx proximal metaphysis. I have placed arrows on three of the four images where it is visible. I do not see other definite fracture. There are degenerative changes at the MCP joints with joint space narrowing but no erosions. There are vascular calcifications of the radial and ulnar arteries at the wrist. Carpal bones show degenerative changes with joint space narrowing but no fracture. The distal radius and ulna show no acute fracture. Impression: 1. Spondyloarthropathy with advanced erosive arthritis involving all of the IP joints of the digits but with fusion of the PIP joints of the fourth and fifth digit noted and DIP joint of the fifth digit. The other joints are severely narrowed irregular with sclerotic margins and some erosive changes. 2. Fracture of the proximal metaphysis of third digit middle phalanx, nondisplaced. 3. Severe osteoporosis. Small vessel calcifications of the forearm involving the radial and ulnar arteries. Electronically Signed by Yifan Merrill MD 11/20/2018 09:25 A
--- NOTE | 2018-11-27 20:03 | ED PDOC ---
Post-Departure Follow-Up dr medina faxed formal report of ct c spine for fu Feliz De Dios MD Nov 27, 2018 20:03
== END 2018-11-19 18:54 | disposition home or self-care (01) ==
LOC: EDBD 16:55 → M ED 16:55
DX: S00.03XA Contusion of scalp, initial encounter (principal); S62.642A Nondisplaced fracture of proximal phalanx of right middle finger, initial encounter for closed fracture; W18.49XA Other slipping, tripping and stumbling without falling, initial encounter; Y92.099 Unspecified place in other non-institutional residence as the place of occurrence of the external cause; Y93.9 Activity, unspecified; Y99.9 Unspecified external cause status; M81.0 Age-related osteoporosis without current pathological fracture; K44.9 Diaphragmatic hernia without obstruction or gangrene; M47.812 Spondylosis without myelopathy or radiculopathy, cervical region; I48.91 Unspecified atrial fibrillation; I10 Essential (primary) hypertension; M06.9 Rheumatoid arthritis, unspecified; G47.30 Sleep apnea, unspecified; K21.9 Gastro-esophageal reflux disease without esophagitis; J45.909 Unspecified asthma, uncomplicated; M10.9 Gout, unspecified; Z86.73 Personal history of transient ischemic attack (TIA), and cerebral infarction without residual deficits; Z79.82 Long term (current) use of aspirin; Z79.899 Other long term (current) drug therapy; Z88.5 Allergy status to narcotic agent; Z88.0 Allergy status to penicillin; Z88.2 Allergy status to sulfonamides; Z88.8 Allergy status to other drugs, medicaments and biological substances

== ENCOUNTER 2019-01-13 14:26 | Emergency (ER) | payer MEDICARE, MEDICAID ==
[~2019-01-13] VITALS: Ht 162.6 cm; Wt 86.4 kg
[~2019-01-13 14:26] MED LIST changes: -/AMLO25TA PO; -/MOM400 PO; -/WARF25TA; -/WARF25TA PO; -ACET50TA PO; -ASPI1TAB PO; -ASPI81CH PO; +ASPI81CH49 PO; +ASPI81TA26 PO; +BONI1TAB PO; +CALC1TAB8 PO; -CALC600T68 PO; +COUM1TAB18; +COUM1TAB18 PO; +FLUT50SP12; -FLUTISP; +HYDR-3715 PO; +MAPA500T17 PO; +MECL1CHW PO; +MILK10SU PO; -NORCOTAB PO; +NORV2TAB PO; +NYST-15 TOP; -NYST10PW TOP; +SCOP1PAT2 TOP; -TRAN1.5D2 TOP
[2019-01-13] MEDS ORDERED: ACETAMINOPHEN 500 MG TAB PO ONE (15:00)
--- NOTE | 2019-01-13 16:08 | REP ---
Duplex extremity venous ultrasound: Bilateral lower extremities. History: Back pain, rule out DVT. Findings: The deep veins are anechoic and fully compressible from the groin to the popliteal fossa in the left and right lower extremity. Color flow imaging is homogeneous. Spectral Doppler interrogation demonstrates intact respiratory variation in flow and normal manual augmentation of flow. There is no evidence of deep vein thrombosis. Impression: Negative bilateral lower extremity duplex venous ultrasound. No evidence of deep vein thrombosis. Electronically Signed by Jorge Saunders MD 01/13/2019 04:00 P
[2019-01-13 16:33] LABS: BASO % 0.3 % (0.0-1.0); EOS # 0.1 10^3/uL (0.0-0.50); EOS % 1.2 % (0.0-3.0); HEMATOCRIT 35.5 % (36.0-47.0); HEMOGLOBIN 10.8 g/dl (12.0-15.5); LYMPH # 1.1 10^3/uL (1.5-4.5); LYMPH % 13.8 % (24.0-44.0); MEAN CORPUSCULAR HEMOGLOBIN 26.8 pg (27.0-33.0); MEAN CORPUSCULAR HGB CONC 30.4 g/dl (32.0-36.5); MEAN CORPUSCULAR VOLUME 88.1 fl (80.0-96.0); MONO # 0.6 10^3/uL (0.0-0.8); MONO % 8.2 % (0.0-5.0); NEUTROPHILS # 5.9 10^3/uL (1.8-7.7); NEUTROPHILS % 76.4 % (36.0-66.0); PLATELET COUNT, AUTOMATED 241 10^3/uL (150-450); RED BLOOD COUNT 4.03 10^6/uL (4.00-5.40); WHITE BLOOD COUNT 7.8 10^3/uL (4.0-10.0)
[2019-01-13 17:02] LABS: ALBUMIN 3.7 GM/DL (3.2-5.2); ALT/SGPT 18 U/L (12-78); BILIRUBIN,DIRECT < 0.1 MG/DL (0.0-0.2); BILIRUBIN,TOTAL 0.3 MG/DL (0.2-1.0); BLOOD UREA NITROGEN 26 MG/DL (7-18); C REACTIVE PROTEIN QUANTITATIV 0.34 MG/DL (0.00-0.30); CALCIUM LEVEL 9.6 MG/DL (8.8-10.2); CARBON DIOXIDE LEVEL 28 MEQ/L (21-32); CHLORIDE LEVEL 105 MEQ/L (98-107); CREATININE FOR GFR 1.02 MG/DL (0.55-1.30); GLOMERULAR FILTRATION RATE 54.6 (>32); GLUCOSE, FASTING 107 MG/DL (70-100); POTASSIUM SERUM 4.6 MEQ/L (3.5-5.1); SODIUM LEVEL 140 MEQ/L (136-145); TOTAL PROTEIN 7.1 GM/DL (6.4-8.2)
[2019-01-13 17:09] LABS: ERYTHROCYTE SEDIMENTATION RATE 69 mm/hr (0-42)
[2019-01-13] MEDS ORDERED: cloNIDine 0.1 MG TAB PO ONE (18:15)
[2019-01-13 18:31] VITALS: BP 212/84
--- NOTE | 2019-01-14 07:32 | REP ---
Right shoulder series: Three views. History: Right shoulder pain. Comparison is made with chest radiograph from November 19, 2018 and a prior shoulder x-ray from October 21, 2015. Findings: There is glenohumeral osteoarthritic spurring similar to the 2016 prior study. AC joint hypertrophy and narrowing are also seen. Glenohumeral and acromioclavicular joints are normally aligned. Periarticular soft tissues are unremarkable. No acute bony abnormality is seen. There is soft tissue fullness along the right heart border with a granulomatous calcification in the right base. This is similar to the appearance on chest x-ray from November 2018. Impression: Osteoarthritic changes. Cardiomegaly prominent right heart border unchanged from November 22, 2018 chest x-ray granulomatous calcification right lung base. Electronically Signed by Jorge Saunders MD 01/14/2019 07:53 A
--- NOTE | 2019-01-14 07:32 | REP ---
Lumbar spine series: Five views: History: Right shoulder pain. Comparison lumbar spine radiographs are from January 17, 2014. Findings: There is a surgical clip in the right upper quadrant of the abdomen. There is a calcification in the right upper quadrant unchanged. Vascular calcification is seen in a normal caliber aorta. Lumbar vertebral body heights are preserved. There is advanced degenerative disc disease at L2-3 and L3-4. This is not new although there is more sclerosis and spurring particularly at L3-4 compared to the prior study. No fracture or collapse is seen. There is osteoarthritic facet hypertrophy and sclerosis bilaterally at L4-5 and L5-S1, right more so than left. This is also somewhat more prominent. Osteoarthritis is seen in the hips. Impression: Advanced degenerative spondylosis changes radiographically more pronounced than on the January 17, 2014 prior study. Electronically Signed by Jorge Saunders MD 01/14/2019 07:54 A
--- NOTE | 2019-01-14 07:32 | REP ---
Right ankle series: Four views. History: Pain. Findings: Four views of the right ankle demonstrate diffuse osteopenia. Extensive vascular calcifications noted. Plantar calcaneal spurring is noted. Midfoot osteoarthritic spurring is seen. There is accessory ossicle formation and spurring at the medial and lateral malleoli. There is soft tissue swelling at the lateral malleolus. I suspect a lateral the malleolar a avulsion chip fracture. No other finding. Impression: Suspected lateral malleolar chip fracture. Overlying soft tissue swelling. Accessory ossicles medially and laterally at the ankle. Osteoarthritis the midfoot. Heel spurs. Vascular calcification. Electronically Signed by Jorge Saunders MD 01/14/2019 07:54 A
== END 2019-01-13 18:45 | disposition home or self-care (01) ==
LOC: M ED 14:26 → EDBD 14:26 → M ED 18:45
DX: M79.621 Pain in right upper arm (principal); M25.571 Pain in right ankle and joints of right foot; M54.5 Low back pain; I10 Essential (primary) hypertension; M06.9 Rheumatoid arthritis, unspecified; Z86.73 Personal history of transient ischemic attack (TIA), and cerebral infarction without residual deficits; M19.90 Unspecified osteoarthritis, unspecified site; K21.9 Gastro-esophageal reflux disease without esophagitis; J45.909 Unspecified asthma, uncomplicated; M10.9 Gout, unspecified; E03.9 Hypothyroidism, unspecified; M77.31 Calcaneal spur, right foot; M47.816 Spondylosis without myelopathy or radiculopathy, lumbar region; M19.011 Primary osteoarthritis, right shoulder; I51.7 Cardiomegaly; R91.8 Other nonspecific abnormal finding of lung field; Z79.82 Long term (current) use of aspirin; Z79.01 Long term (current) use of anticoagulants; Z79.899 Other long term (current) drug therapy; Z88.0 Allergy status to penicillin; Z88.2 Allergy status to sulfonamides; Z88.5 Allergy status to narcotic agent; Z88.8 Allergy status to other drugs, medicaments and biological substances

== ENCOUNTER → 2019-02-23 | Outpatient (REF) | payer MEDICARE, MEDICAID ==
[2019-02-23 12:13] LABS: HEMATOCRIT 33.3 % (36.0-47.0); HEMOGLOBIN 10.1 g/dl (12.0-15.5); MEAN CORPUSCULAR HEMOGLOBIN 25.8 pg (27.0-33.0); MEAN CORPUSCULAR HGB CONC 30.3 g/dl (32.0-36.5); MEAN CORPUSCULAR VOLUME 84.9 fl (80.0-96.0); PLATELET COUNT, AUTOMATED 299 10^3/uL (150-450); RED BLOOD COUNT 3.92 10^6/uL (4.00-5.40); WHITE BLOOD COUNT 5.5 10^3/uL (4.0-10.0)
[2019-02-23 12:39] LABS: ALBUMIN 3.3 GM/DL (3.2-5.2); BILIRUBIN,TOTAL 0.3 MG/DL (0.2-1.0); CALCIUM LEVEL 9.9 MG/DL (8.8-10.2); CHOLESTEROL RISK RATIO 2.2 (<5); CREATININE FOR GFR 1.02 MG/DL (0.55-1.30); GLOMERULAR FILTRATION RATE 54.6 (>32); MAGNESIUM LEVEL 2.1 MG/DL (1.8-2.4); POTASSIUM SERUM 4.8 MEQ/L (3.5-5.1); TOTAL PROTEIN 6.7 GM/DL (6.4-8.2)
[2019-02-23 12:46] LABS: PTH INTACT 55.1 PG/ML (18.5-88.0)
== END ==
LOC: M LAB REF 11:08
PROVIDERS: ATTEND Internal Medicine
DX: N18.3 Chronic kidney disease, stage 3 (moderate) (principal); I12.9 Hypertensive chronic kidney disease with stage 1 through stage 4 chronic kidney disease, or unspecified chronic kidney disease; E78.00 Pure hypercholesterolemia, unspecified

== ENCOUNTER → 2019-02-28 | Outpatient (REF) | payer MEDICARE, MEDICAID ==
[2019-02-28 18:04] LABS: APPEARANCE, URINE HAZY (CLEAR); BACTERIA, URINE AUTO 1+ (NEGATIVE); BILIRUBIN, URINE AUTO NEGATIVE (NEGATIVE); BLOOD, URINE BLOOD NEGATIVE (NEGATIVE); COLOR, URINE YELLOW (YELLOW); GLUCOSE, URINE (UA) AUTO NEGATIVE (NEGATIVE); KETONE, URINE AUTO NEGATIVE (NEGATIVE); LEUKOCYTE ESTERASE, URINE AUTO 1+ (NEGATIVE); NITRITE, URINE AUTO NEGATIVE (NEGATIVE); PROTEIN, URINE AUTO NEGATIVE (NEGATIVE); RBC, URINE AUTO 3 /HPF (0-3); SQUAMOUS EPITHELIAL CELL UR AU 0 /HPF (0-6); UROBILINOGEN, URINE AUTO 0.2 mg/dL (0.0-2.0); WBC, URINE AUTO 43 /HPF (0-3)
== END ==
LOC: M SFHCPLAZ 16:03
PROVIDERS: ATTEND Internal Medicine
DX: R30.0 Dysuria (principal)
CPT/HCPCS: 81001; 87086; G0463

== ENCOUNTER 2019-04-23 13:48 | Emergency (ER) | payer MEDICARE, MEDICAID ==
[~2019-04-23] VITALS: Ht 162.6 cm; Wt 86.4 kg
[~2019-04-23 13:48] MED LIST changes: +OMEP20CA4 PO
[2019-04-23 15:34] LABS: BASO % 0.6 % (0.0-1.0); EOS # 0.4 10^3/uL (0.0-0.50); EOS % 5.4 % (0.0-3.0); HEMATOCRIT 34.6 % (36.0-47.0); HEMOGLOBIN 11.3 g/dl (12.0-15.5); LYMPH # 1.3 10^3/uL (1.5-4.5); LYMPH % 19.9 % (24.0-44.0); MEAN CORPUSCULAR HEMOGLOBIN 29.8 pg (27.0-33.0); MEAN CORPUSCULAR HGB CONC 32.7 g/dl (32.0-36.5); MEAN CORPUSCULAR VOLUME 91.3 fl (80.0-96.0); MONO # 0.4 10^3/uL (0.0-0.8); MONO % 5.9 % (0.0-5.0); NEUTROPHILS # 4.5 10^3/uL (1.8-7.7); NEUTROPHILS % 67.9 % (36.0-66.0); PLATELET COUNT, AUTOMATED 206 10^3/uL (150-450); RED BLOOD COUNT 3.79 10^6/uL (4.00-5.40); WHITE BLOOD COUNT 6.6 10^3/uL (4.0-10.0)
[2019-04-23 16:02] LABS: ALBUMIN 3.2 GM/DL (3.2-5.2); ALT/SGPT 18 U/L (12-78); BILIRUBIN,DIRECT < 0.1 MG/DL (0.0-0.2); BILIRUBIN,TOTAL 0.3 MG/DL (0.2-1.0); BLOOD UREA NITROGEN 25 MG/DL (7-18); CARBON DIOXIDE LEVEL 26 MEQ/L (21-32); CHLORIDE LEVEL 111 MEQ/L (98-107); CK-MB VALUE MASS 2.1 NG/ML (<3.6); CPK CREATINE PHOSPHOKINASE 109 U/L (26-192); CREATININE FOR GFR 1.08 MG/DL (0.55-1.30); GLUCOSE, FASTING 94 MG/DL (70-100); LIPASE 123 U/L (73-393); MB/CK RELATIVE INDEX 1.93 (< OR =4); POTASSIUM SERUM 5.6 MEQ/L (3.5-5.1); SODIUM LEVEL 140 MEQ/L (136-145); TOTAL PROTEIN 7.1 GM/DL (6.4-8.2); TROPONIN I < 0.02 NG/ML (< 0.10)
[2019-04-23] MEDS ORDERED: ONDANSETRON 4MG/2ML VIAL (J2405) IV ONE (17:15)
[2019-04-23] MEDS ORDERED: NITROFURANTOIN (MACROBID) 100 MG CAP PO ONE (17:45)
[2019-04-23] MEDS ORDERED: MACR100C43 PO (17:46)
--- NOTE | 2019-04-23 17:51 | REP ---
PORTABLE CHEST: AP portable view of the chest is performed and compared to prior study of 11/19/2018. I see no acute infiltrate. Heart is upper limits of normal in size. There is a large hiatal hernia. There is calcification and tortuosity of the thoracic aorta. The mediastinal silhouette is unchanged. IMPRESSION: No evidence of acute infiltrate. Electronically Signed by Mushtaq Wills MD 04/24/2019 05:01 P
[2019-04-23 18:03] VITALS: BP 176/74
--- NOTE | 2019-04-23 20:10 | ECGEPIP ---
[facility] - ED Test Date: 2019-04-23 Pat Name: PADMAJA ROD Department: Room: - Gender: Female Personal Injury Legal Assistant: ILANA : [id number] Requested By: Feliz Escalera Order Number: [id number] Reading MD: King Bernstein Measurements Intervals [place] Rate: 60 P: 29 DC: 165 QRS: QRSD: 89 T: 22 QT: 415 QTc: 415 Interpretive Statements SINUS RHYTHM BORDERLINE LEFT AXIS DEVIATION NSTTW ABNORMALITIES SIMILAR TO 10/06/18 Electronically Signed on 04-23-2019 20:10:23 EDT by King Bernstein
--- NOTE | 2019-04-24 08:14 | REP ---
REASON: Altered mental status: COMPARISON EXAMINATION: 11/19/2018 There is cerebral and cerebellar atrophy status quo. There is no evidence of acute intracranial hemorrhagic or nonhemorrhagic event. There are no extra-axial fluid collections. There is no shift of the midline structures. The ventricles and sulci are unchanged. There is no change in the appearance of the deep cerebral white matter. There is no skull fracture. IMPRESSION: No evidence of acute intracranial pathology. Chronic changes. Electronically Signed by Gt Le DO 04/24/2019 10:02 A
== END 2019-04-23 18:23 | disposition home or self-care (01) ==
LOC: M ED 13:48
DX: N30.00 Acute cystitis without hematuria (principal); I51.9 Heart disease, unspecified; I10 Essential (primary) hypertension; G89.29 Other chronic pain; E07.9 Disorder of thyroid, unspecified; Z79.82 Long term (current) use of aspirin; Z79.899 Other long term (current) drug therapy; Z88.0 Allergy status to penicillin; Z88.2 Allergy status to sulfonamides; Z88.5 Allergy status to narcotic agent; Z88.8 Allergy status to other drugs, medicaments and biological substances

== ENCOUNTER → 2019-07-10 | Outpatient (REF) | payer MEDICARE, MEDICAID ==
[~2019-07-10] MED LIST changes: +MACR100C43 PO
[2019-07-10 17:16] LABS: HEMATOCRIT 40.4 % (36.0-47.0); HEMOGLOBIN 12.7 g/dl (12.0-15.5); MEAN CORPUSCULAR HEMOGLOBIN 30.5 pg (27.0-33.0); MEAN CORPUSCULAR HGB CONC 31.4 g/dl (32.0-36.5); MEAN CORPUSCULAR VOLUME 97.1 fl (80.0-96.0); PLATELET COUNT, AUTOMATED 250 10^3/uL (150-450); RED BLOOD COUNT 4.16 10^6/uL (4.00-5.40); WHITE BLOOD COUNT 6.4 10^3/uL (4.0-10.0)
[2019-07-10 17:45] LABS: ALBUMIN 3.6 GM/DL (3.2-5.2); ALT/SGPT 21 U/L (12-78); BILIRUBIN,TOTAL 0.4 MG/DL (0.2-1.0); BLOOD UREA NITROGEN 21 MG/DL (7-18); CALCIUM LEVEL 9.9 MG/DL (8.8-10.2); CARBON DIOXIDE LEVEL 28 MEQ/L (21-32); CHLORIDE LEVEL 105 MEQ/L (98-107); CREATININE FOR GFR 0.94 MG/DL (0.55-1.30); FERRITIN 43 NG/ML (8-252); GLOMERULAR FILTRATION RATE 59.8 (>32); GLUCOSE, FASTING 93 MG/DL (70-100); IRON (FE) 94 UG/DL (50-170); MAGNESIUM LEVEL 2.1 MG/DL (1.8-2.4); PERCENT SATURATION 27.2 % (13.2-45.0); POTASSIUM SERUM 4.4 MEQ/L (3.5-5.1); SODIUM LEVEL 141 MEQ/L (136-145); TOTAL IRON BINDING CAPACITY 346 UG/DL (250-450); TOTAL PROTEIN 7.2 GM/DL (6.4-8.2)
[2019-07-10 17:47] LABS: PTH INTACT 81.5 PG/ML (18.5-88.0); TOTAL 25(OH) VITAMIN D 18.5 NG/ML (30.0-100.0); VITAMIN B12 LEVEL 719 PG/ML
[2019-07-10 17:48] LABS: FOLATE > 24.0 NG/ML
== END ==
LOC: M SFHCPLAZ 15:30
PROVIDERS: ATTEND Internal Medicine
DX: I12.9 Hypertensive chronic kidney disease with stage 1 through stage 4 chronic kidney disease, or unspecified chronic kidney disease (principal); N18.3 Chronic kidney disease, stage 3 (moderate); E03.9 Hypothyroidism, unspecified; R41.0 Disorientation, unspecified; F34.1 Dysthymic disorder; Z79.01 Long term (current) use of anticoagulants; Z86.718 Personal history of other venous thrombosis and embolism; E78.00 Pure hypercholesterolemia, unspecified; I48.0 Paroxysmal atrial fibrillation; Z23 Encounter for immunization
CPT/HCPCS: 36415; 80053; 82306; 82607; 82728; 82746; 83550; 83735; 83970; 84443; 85027; 90682; G0008; G0463

== ENCOUNTER → 2019-09-11 | Outpatient (CLI) | payer MEDICARE, MEDICAID ==
[~2019-09-11] MED LIST changes: +OMEP-172 PO; -OMEP20CA4 PO
== END ==
LOC: M PT 12:16
PROVIDERS: ATTEND Nurse Practitioner Adult Health
DX: Z76.89 Persons encountering health services in other specified circumstances (principal)

== ENCOUNTER → 2019-10-23 | Outpatient (REF) | payer MEDICARE, MEDICAID ==
[~2019-10-23] MED LIST changes: -MECL-68 PO; +MECL1TAB31 PO; -OMEP-172 PO; +OMEP1CAP73 PO
[2019-10-23 13:29] LABS: HEMATOCRIT 39.8 % (36.0-47.0); HEMOGLOBIN 12.6 g/dl (12.0-15.5); MEAN CORPUSCULAR HEMOGLOBIN 30.7 pg (27.0-33.0); MEAN CORPUSCULAR HGB CONC 31.7 g/dl (32.0-36.5); MEAN CORPUSCULAR VOLUME 96.8 fl (80.0-96.0); PLATELET COUNT, AUTOMATED 237 10^3/uL (150-450); RED BLOOD COUNT 4.11 10^6/uL (4.00-5.40); WHITE BLOOD COUNT 6.8 10^3/uL (4.0-10.0)
[2019-10-23 14:19] LABS: ALBUMIN 3.7 GM/DL (3.2-5.2); ALT/SGPT 19 U/L (12-78); BILIRUBIN,TOTAL 0.4 MG/DL (0.2-1.0); BLOOD UREA NITROGEN 27 MG/DL (7-18); CALCIUM LEVEL 10.4 MG/DL (8.8-10.2); CARBON DIOXIDE LEVEL 31 MEQ/L (21-32); CHLORIDE LEVEL 103 MEQ/L (98-107); CHOLESTEROL LEVEL 165 MG/DL (<200); CHOLESTEROL RISK RATIO 2.037 (<5); CREATININE FOR GFR 1.26 MG/DL (0.55-1.30); FERRITIN 28 NG/ML (8-252); GLOMERULAR FILTRATION RATE 42.7 (>32); GLUCOSE, FASTING 94 MG/DL (70-100); HDL CHOLESTEROL 81 MG/DL (>40); IRON (FE) 57 UG/DL (50-170); LDL CHOLESTEROL 65 MG/DL (<100); MAGNESIUM LEVEL 2.4 MG/DL (1.8-2.4); NON-HDL-C 84 MG/DL; PERCENT SATURATION 17.4 % (13.2-45.0); POTASSIUM SERUM 4.8 MEQ/L (3.5-5.1); PTH INTACT 52.3 PG/ML (18.5-88.0); SODIUM LEVEL 140 MEQ/L (136-145); TOTAL IRON BINDING CAPACITY 328 UG/DL (250-450); TOTAL PROTEIN 6.9 GM/DL (6.4-8.2); TRIGLYCERIDES LEVEL 95 MG/DL (<150); VITAMIN B12 LEVEL 1038 PG/ML
[2019-10-23 14:23] LABS: FOLATE > 24.0 NG/ML
[2019-10-23 14:36] LABS: TOTAL 25(OH) VITAMIN D 32.8 NG/ML (30.0-100.0)
== END ==
LOC: M SFHCPLAZ 11:36
PROVIDERS: ATTEND Nurse Practitioner Adult Health
DX: F34.1 Dysthymic disorder (principal); I12.9 Hypertensive chronic kidney disease with stage 1 through stage 4 chronic kidney disease, or unspecified chronic kidney disease; N18.3 Chronic kidney disease, stage 3 (moderate); R41.0 Disorientation, unspecified; E03.9 Hypothyroidism, unspecified; E78.00 Pure hypercholesterolemia, unspecified; I48.0 Paroxysmal atrial fibrillation; Z86.718 Personal history of other venous thrombosis and embolism; Z79.01 Long term (current) use of anticoagulants

== ENCOUNTER 2019-11-23 16:58 | Inpatient (IN) | payer MEDICARE, MEDICAID ==
[~2019-11-23] VITALS: Ht 157.5 cm; Wt 87.5 kg
[~2019-11-23 16:58] MED LIST changes: -MONT10TA2 PO; +MONT10TA4 PO
--- NOTE | 2019-11-23 17:35 | REPVR ---
PROCEDURE INFORMATION: Exam: CT Head Without Contrast Exam date and time: 11/23/2019 5:16 PM Age: 89 years old Clinical indication: Dizziness; Additional info: CVA - nursing interventions must not delay CT TECHNIQUE: Imaging protocol: Computed tomography of the head without contrast. Radiation optimization: All CT scans at this facility use at least one of these dose optimization techniques: automated exposure control; mA and/or kV adjustment per patient size (includes targeted exams where dose is matched to clinical indication); or iterative reconstruction. Other technique: STROKE PROTOCOL was implemented. COMPARISON: CT Head without contrast 04/23/2019 4:37 PM FINDINGS: Brain: No intracranial mass, mass effect or midline shift. No acute intracranial hemorrhage. No CT evidence of acute cortical infarct. Punctate remote basal ganglia lacunar infarcts Ventricles: Ventricles, cisterns, and sulci are normal in size for age. Bones/joints: No calvarial fracture or destructive process. Sinuses: Imaged paranasal sinuses are clear. Mastoid air cells: Mastoid air cells are normally aerated. Orbits: Imaged orbits are unremarkable. Soft tissues: No focal extracranial soft tissue swelling. IMPRESSION: 1. No acute or concerning focal intracranial abnormality. 2. Remote punctate basal ganglia lacunar infarcts ASSESSMENT: ASPECTS ([place] Stroke Program Early CT Score) 10 Electronically signed by: Meliton Castro On 11/23/2019 17:35:19 PM
--- NOTE | 2019-11-23 17:46 | REP ---
Portable chest, 05:28 p.m., single AP view with the patient sitting: Comparison is 04/23/2019. Lung garg are clear. There is a huge hiatal hernia masking the right cardiac border. Cardiac size cannot be determined. The raquel, mediastinum, skeletal structures are unremarkable. Impression: No acute cardiopulmonary findings. Huge hiatal hernia. Electronically Signed by Mushtaq Hernandez MD 11/23/2019 05:38 P
[2019-11-23 17:49] LABS: BASO # 0.1 10^3/uL (0.0-0.2); BASO % 0.8 % (0.0-1.0); EOS # 0.5 10^3/uL (0.0-0.5); EOS % 6.9 % (0.0-3.0); HEMATOCRIT 39.2 % (36.0-47.0); HEMOGLOBIN 12.4 g/dl (12.0-15.5); LYMPH # 1.7 10^3/uL (1.5-5.0); LYMPH % 25.5 % (24.0-44.0); MEAN CORPUSCULAR HEMOGLOBIN 30.8 pg (27.0-33.0); MEAN CORPUSCULAR HGB CONC 31.6 g/dl (32.0-36.5); MEAN CORPUSCULAR VOLUME 97.3 fl (80.0-96.0); MONO # 0.5 10^3/uL (0.0-0.8); MONO % 7.1 % (0.0-5.0); NEUTROPHILS # 3.9 10^3/uL (1.5-8.5); NEUTROPHILS % 59.5 % (36.0-66.0); PLATELET COUNT, AUTOMATED 233 10^3/uL (150-450); RED BLOOD COUNT 4.03 10^6/uL (4.00-5.40); WHITE BLOOD COUNT 6.5 10^3/uL (4.0-10.0)
[2019-11-23 18:00] LABS: INR 1.1
[2019-11-23 18:01] LABS: PARTIAL THROMBOPLASTIN TIME 35.5 SECONDS (25.0-38.4)
[2019-11-23 18:08] LABS: BLOOD UREA NITROGEN 24 MG/DL (7-18); CALCIUM LEVEL 10.2 MG/DL (8.8-10.2); CARBON DIOXIDE LEVEL 32 MEQ/L (21-32); CHLORIDE LEVEL 106 MEQ/L (98-107); CK-MB VALUE MASS 2.5 NG/ML (<3.6); CPK CREATINE PHOSPHOKINASE 133 U/L (26-192); CREATININE FOR GFR 0.97 MG/DL (0.55-1.30); GLOMERULAR FILTRATION RATE 57.7 (>32); GLUCOSE, FASTING 124 MG/DL (70-100); MB/CK RELATIVE INDEX 1.88 (< OR =4); POTASSIUM SERUM 4.7 MEQ/L (3.5-5.1); SODIUM LEVEL 140 MEQ/L (136-145); TROPONIN I < 0.02 NG/ML (< 0.10)
[2019-11-23] MEDS ORDERED: LACT10SO29 PO (18:20)
[2019-11-23] MEDS ORDERED: MECL-86 PO (18:20)
[2019-11-23] MEDS ORDERED: DULO60CA35 PO (18:20)
[2019-11-23] MEDS ORDERED: VENTAER INH (18:20)
[2019-11-23] MEDS ORDERED: PROAAER10 INH (18:20)
[2019-11-23] MEDS ORDERED: LABETALOL HCL 100 MG/20 ML VIAL IV STA ×2 (18:50→19:14)
[2019-11-23] MEDS ORDERED: LORazepam 2 MG/ML VIAL (J2060) IV STA (19:27)
--- NOTE | 2019-11-23 20:44 | REPVR ---
PROCEDURE INFORMATION: Exam: MR Head Without Contrast Exam date and time: 11/23/2019 6:53 PM Age: 89 years old Clinical indication: Dizziness; Prior surgery; Surgery date: 6+ months; Surgery type: Temporal artery clipping; Additional info: CVA TECHNIQUE: Imaging protocol: MR of the head without contrast. COMPARISON: MRI-Brain without Contrast 10/06/2018 7:44 PM FINDINGS: No abnormal restriction of diffusion to indicate acute CVA. Midline structures and cerebellar tonsillar position appear normal. Ventricles, cisterns and sulci are symmetrically prominent. No intracranial mass, midline shift or abnormal extra-axial fluid. No acute intracranial hemorrhage. No abnormal white matter signal on FLAIR and T2 sequences. Optic chiasm and pituitary infundibulum appear normal. Normal vascular flow voids in major intracranial arteries and dural venous sinuses. Paranasal sinuses are clear. Mastoid air cells are normally aerated. Optic globes and orbits are unremarkable. Incidental frontal calvarial hyperostosis IMPRESSION: No acute or concerning intracranial abnormality. Symmetric atrophy, with similar pattern compared to the prior MRI Electronically signed by: Meliton Castro On 11/23/2019 20:43:40 PM
--- NOTE | 2019-11-23 20:45 | REPVR ---
PROCEDURE INFORMATION: Exam: MR Angiogram Head Without Contrast, Arteries Exam date and time: 11/23/2019 6:53 PM Age: 89 years old Clinical indication: Dizziness and giddiness; Additional info: CVA TECHNIQUE: Imaging protocol: MR angiogram head without contrast. Exam focused on the arteries. COMPARISON: MRA BRAIN W/O CONTRAST 02/26/2016 5:54 PM FINDINGS: Anterior circulation: Normal flow signal and luminal caliber in the petrous, cavernous and supraclinoid internal carotid arteries. Normal appearance of the anterior cerebral artery branches and middle cerebral artery branches through the MCA trifurcations. No occlusion, high-grade focal stenosis or dissection. No aneurysm. Posterior circulation: Dominant left vertebral artery predominantly supplies the basilar artery. Diminutive right vertebral artery does extend to the vertebrobasilar junction Patent normal caliber basilar artery, and normal superior cerebellar and posterior cerebral arteries. No occlusion, high-grade stenosis or aneurysm. IMPRESSION: Unremarkable MR angiogram of the [place] and intracranial vertebrobasilar system. Electronically signed by: Meliton Castro On 11/23/2019 20:45:20 PM
[2019-11-23 21:00] VITALS: BP 164/60
[2019-11-23] MEDS: LACTULOSE 20 GM/30 ML SYRUP UD PO SCH (21:00)
[2019-11-23 22:23] VITALS: BP 132/70
[2019-11-23] MEDS ORDERED: MECLIZINE 25 MG TABLET PO PRN (23:15)
[2019-11-23] MEDS ORDERED: DOCUSATE SODIUM 100 MG CAP PO PRN (23:15)
[2019-11-23] MEDS ORDERED: ALBUTEROL 90 MCG/ACT 8GM HFA INHALER INH PRN ×2 (23:15)
[2019-11-23 23:59] VITALS: BP 162/68
[2019-11-24] VITALS (10 sets, daily range): BP systolic 115–160; BP diastolic 54–75
[2019-11-24] MEDS: SERTRALINE 100 MG TAB PO SCH ×2 (00:06→20:38)
[2019-11-24] MEDS: POTASSIUM CHLORIDE 10 MEQ SR TABLET PO SCH ×3 (00:07→20:38)
[2019-11-24] MEDS: APIXABAN 5 MG TAB (ELIQUIS) PO SCH ×3 (00:07→20:38)
[2019-11-24] MEDS: GABAPENTIN 300 MG CAP PO SCH ×3 (00:07→20:38)
[2019-11-24] MEDS: LEVOTHYROXINE 100MCG TABLET (0.1MG) PO SCH (05:33)
[2019-11-24] MEDS: LOSARTAN 50 MG TAB PO SCH (08:45)
[2019-11-24] MEDS: MULTIVITAMINS/MINERALS THERAP 1 TAB PO SCH (08:45)
[2019-11-24] MEDS: DULoxetine 30 MG CAP (CYMBALTA) PO SCH (08:45)
[2019-11-24] MEDS: MONTELUKAST 10 MG TAB PO SCH (08:45)
[2019-11-24] MEDS: ATORVASTATIN 20 MG TAB PO SCH (08:45)
[2019-11-24] MEDS: amLODIPine 10 MG TAB PO SCH (08:46)
[2019-11-24] MEDS: FOLIC ACID 1 MG TAB PO SCH (08:46)
[2019-11-24] MEDS: allopurinoL 100 MG TAB PO SCH (08:46)
[2019-11-24] MEDS: OMEPRAZOLE 20 MG CAP PO SCH (08:46)
[2019-11-24] MEDS: CALCITRIOL 0.25 MCG CAP (S0169) PO SCH (08:46)
[2019-11-24] MEDS: ASPIRIN 81 MG CHEW TABLET PO SCH (08:46)
[2019-11-24] MEDS: FUROSEMIDE 20 MG TAB PO SCH (08:46)
[2019-11-24] MEDS: LORATADINE 10 MG TAB PO SCH (08:47)
[2019-11-24] MEDS: LACTULOSE 20 GM/30 ML SYRUP UD PO SCH ×2 (08:47→20:40)
[2019-11-24 08:54] LABS: HEMATOCRIT 36.3 % (36.0-47.0); HEMOGLOBIN 11.6 g/dl (12.0-15.5); MEAN CORPUSCULAR HEMOGLOBIN 30.9 pg (27.0-33.0); MEAN CORPUSCULAR VOLUME 96.8 fl (80.0-96.0); PLATELET COUNT, AUTOMATED 206 10^3/uL (150-450); RED BLOOD COUNT 3.75 10^6/uL (4.00-5.40); WHITE BLOOD COUNT 5.5 10^3/uL (4.0-10.0)
[2019-11-24 09:15] LABS: ALBUMIN 3.2 GM/DL (3.2-5.2); BILIRUBIN,TOTAL 0.3 MG/DL (0.2-1.0); CREATININE FOR GFR 0.95 MG/DL (0.55-1.30); GLOMERULAR FILTRATION RATE 59.1 (>32); POTASSIUM SERUM 4.2 MEQ/L (3.5-5.1); TOTAL PROTEIN 6.1 GM/DL (6.4-8.2)
[2019-11-24] MEDS ORDERED: SLF 3 ML SYR IV PRN (10:45)
[2019-11-24] MEDS: SLF 3 ML SYR IV SCH ×2 (11:21→20:38)
--- NOTE | 2019-11-24 18:34 | IPNPDOC ---
Text Note Date of Service The patient was seen on 11/24/19. NOTE S: Pt examined at bedside. Is feeling well and has no complaints today besides feeling dizzy and weak on ambulation. Is resting comfortably and otherwise feeling great. No events on telemetry. PE: Vitals: see below General: NAD, A&Ox3, laying comfortably HEENT: NCAT, EOMI, anicteric sclera, MMM CV: RRR, no murmurs or clicks or rub. No edema RESP: CTAB, no w/r/r/ ABD: soft, NT, ND. Benign EXTREMITIES: 2+ radial pulses b/l, able to move all extremities NEURO: no focal deficits or acute changes A/P: This is an 89-year-old female admitted overnight for dizziness and weakness. Found on admission to have hypertensive urgency with BP 220s/100. Improved with 30 MG IV labetalol in the ER and otherwise doing well. Hypertensive urgency Controlled with home meds. Per PCP note, has history of hypertensive crisis S/P 30 MG IV labetalol on admission Hemodynamically stable; no end organ damage noted Continue monitoring PFS to assist, possible help with home med management Dizziness/weakness Likely 2/2 hypertensive urgency Improving with controlled blood pressures Work with PT OT, PFS For the remainder of her chronic medical conditions as listed below, all home meds continued. Otherwise stable. -History of VTE on Eliquis -History of lacunar infarct -Asthma -GERD -Paroxysmal A. fib on Eliquis -Rheumatoid arthritis -Gout -Osteoporosis -DJD -Hypercholesterolemia -Sleep apnea noncompliant with CPAP -Hypothyroidism -Dysthymia DVT ppx: Chronically Eliquis DISPO: Monitor BP, pending PT/OT and PFS. VS,Fishbone, I+O VS, Fishbone, I+O Laboratory Tests 11/24/19 08:31 Vital Signs Date Time Temp Pulse Resp B/P (MAP) Pulse Ox O2 Delivery O2 Flow Rate FiO2 11/24/19 17:01 97.4 58 18 142/68 (92) 96 Room Air I&O- Last 24 Hours up to 6 AM 11/24/19 06:00 Intake Total 350 ml Output Total 0 ml Balance 350 ml GME ATTESTATION GME ATTESTATION My faculty preceptor for this patient encounter was physically present during the encounter and was fully available. All aspects of the patient interview, examination, medical decision making process, and medical care plan development were reviewed and approved by the faculty preceptor. The faculty preceptor is aware and concurs with the plan as stated in the body of this note and will attest to such by his/her cosignature. EDGARD ESPINOSA DO Nov 24, 2019 18:34
--- NOTE | 2019-11-24 22:22 | HPE ---
DATE OF ADMISSION: 11/23/2019 CHIEF COMPLAINT: Headache. HISTORY OF PRESENT ILLNESS: 89-year-old DO NOT RESUSCITATE, DO NOT INTUBATE female. She was in her usual state of health until today around 3:00 p.m. when her daughter noticed that she had conjunctival hemorrhages on the left medial aspect of her eye. The patient had been having a headache since this morning, described it as frontal without any radiation. When she woke up, went to the kitchen, spoke with her daughter and decided to go and take a shower given by her caregiver. While in the shower, she felt dizzy, felt like the room was spinning around her, her left eye was hurting, especially in the left bottom part. Her caregiver gave her some eye drops. Around 3:00 p.m. when her daughter came and noticed the red eye, she then called emergency medical services (EMS). When EMS arrived, the patient was found to have hypertensive urgency with systolic pressure over 200, in the emergency room she was 233/96. As they were putting an IV line in, the patient felt nauseous when the needle struck her arm, otherwise she denied any chest pain, pressure, tightness, shortness of breath, lightheadedness. She did have some dizziness. The patient currently feels better with blood pressure 164/60. She does still have pain on the bottom aspect of her left eye and says that she has always had a problem there and sees a specialist in [place]. She otherwise denies any blurring vision aside from chronic decreased visual acuity in the left eye. Denies any diplopia currently. No changes in gait and ambulating well with some assistance and a walker. She has remained independent in her own apartment with a caregiver and her daughter coming in every evening to provide her meals for dinner. According to the patient, she has not been keeping to a low salt or 2 gram sodium diet. She does try to eat healthy, usually has oatmeal, Spanish muffin in the morning with a processed cheese spread, however. At lunchtime, her caregiver leaves her a sandwich before the caregiver leaves. She does use packaged and processed deli meat at times and canned tuna fish sandwich, but she says that she will also have peanut butter and jelly sandwiches. At dinnertime, since her daughter lives next door in the apartment complex, her daughter usually cooks dinner, often making pot roast, coconut shrimp, chili, ham and split pea soup, which she then brings to her mother for dinner. According to the patient, she has not been on any salt restriction before and has truly not been watching her salt intake. The patient is compliant with her medications. Her daughter sets out her medications for her on a daily basis and she is compliant with taking all of them. She does take Norvasc 10 mg daily, aspirin, atorvastatin, as well as Eliquis for a history of stroke and losartan. PAST MEDICAL HISTORY: 1. Hypertension. 2. Chronic atrial fibrillation on chronic Eliquis. 3. Multiple CVAs times four. 4. Rheumatoid arthritis. 5. Obstructive sleep apnea, compliant with continuous positive airway pressure (CPAP). 6. Osteoporosis. 7. Reflux. 8. Asthma. 9. Hemorrhoids. 10. Hypothyroidism. 11. Gout. 12. Seasonal allergies. 13. Mood disorder. PAST SURGICAL HISTORY: 1. Hysterectomy. 2. Hiatal hernia repair. 3. Tonsillectomy. 4. Right knee replacement. 5. Appendectomy. 6. Cholecystectomy. 7. Bilateral cataract extraction. 8. Hysterectomy. 9. Breast biopsy. SOCIAL HISTORY: The patient lives alone in her apartment. She has a caregiver and also has her daughter that comes and sees her every day and brings her supper. The patient previously worked for the [employer]. Denies any alcohol or active cigarette use. No recreational drug use. Two weeks ago she had white wine and a mixed cocktail, but she does not drink daily. ALLERGIES: The patient is allergic to PENICILLIN, SULFA, CODEINE, HEXACHLOROPHENE, MORPHINE. HOME MEDICATIONS: - albuterol two puffs inhaled every 4 hours as needed - allopurinol 100 mg daily - Norvasc 10 mg daily - Eliquis 5 mg twice a day - aspirin 81 mg daily - atorvastatin 20 mg daily - Calcitriol 0.25 mcg daily - Colace 100 mg twice a day as needed - folic acid 1 mg daily - Lasix 20 mg daily - gabapentin 300 mg cap 600 mg twice a day - Lactulose 15 mL by mouth twice a day - levothyroxine 100 mcg daily - loratadine 10 mg daily - losartan 100 mg daily - meclizine 25 mg every 8 hours as needed - Montelukast 10 mg daily - multivitamin one tablet daily - Prilosec 20 mg daily - potassium chloride 10 mEq twice a day - sertraline 100 mg at night - duloxetine 60 mg daily FAMILY HISTORY: Mother at age 69 from complications of hip fracture and hypertension. Father at age 86 with hypertension. The patient had two half sisters, one that lived in [place] and had heart trouble and at the age of 85. Another sister in her 60s had kidney issues and of complications of that. She had "her kidneys taken out." One half brother age 73 with heart surgery times three. REVIEW OF SYSTEMS: As per history of present illness. 12-point system is otherwise negative. PHYSICAL EXAMINATION: VITAL SIGNS: Temperature 233/96, pulse 51, respiratory rate 18, blood pressure 164/60, 96% on room air. GENERAL: The patient has conjunctival hemorrhage in the left eye in the medial aspect. Extraocular muscles are otherwise intact. She is awake, alert, oriented, answering questions appropriately. Face is symmetric. Tongue is midline. No facial asymmetry. No jugular venous distention (JVD) or thyromegaly. Dry mucous membranes. Poor dentition. LUNGS: Clear to auscultation. No wheezing, rales or rhonchi. Air entry is equal bilaterally. HEART: S1, S2. Sinus bradycardia. Nondisplaced point of maximum impulse (PMI). No murmurs noted. ABDOMEN: Obese, soft, nontender, nondistended. EXTREMITIES: Trace edema. SKIN: Warm, dry, well perfused, pink in color. Electrocardiogram (EKG) unavailable at this time. LABORATORY DATA: White count 6.5, hemoglobin 12, hematocrit 39, platelet count 233, 59% neutrophils. Sodium 140, potassium 4.7, chloride 106, bicarbonate 32, BUN 24, creatinine 0.97, glucose 124, calcium 10.2, total CK 133, MB fraction 2.5, troponin less than 0.02, INR 1.10, PTT of 35, PT 14. IMAGING STUDIES: CT of the head on 11/23/2019 showed no acute or concerning focal intracranial abnormality, remote punctate basal ganglia lacunar infarcts. Chest x-ray on 11/23/2019 showed no acute cardiopulmonary findings. Huge hiatal hernia. MRI of the brain on 11/23/2019 showed no acute or concerning intracranial abnormalities. Symmetric atrophy with similar pattern compared to prior MRI on 11/23/2019. Unremarkable MRA of the [place] and intracranial vertebral based lower system. ASSESSMENT AND PLAN: This is an 89-year-old female with a history of chronic atrial fibrillation on chronic Eliquis, multiple CVAs times four, rheumatoid arthritis, obstructive sleep apnea compliant with continuous positive airway pressure (CPAP), osteoporosis, hypertension, reflux, asthma, hemorrhoids, hypothyroidism, gout, seasonal allergies, mood disorder, who presented to the emergency room with acute onset of headache and found to have hypertensive urgency with presenting blood pressure of 224/91. The patient was emergently given intravenous labetalol 20 mg and resumed on her home dose of medications with repeat blood pressure of 164/60. CURRENT ISSUES: 1. Hypertensive urgency. The patient is compliant with her Norvasc and losartan; however, the patient does not watch her salt intake and usually eats deli meat, ham hock and split pea soup, which her daughter makes. The patient is currently on a 2-gram sodium diet, resumed on her home medications, admitted to telemetry unit. Due to complaints of dizziness, she was ruled out for cerebellar CVA with MRI of the brain, which was negative. CT of the head had shown no intracranial hemorrhage. 2. History of CVA times four. She is resumed back on her home dose of aspirin, Eliquis. Resumed on her home dose of Lipitor. 3. Hypothyroidism. Resumed on home dose of levothyroxine 100 mcg daily. 4. Obstructive sleep apnea. May resume her home setting of CPAP. 5. Chronic atrial fibrillation. Currently rate controlled. Resumed back on her Eliquis. 6. History of asthma. Resumed on as needed inhalers. 7. Depression. On Zoloft. 8. Seasonal allergies. On loratadine. 9. Constipation. On bowel regimen with lactulose. 10. Reflux. On chronic Prilosec. 11. Deep vein thrombosis (DVT) prophylaxis. On chronic Eliquis. CODE STATUS: DO NOT RESUSCITATE, DO NOT INTUBATE. MTDD
[2019-11-25] VITALS (7 sets, daily range): BP systolic 115–160; BP diastolic 50–80
[2019-11-25] MEDS: LEVOTHYROXINE 100MCG TABLET (0.1MG) PO SCH (05:39)
[2019-11-25] MEDS: SLF 3 ML SYR IV SCH ×2 (05:39→16:14)
[2019-11-25] MEDS: ATORVASTATIN 20 MG TAB PO SCH (08:18)
[2019-11-25] MEDS: FUROSEMIDE 20 MG TAB PO SCH (08:19)
[2019-11-25] MEDS: MULTIVITAMINS/MINERALS THERAP 1 TAB PO SCH (08:20)
[2019-11-25] MEDS: LORATADINE 10 MG TAB PO SCH (08:20)
[2019-11-25] MEDS: LOSARTAN 50 MG TAB PO SCH (08:20)
[2019-11-25] MEDS: MONTELUKAST 10 MG TAB PO SCH (08:20)
[2019-11-25] MEDS: DULoxetine 30 MG CAP (CYMBALTA) PO SCH (08:21)
[2019-11-25] MEDS: FOLIC ACID 1 MG TAB PO SCH (08:21)
[2019-11-25] MEDS: OMEPRAZOLE 20 MG CAP PO SCH (08:21)
[2019-11-25] MEDS: CALCITRIOL 0.25 MCG CAP (S0169) PO SCH (08:21)
[2019-11-25] MEDS: allopurinoL 100 MG TAB PO SCH (08:21)
[2019-11-25] MEDS: POTASSIUM CHLORIDE 10 MEQ SR TABLET PO SCH ×2 (08:21→20:50)
[2019-11-25] MEDS: amLODIPine 10 MG TAB PO SCH (08:21)
[2019-11-25] MEDS: APIXABAN 5 MG TAB (ELIQUIS) PO SCH ×2 (08:21→20:49)
[2019-11-25] MEDS: ASPIRIN 81 MG CHEW TABLET PO SCH (08:21)
[2019-11-25] MEDS: LACTULOSE 20 GM/30 ML SYRUP UD PO SCH ×2 (08:22→20:51)
[2019-11-25] MEDS: GABAPENTIN 300 MG CAP PO SCH ×2 (08:22→20:50)
--- NOTE | 2019-11-25 10:43 | IPNPDOC ---
Text Note Date of Service The patient was seen on 11/25/19. NOTE Subjective: Pt seen and examined at bedside. No new medical complaints. No acute overnight events reported. Notes dizziness on standing which she states has been chronic, resolves spontaneously. Objective: Vitals: see below General: NAD, lying comfortably in bed, elderly HEENT: NCAT, EOMI, anicteric sclera, MMM CV: RRR, no murmurs or clicks or rub. No edema RESP: CTAB, no w/r/r/ ABD: soft, NT, ND. +BS EXTREMITIES: no edema NEURO: no focal deficits or acute changes A/P: 89-year-old female admitted overnight for dizziness and weakness. Found on admission to have hypertensive urgency with BP 220s/100. Improved with 30 MG IV labetalol in the ER and otherwise doing well. #Hypertensive urgency Controlled with home meds. Per PCP note, has history of hypertensive crisis S/P 30 MG IV labetalol on admission Hemodynamically stable; no end organ damage noted Continue monitoring PFS to assist, possible help with home med management #Dizziness/weakness Likely 2/2 hypertensive urgency Improving with controlled blood pressures Work with PT OT, PFS For the remainder of her chronic medical conditions as listed below, all home meds continued. Otherwise stable. - VTE on Eliquis -History of lacunar infarct -Asthma -GERD -Paroxysmal A. fib on Eliquis as above for VTE -Rheumatoid arthritis -Gout -Osteoporosis -DJD -Hypercholesterolemia -Sleep apnea noncompliant with CPAP -Hypothyroidism -Dysthymia DVT ppx: Chronically Eliquis DISPO: Monitor BP, pending PT/OT and PFS. Transfer to floor VS,[place], I+O VS, [place], I+O Vital Signs Date Time Temp Pulse Resp B/P (MAP) Pulse Ox O2 Delivery O2 Flow Rate FiO2 11/25/19 08:21 59 11/25/19 08:20 144/60 11/25/19 08:00 97.3 18 94 Room Air I&O- Last 24 Hours up to 6 AM 11/25/19 06:00 Intake Total 720 ml Output Total 800 ml Balance -80 ml TOMMIE LEE MD Nov 25, 2019 10:43
--- NOTE | 2019-11-25 20:36 | ECGEPIP ---
[facility] - ED Test Date: 2019-11-23 Pat Name: PADMAJA ROD Department: Room: - Gender: Female Customer Service Security Officer: sushma : 1930 Requested By: HELLEN Schultz Order Number: [id number] Reading MD: Meg Gupta Measurements Intervals [place] Rate: 59 P: 42 AK: 166 QRS: -18 QRSD: 106 T: 32 QT: 370 QTc: 369 Interpretive Statements SINUS BRADYCARDIA NONSPECIFIC T-WAVE ABNORMALITY SIMILAR 04/23/19 Electronically Signed on 11-25-2019 20:35:57 EST by Meg Gupta
[2019-11-25] MEDS: SERTRALINE 100 MG TAB PO SCH (20:49)
[2019-11-26] VITALS: BP 160/60
[2019-11-26 04:00] VITALS: BP_SYST 120; BP_SYST 140; BP_DIAS 60; BP_DIAS 90
[2019-11-26] MEDS: LEVOTHYROXINE 100MCG TABLET (0.1MG) PO SCH (05:28)
[2019-11-26 08:00] VITALS: BP 139/65
[2019-11-26] MEDS: LACTULOSE 20 GM/30 ML SYRUP UD PO SCH (08:50)
[2019-11-26] MEDS: LOSARTAN 50 MG TAB PO SCH (08:51)
[2019-11-26] MEDS: APIXABAN 5 MG TAB (ELIQUIS) PO SCH (08:51)
[2019-11-26] MEDS: CALCITRIOL 0.25 MCG CAP (S0169) PO SCH (08:51)
[2019-11-26] MEDS: ASPIRIN 81 MG CHEW TABLET PO SCH (08:51)
[2019-11-26] MEDS: FUROSEMIDE 20 MG TAB PO SCH (08:51)
[2019-11-26] MEDS: OMEPRAZOLE 20 MG CAP PO SCH (08:51)
[2019-11-26] MEDS: GABAPENTIN 300 MG CAP PO SCH (08:51)
[2019-11-26 08:52] VITALS: BP 139/65
[2019-11-26] MEDS: MULTIVITAMINS/MINERALS THERAP 1 TAB PO SCH (08:52)
[2019-11-26] MEDS: DULoxetine 30 MG CAP (CYMBALTA) PO SCH (08:52)
[2019-11-26] MEDS: ATORVASTATIN 20 MG TAB PO SCH (08:52)
[2019-11-26] MEDS: allopurinoL 100 MG TAB PO SCH (08:52)
[2019-11-26] MEDS: POTASSIUM CHLORIDE 10 MEQ SR TABLET PO SCH (08:52)
[2019-11-26] MEDS: LORATADINE 10 MG TAB PO SCH (08:52)
[2019-11-26] MEDS: MONTELUKAST 10 MG TAB PO SCH (08:52)
[2019-11-26] MEDS: FOLIC ACID 1 MG TAB PO SCH (08:52)
[2019-11-26] MEDS: amLODIPine 10 MG TAB PO SCH (08:52)
--- NOTE | 2019-11-26 13:05 | DS.PDOC ---
Discharge Summary General Date of Admission Nov 23, 2019 at 19:12 Date of Discharge 11/26/2019 Primary Care Physician: Charli Steiner Attending Physician: TOMMIE LEE MD Discharge Summary PROCEDURES PERFORMED DURING STAY: None. DISCHARGE DIAGNOSES: 1. Hypertensive urgency. -History of VTE on Eliquis -History of lacunar infarct -Asthma -GERD -Paroxysmal A. fib on Eliquis -Rheumatoid arthritis -Gout -Osteoporosis -DJD -Hypercholesterolemia -Sleep apnea noncompliant with CPAP -Hypothyroidism -Dysthymia HISTORY OF PRESENT ILLNESS: This 89-year-old female brought in by her daughter after she noticed her mom having conjunctival hemorrhage in the left medial eye and headache since morning. Patient also had dizziness as if the room was spinning and pain in left eye and associated nausea. She was found by EMS to have systolic greater than 200, and in the ER 233/96. She had no other complaints. Per her outpatient records, she has a noted history of hypertensive crisis. HOSPITAL COURSE: Was found that she does not have any salt restriction at home and is otherwise compliant with her medications. Her blood pressure improved after total 30 mg IV labetalol. Imaging was negative for an acute CVA and no end organ damage was noted. All her home medications were resumed. She was monitored on telemetry without any acute changes. Her symptoms improved with resolution of her hypertensive urgency or she worked with PT and OT and was cleared for discharge home. She does have home services 3 days a week and her daughter providing additional care at home. occasions during her stay. She was discharged home to closely follow-up with her primary physician and to adhere to 2 g salt restriction diet and stick to all of her medications. DISCHARGE MEDICATIONS: Please see below. ALLERGIES: Please see below. PHYSICAL EXAMINATION ON DISCHARGE: VITAL SIGNS: Please see below. Vitals: see below General: NAD, A&Ox3, laying comfortably HEENT: NCAT, EOMI, anicteric sclera, MMM, conjunctival hemorrhage left medial eye CV: RRR, no murmurs or clicks or rub. No edema RESP: CTAB, no w/r/r/ ABD: soft, NT, ND. Benign EXTREMITIES: 2+ radial pulses b/l, able to move all extremities NEURO: no focal deficits or acute changes LABORATORY DATA: Please see below. IMAGING: * 11/23/[address]:1. No acute or concerning focal intracranial abnormality. 2. Remote punctate basal ganglia lacunar infarcts * 11/23/2019 CXR: No acute cardiopulmonary findings. Huge hiatal hernia. * 11/23/2019 brain MRI: No acute or concerning intracranial abnormality. Symmetric atrophy, with similar pattern compared to the prior MRI * 11/23/2019 brain MRA: Unremarkable MR angiogram of the [place] of [place] and intracranial vertebrobasilar system. PROGNOSIS: fair ACTIVITY: As tolerated. DIET: 2g sodium DISPOSITION: home DISCHARGE INSTRUCTIONS: 1. Follow-up with PCP within a week 2. Return to ER for emergency DISCHARGE CONDITION: Stable. TIME SPENT ON DISCHARGE: Greater than 35 minutes. Vital Signs/I&Os Vital Signs Date Time Temp Pulse Resp B/P (MAP) Pulse Ox O2 Delivery O2 Flow Rate FiO2 11/26/19 08:52 52 139/65 11/26/19 08:00 98.2 18 93 Room Air I&O- Last 24 Hours up to 6 AM 11/26/19 06:00 Intake Total 1430 ml Output Total 1050 ml Balance 380 ml Discharge Medications Scheduled Allopurinol (Allopurinol) 100 Mg Tab, 100 MG PO DAILY, (Reported) Amlodipine Besylate (Amlodipine Besylate) 10 Mg Tab, 10 MG PO DAILY, (Reported) Apixaban (Eliquis) 5 Mg Tab, 5 MG PO BID, (Reported) Aspirin (Aspirin) 81 Mg Chw, 81 MG PO DAILY, (Reported) Atorvastatin Calcium (Atorvastatin Calcium) 20 Mg Tab, 20 MG PO DAILY, (Reported) Calcitriol (Calcitriol) 0.25 Mcg Cap, 0.25 MCG PO DAILY, (Reported) Duloxetine HCl (Duloxetine HCl) 60 Mg Capsule.dr, 60 MG PO DAILY, (Reported) Folic Acid (Folic Acid) 1 Mg Tab, 1 MG PO DAILY, (Reported) Furosemide (Furosemide) 20 Mg Tab, 20 MG PO DAILY, (Reported) Gabapentin (Neurontin) 300 Mg Cap, 600 MG PO BID, (Reported) Lactulose (Lactulose) 10 Gm/15 Ml Solution, 15 ML PO BID, (Reported) Levothyroxine Sodium (Levothyroxine Sodium) 100 Mcg Tab, 100 MCG PO DAILY, (Reported) Loratadine (Loratadine) 10 Mg Tab, 10 MG PO DAILY, (Reported) Losartan Potassium (Cozaar) 100 Mg Tab, 100 MG PO DAILY, (Reported) Montelukast Sodium (Montelukast Sodium) 10 Mg Tab, 10 MG PO DAILY, (Reported) Multivitamins (Thera M Plus Tablet) 1 Tab Tab, 1 TAB PO DAILY, (Reported) Omeprazole (Omeprazole) 20 Mg Cap, 20 MG PO DAILY, (Reported) Potassium Chloride (Klor-Con M10) 10 Meq Tabcr, 10 MEQ PO BID, (Reported) Sertraline HCl (Sertraline HCl) 100 Mg Tab, 100 MG PO QHS, (Reported) Scheduled PRN Albuterol Sulfate (Proair Hfa) 8.5 Gm Hfa.aer.ad, 2 PUFF INH Q4H PRN for WHEEZING, (Reported) Albuterol Sulfate (Ventolin Hfa) 18 Gm Hfa.aer.ad, 2 PUFF INH BID PRN for wheezing, (Reported) Docusate Sodium (Colace) 100 Mg Cap, 100 MG PO BID PRN for CONSTIPATION, (Reported) Meclizine HCl (Meclizine HCl) 25 Mg Tablet, 25 MG PO Q8H PRN for DIZZINESS, (Reported) Allergies Coded Allergies: Penicillins (Verified Allergy, Intermediate, HIVES, 01/13/19) Sulfa (Sulfonamide Antibiotics) (Verified Allergy, Intermediate, HIVES, 01/13/19) codeine (Verified Allergy, Intermediate, HIVES, 01/13/19) hexachlorophene (Verified Allergy, Unknown, 01/13/19) morphine (Verified Adverse Reaction, Mild, HALLUCINATIONS, 01/13/19) GME ATTESTATION GME ATTESTATION My faculty preceptor for this patient encounter was physically present during the encounter and was fully available. All aspects of the patient interview, examination, medical decision making process, and medical care plan development were reviewed and approved by the faculty preceptor. The faculty preceptor is aware and concurs with the plan as stated in the body of this note and will attest to such by his/her cosignature. EDGARD ESPINOSA DO Nov 26, 2019 13:05
== END 2019-11-26 13:58 | disposition home or self-care (01) | DRG 305 ==
LOC: M ED 16:58 → M ED INP 19:12 → M PCU 21:00
PROVIDERS: ADMIT General Practice; ATTEND Internal Medicine
DX: I16.0 Hypertensive urgency (principal); I48.0 Paroxysmal atrial fibrillation; J45.909 Unspecified asthma, uncomplicated; Z79.01 Long term (current) use of anticoagulants; Z86.73 Personal history of transient ischemic attack (TIA), and cerebral infarction without residual deficits; M10.9 Gout, unspecified; M81.0 Age-related osteoporosis without current pathological fracture; E78.00 Pure hypercholesterolemia, unspecified; Z91.19 Patient's noncompliance with other medical treatment and regimen; E03.9 Hypothyroidism, unspecified; M06.9 Rheumatoid arthritis, unspecified; K21.9 Gastro-esophageal reflux disease without esophagitis; Z79.899 Other long term (current) drug therapy; Z79.82 Long term (current) use of aspirin; Z88.0 Allergy status to penicillin; Z88.2 Allergy status to sulfonamides; Z88.5 Allergy status to narcotic agent; Z88.8 Allergy status to other drugs, medicaments and biological substances; Z66 Do not resuscitate; H11.32 Conjunctival hemorrhage, left eye; K64.8 Other hemorrhoids; Z96.651 Presence of right artificial knee joint; Z98.41 Cataract extraction status, right eye; Z98.42 Cataract extraction status, left eye; F32.9 Major depressive disorder, single episode, unspecified; K59.00 Constipation, unspecified

== ENCOUNTER 2019-12-05 14:18 | Emergency (ER) | payer MEDICARE, MEDICAID ==
[~2019-12-05] VITALS: Ht 162.6 cm; Wt 86.8 kg
[~2019-12-05 14:18] MED LIST changes: +DULO60CA35 PO; +LACT10SO29 PO; +MECL-86 PO; +PROAAER10 INH
--- NOTE | 2019-12-05 15:31 | REP ---
CHEST, SINGLE VIEW: Comparison 11/23/2019. Single view of the chest is performed. There is no acute infiltrate. Heart is not significantly enlarged. There is a large hiatal hernia. There is calcification and tortuosity of the thoracic aorta. IMPRESSION: Large hiatal hernia. No acute infiltrate. Electronically Signed by Mushtaq Wills MD 12/05/2019 04:15 P
[2019-12-05 15:41] LABS: BASO % 0.5 % (0.0-1.0); EOS # 0.4 10^3/uL (0.0-0.5); EOS % 6.3 % (0.0-3.0); HEMATOCRIT 35.4 % (36.0-47.0); HEMOGLOBIN 11.3 g/dl (12.0-15.5); LYMPH # 1.6 10^3/uL (1.5-5.0); LYMPH % 26.5 % (24.0-44.0); MEAN CORPUSCULAR HEMOGLOBIN 31.2 pg (27.0-33.0); MEAN CORPUSCULAR HGB CONC 31.9 g/dl (32.0-36.5); MEAN CORPUSCULAR VOLUME 97.8 fl (80.0-96.0); MONO # 0.4 10^3/uL (0.0-0.8); MONO % 6.8 % (0.0-5.0); NEUTROPHILS # 3.6 10^3/uL (1.5-8.5); NEUTROPHILS % 59.7 % (36.0-66.0); PLATELET COUNT, AUTOMATED 195 10^3/uL (150-450); RED BLOOD COUNT 3.62 10^6/uL (4.00-5.40)
[2019-12-05 15:52] LABS: INR 1.32; PROTHROMBIN TIME 16.1 SECONDS (11.8-14.0)
[2019-12-05 15:53] LABS: PARTIAL THROMBOPLASTIN TIME 38.4 SECONDS (25.0-38.4)
[2019-12-05 16:09] LABS: INFLUENZA A AMPLIFICATION NEGATIVE (NEGATIVE); INFLUENZA B AMPLIFICATION NEGATIVE (NEGATIVE)
[2019-12-05 16:20] LABS: ALBUMIN 3.3 GM/DL (3.2-5.2); ALT/SGPT 20 U/L (12-78); BILIRUBIN,DIRECT 0.1 MG/DL (0.0-0.2); BILIRUBIN,TOTAL 0.3 MG/DL (0.2-1.0); BLOOD UREA NITROGEN 25 MG/DL (7-18); CALCIUM LEVEL 9.8 MG/DL (8.8-10.2); CARBON DIOXIDE LEVEL 29 MEQ/L (21-32); CHLORIDE LEVEL 107 MEQ/L (98-107); CK-MB VALUE MASS 1.4 NG/ML (<3.6); CPK CREATINE PHOSPHOKINASE 49 U/L (26-192); CREATININE FOR GFR 0.93 MG/DL (0.55-1.30); GLOMERULAR FILTRATION RATE > 60.0 (>32); GLUCOSE, FASTING 107 MG/DL (70-100); LIPASE 127 U/L (73-393); MB/CK RELATIVE INDEX 2.86 (< OR =4); POTASSIUM SERUM 4.2 MEQ/L (3.5-5.1); SODIUM LEVEL 141 MEQ/L (136-145); TOTAL PROTEIN 6.4 GM/DL (6.4-8.2); TROPONIN I < 0.02 NG/ML (< 0.10)
[2019-12-05] MEDS ORDERED: ISOVUE-370 76% 100ML VIAL (Q9967) As Ordered ONE (16:59)
[2019-12-05] MEDS ORDERED: GI COCKTAIL 50ML BTL(HYOSCYAMINE/MAALOX/LIDOCAINE VISCOUS)(1:3:1) PO ONE (17:00)
--- NOTE | 2019-12-05 17:53 | REPVR ---
PROCEDURE INFORMATION: Exam: CT Angiography Chest With Contrast Exam date and time: 12/05/2019 5:12 PM Age: 89 years old Clinical indication: Chest pain; Additional info: Chest pain/ presyncope TECHNIQUE: Imaging protocol: Computed tomographic angiography of the chest with intravenous contrast. 3D rendering: MIP and/or 3D reconstructed images were created by the technologist. Radiation optimization: All CT scans at this facility use at least one of these dose optimization techniques: automated exposure control; mA and/or kV adjustment per patient size (includes targeted exams where dose is matched to clinical indication); or iterative reconstruction. Contrast material: ISO 370; Contrast volume: 75 ml; Contrast route: IV; COMPARISON: CR PORTABLE CHEST X-RAY 12/05/2019 3:04 PM FINDINGS: Pulmonary arteries: There is enlargement of the central pulmonary arteries, findings which can be associated with pulmonary arterial hypertension which should be correlated clinically. Aorta: The aorta demonstrates mild atherosclerotic calcification. There is no aortic dissection or aneurysm. Lungs: Ground-glass opacity right apex measures 2.3 x 1.1 cm. Atelectasis demonstrated in the right lower lobe adjacent to the hiatal hernia and at both lung bases. 2 mm peripheral subpleural nodule in the left upper lobe most likely postinflammatory. No follow-up suggested. Pleural space: Unremarkable. No pneumothorax. No pleural effusion. Heart: There is moderate atherosclerotic calcification of the coronary arteries. Mediastinum: Large right paraesophageal hiatal hernia contains much of the stomach. Lymph nodes: Unremarkable. No enlarged lymph nodes. Bones/joints: Arthropathic changes in the right glenohumeral joint. Osteoporosis. The spine demonstrates moderate degenerative changes. Soft tissues: Unremarkable. IMPRESSION: 1. Ground-glass opacity right apex measures 2.3 x [address] at 6-12 months to confirm persistence of the nodule, then CT at 3 and at 5 years. (Sha et al., Fleischner Society, 2017) 2. 2 mm peripheral subpleural nodule in the left upper lobe most likely postinflammatory. No follow-up suggested. 3. There is enlargement of the central pulmonary arteries, findings which can be associated with pulmonary arterial hypertension which should be correlated clinically. 4. There is no aortic dissection or aneurysm. Electronically signed by: Shaheed Early On 12/05/2019 17:53:08 PM
[2019-12-05 18:03] VITALS: BP 148/69
--- NOTE | 2019-12-06 07:00 | ECGEPIP ---
[facility] - ED Test Date: 2019-12-05 Pat Name: PADMAJA ROD Department: Room: - Gender: Female Tour Agent: rashimaira : 1930 Requested By: SORAYA Caal Order Number: [id number] Reading MD: King Bernstein Measurements Intervals [place] Rate: 56 P: 62 NE: 178 QRS: -24 QRSD: 99 T: 28 QT: 419 QTc: 406 Interpretive Statements SINUS BRADYCARDIA POOR R WAVE PROGRESSION SIMILAR TO 11/23/19 Electronically Signed on 12-06-2019 6:59:55 EST by King Bernstein
--- NOTE | 2019-12-06 11:45 | ED PDOC ---
Post-Departure Follow-Up dr medina faxed formal report of cta chest for fu Feliz De Dios MD Dec 06, 2019 11:45
== END 2019-12-05 18:17 | disposition home or self-care (01) ==
LOC: M ED 14:18
DX: R07.89 Other chest pain (principal); R91.1 Solitary pulmonary nodule; R00.1 Bradycardia, unspecified; K44.9 Diaphragmatic hernia without obstruction or gangrene; I10 Essential (primary) hypertension; J45.909 Unspecified asthma, uncomplicated; K21.9 Gastro-esophageal reflux disease without esophagitis; M06.9 Rheumatoid arthritis, unspecified; E03.9 Hypothyroidism, unspecified; G47.33 Obstructive sleep apnea (adult) (pediatric); Z86.73 Personal history of transient ischemic attack (TIA), and cerebral infarction without residual deficits; Z79.82 Long term (current) use of aspirin; Z79.01 Long term (current) use of anticoagulants; Z79.899 Other long term (current) drug therapy; Z88.0 Allergy status to penicillin; Z88.2 Allergy status to sulfonamides; Z88.5 Allergy status to narcotic agent; Z91.89 Other specified personal risk factors, not elsewhere classified
CPT/HCPCS: 36415; 71045; 71275; 80048; 80076; 82550; 82553; 83690; 84484; 85025; 85610; 85730; 87040; 87502; 93005; 93041; 94760; 99285; Q9967

== ENCOUNTER → 2020-03-11 | Outpatient (REF) | payer MEDICARE, MEDICAID ==
[~2020-03-11] MED LIST changes: -LACT10SO29 PO; +LACT20EL PO
[2020-03-11 15:16] LABS: HEMATOCRIT 37.9 % (36.0-47.0); HEMOGLOBIN 11.9 g/dl (12.0-15.5); MEAN CORPUSCULAR HEMOGLOBIN 30.4 pg (27.0-33.0); MEAN CORPUSCULAR HGB CONC 31.4 g/dl (32.0-36.5); MEAN CORPUSCULAR VOLUME 96.7 fl (80.0-96.0); PLATELET COUNT, AUTOMATED 238 10^3/uL (150-450); RED BLOOD COUNT 3.92 10^6/uL (4.00-5.40)
[2020-03-11 15:40] LABS: ALBUMIN 3.6 GM/DL (3.2-5.2); BILIRUBIN,TOTAL 0.4 MG/DL (0.2-1.0); CALCIUM LEVEL 9.5 MG/DL (8.8-10.2); CREATININE FOR GFR 1.06 MG/DL (0.55-1.30); POTASSIUM SERUM 5.1 MEQ/L (3.5-5.1); TOTAL PROTEIN 6.9 GM/DL (6.4-8.2)
[2020-03-11 15:50] LABS: PTH INTACT 155.2 PG/ML (18.5-88.0)
== END ==
LOC: M PLALAB 13:34
PROVIDERS: ATTEND Internal Medicine
DX: I12.9 Hypertensive chronic kidney disease with stage 1 through stage 4 chronic kidney disease, or unspecified chronic kidney disease (principal); N18.3 Chronic kidney disease, stage 3 (moderate); G47.30 Sleep apnea, unspecified

== ENCOUNTER → 2020-05-08 | Outpatient (REF) | payer MEDICARE, OTHER ==
[~2020-05-08] MED LIST changes: -AMLO10TA5 PO; +AMLO1TAB24 PO; +AMLO1TAB25 PO; -AMLO5TAB6 PO; +COMBAER6 INH; +FERR325T18 PO; +OMEP-218 PO
== END ==
LOC: M LAB REF 11:09
PROVIDERS: ATTEND Physician Assistant
DX: N39.0 Urinary tract infection, site not specified (principal)

== ENCOUNTER 2020-05-20 14:34 | Emergency (ER) | payer MEDICARE, OTHER ==
[~2020-05-20 14:34] MED LIST changes: -COMBAER6 INH; -FERR325T18 PO; -OMEP-218 PO
[2020-05-20] MEDS ORDERED: methylPREDNISolone 125MG 2ML VIAL ONE (15:42)
--- NOTE | 2020-06-13 14:00 | ECGEPIP ---
[facility] - ED Test Date: 2020-05-20 Pat Name: PADMAJA ROD Department: Room: - Gender: Female Roof Shingler: SALOME : 1930 Requested By: Feliz Escalera Order Number: [id number] Reading MD: Meg Gupta Measurements Intervals [place] Rate: 58 P: 30 VT: 166 QRS: -19 QRSD: 98 T: 18 QT: 422 QTc: 417 Interpretive Statements SINUS BRADYCARDIA BORDERLINE ECG SEE SCANNED DOWNTIME REPORT
[2020-06-17 14:21] LABS: BASO % 0.6 % (0.0-1.0); EOS # 0.3 10^3/uL (0.0-0.5); EOS % 5.3 % (0.0-3.0); HEMATOCRIT 37.4 % (36.0-47.0); HEMOGLOBIN 12.3 g/dl (12.0-15.5); LYMPH # 1.4 10^3/uL (1.5-5.0); LYMPH % 27.4 % (24.0-44.0); MEAN CORPUSCULAR HEMOGLOBIN 31.5 pg (27.0-33.0); MEAN CORPUSCULAR HGB CONC 32.9 g/dl (32.0-36.5); MEAN CORPUSCULAR VOLUME 95.7 fl (80.0-96.0); MONO # 0.4 10^3/uL (0.0-0.8); MONO % 8.2 % (0.0-5.0); NEUTROPHILS # 3.1 10^3/uL (1.5-8.5); NEUTROPHILS % 58.3 % (36.0-66.0); PLATELET COUNT, AUTOMATED 237 10^3/uL (150-450); RED BLOOD COUNT 3.91 10^6/uL (4.00-5.40); WHITE BLOOD COUNT 5.3 10^3/uL (4.0-10.0)
[2020-06-20 11:40] LABS: BLOOD UREA NITROGEN 17 MG/DL (7-18); CREATININE FOR GFR 0.94 MG/DL (0.55-1.30); GLOMERULAR FILTRATION RATE 59.7 (>32); GLUCOSE, FASTING 90 MG/DL (70-100)
[2020-06-20 11:41] LABS: ALBUMIN 3.5 GM/DL (3.2-5.2); ALT/SGPT 21 IU/L (0-32); BILIRUBIN,TOTAL 0.3 MG/DL (0.2-1.0); CARBON DIOXIDE LEVEL 29 mmol/L (20-29); CHLORIDE LEVEL 105 MEQ/L (98-107); CK-MB VALUE MASS 1.5 NG/ML (<3.6); CPK CREATINE PHOSPHOKINASE 58 U/L (26-192); MB/CK RELATIVE INDEX 2.58 (< OR =4); POTASSIUM SERUM 4.1 MEQ/L (3.5-5.1); SODIUM LEVEL 138 MEQ/L (136-145); TOTAL PROTEIN 7.5 GM/DL (6.4-8.2)
[2020-06-20 11:42] LABS: LIPASE 123 U/L (73-393); NT-PRO BNP 307 PG/ML (<450); TROPONIN I < 0.02 NG/ML (< 0.10)
== END 2020-05-20 21:15 | disposition home or self-care (01) ==
LOC: M ED 14:34
DX: J45.909 Unspecified asthma, uncomplicated (principal); I10 Essential (primary) hypertension; K44.9 Diaphragmatic hernia without obstruction or gangrene; I28.8 Other diseases of pulmonary vessels; R91.8 Other nonspecific abnormal finding of lung field; R93.1 Abnormal findings on diagnostic imaging of heart and coronary circulation; R00.1 Bradycardia, unspecified; Z79.899 Other long term (current) drug therapy; Z88.0 Allergy status to penicillin; Z88.2 Allergy status to sulfonamides; Z88.5 Allergy status to narcotic agent
CPT/HCPCS: 71045; 74176; 80048; 80076; 81001; 82550; 82553; 83605; 83690; 83880; 84484; 85025; 87040; 87486; 87581; 87633; 87798; 93005; 96374; 99285; J2930

== ENCOUNTER → 2020-06-04 | Outpatient (CLI) | payer MEDICARE, OTHER ==
[~2020-06-04] MED LIST changes: +COMBAER6 INH; +FERR325T18 PO; +OMEP-218 PO
[2020-06-06 12:11] LABS: ANTINUCLEAR ANTIBODIES DIRECT Negative (Negative)
== END ==
LOC: M PLALAB 15:12
PROVIDERS: ATTEND Psychiatry & Neurology Neurology
DX: R51 Headache (principal)

== ENCOUNTER → 2020-06-12 | Outpatient (CLI) | payer MEDICARE, MEDICAID ==
--- NOTE | 2020-07-03 11:52 | REP ---
BILATERAL MAMMOGRAM WITH 3D TOMOSYNTHESIS AND LEFT BREAST ULTRASOUND CLINICAL HISTORY: Left breast pain near the nipple. No family history of breast cancer. COMPARISON: None. TECHNIQUE: MLO and CC views of both breasts performed with 3D tomosynthesis. FINDINGS: Mild symmetrical fibroglandular tissue is present. Volpara breast density B. There is no evidence of mass or architectural distortion. No clustered microcalcifications are seen. There are vascular calcifications bilaterally. Real-time sonographic evaluation of the left breast is performed in the region of 1 to 4 o'clock near the nipple where the patient complains of pain. No cystic or solid nodule is seen in that region. IMPRESSION: ACR 1 negative. No mass or clustered microcalcifications. There is no mammographic evidence of a mass mammographically or sonographically at the site of reported pain 1 to 4 o'clock left breast. Clinical correlation and follow-up recommended. Recommend follow-up mammogram in one year. This mammogram was interpreted with the aid of an FDA approved computer-aided detection system. Last clinical breast exam is reportedly June 2020. Patient letter 2. MTDD
== END ==
LOC: M WHC 13:01
PROVIDERS: ATTEND Internal Medicine
DX: N64.4 Mastodynia (principal); Z80.3 Family history of malignant neoplasm of breast
CPT/HCPCS: 76642; 77066; G0279

== ENCOUNTER 2020-06-20 11:58 | Inpatient (IN) | payer MEDICARE, MEDICAID ==
[~2020-06-20] VITALS: Ht 160 cm; Wt 88.3 kg
[~2020-06-20 11:58] MED LIST changes: -COMBAER6 INH; -FERR325T18 PO; -OMEP-218 PO
[2020-06-20] MEDS ORDERED: LIDOCAINE 2% 5ML JELLY UROJET TOP ONE (12:15)
[2020-06-20] MEDS ORDERED: FERR325T18 PO (12:22)
--- NOTE | 2020-06-20 12:37 | REPVR ---
PROCEDURE INFORMATION: Exam: CT Head Without Contrast Exam date and time: 06/20/2020 12:10 PM Age: 89 years old Clinical indication: Altered mental status/memory loss TECHNIQUE: Imaging protocol: Computed tomography of the head without contrast. Radiation optimization: All CT scans at this facility use at least one of these dose optimization techniques: automated exposure control; mA and/or kV adjustment per patient size (includes targeted exams where dose is matched to clinical indication); or iterative reconstruction. COMPARISON: CT Head without contrast 11/23/2019 5:18 PM FINDINGS: Brain: There is no acute intracranial hemorrhage or mass effect. Moderate diffuse volume loss is within the range of normal for patient age. There are small vessel ischemic changes within the periventricular and subcortical white matter, but the normal ricks-white matter delineation is maintained. 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 Ventricles: No ventriculomegaly. Bones/joints: Unremarkable. No acute fracture. Paranasal sinuses: Visualized sinuses are unremarkable. No fluid levels. Mastoid air cells: Visualized mastoid air cells are well aerated. Soft tissues: Unremarkable. IMPRESSION: No acute intracranial hemorrhage or edema. Electronically signed by: Tisha Torres On 06/20/2020 12:37:08 PM
[2020-06-20] MEDS ORDERED: COMBAER6 INH (13:26)
[2020-06-20 13:32] LABS: BASO % 0.5 % (0.0-1.0); EOS # 0.6 10^3/uL (0.0-0.5); EOS % 9.6 % (0.0-3.0); HEMATOCRIT 38.3 % (36.0-47.0); HEMOGLOBIN 12.4 g/dl (12.0-15.5); LYMPH # 1.4 10^3/uL (1.5-5.0); LYMPH % 24.2 % (24.0-44.0); MEAN CORPUSCULAR HEMOGLOBIN 31.2 pg (27.0-33.0); MEAN CORPUSCULAR HGB CONC 32.4 g/dl (32.0-36.5); MEAN CORPUSCULAR VOLUME 96.5 fl (80.0-96.0); MONO # 0.5 10^3/uL (0.0-0.8); MONO % 9.4 % (0.0-5.0); NEUTROPHILS # 3.2 10^3/uL (1.5-8.5); NEUTROPHILS % 55.8 % (36.0-66.0); PLATELET COUNT, AUTOMATED 245 10^3/uL (150-450); RED BLOOD COUNT 3.97 10^6/uL (4.00-5.40); WHITE BLOOD COUNT 5.7 10^3/uL (4.0-10.0)
[2020-06-20 13:53] LABS: ALBUMIN 3.2 GM/DL (3.2-5.2); ALT/SGPT 18 U/L (12-78); BILIRUBIN,DIRECT 0.1 MG/DL (0.0-0.2); BILIRUBIN,TOTAL 0.3 MG/DL (0.2-1.0); BLOOD UREA NITROGEN 20 MG/DL (7-18); CALCIUM LEVEL 9.8 MG/DL (8.8-10.2); CARBON DIOXIDE LEVEL 29 MEQ/L (21-32); CHLORIDE LEVEL 107 MEQ/L (98-107); CK-MB VALUE MASS 1.8 NG/ML (<3.6); CPK CREATINE PHOSPHOKINASE 50 U/L (26-192); CREATININE FOR GFR 0.94 MG/DL (0.55-1.30); GLOMERULAR FILTRATION RATE 59.7 (>32); GLUCOSE, FASTING 106 MG/DL (70-100); POTASSIUM SERUM 4.1 MEQ/L (3.5-5.1); SODIUM LEVEL 141 MEQ/L (136-145); TOTAL PROTEIN 6.3 GM/DL (6.4-8.2); TROPONIN I < 0.02 NG/ML (< 0.10)
--- NOTE | 2020-06-20 14:56 | REPVR ---
PROCEDURE INFORMATION: Exam: XR Chest, 1 View Exam date and time: 06/20/2020 2:07 PM Age: 89 years old Clinical indication: Other: Altered mental status TECHNIQUE: Imaging protocol: XR of the chest Views: 1 view. COMPARISON: CR PORTABLE CHEST X-RAY 12/05/2019 3:04 PM FINDINGS: Pleural space: There is no evidence of pneumothorax or pleural effusion.. Heart/Mediastinum: Heart is normal in size. There is a very large hiatal hernia with most of the stomach above the diaphragm posterior to the cardiac silhouette. There is mild atelectasis at the medial right lung base with the lungs otherwise clear Vasculature: The aorta is tortuous and sclerotic. Bones/joints: Osteophyte formation and degenerative changes. IMPRESSION: Atelectasis medial right lung base and very large hiatal hernia. Electronically signed by: Asaf Cheng On 06/20/2020 14:55:50 PM
[2020-06-20] MEDS ORDERED: ALBUTEROL 90 MCG/ACT 8GM HFA INHALER INH PRN (15:15)
[2020-06-20 18:00] VITALS: BP 188/88
[2020-06-20] MEDS: COMBIVENT RESPIMAT 100-20MCG INHALER 4GM INH SCH (18:09)
[2020-06-20] MEDS ORDERED: amLODIPine 5 MG TAB PO ONE (19:00)
[2020-06-20] MEDS: APIXABAN 5 MG TAB (ELIQUIS) PO SCH (19:51)
[2020-06-20] MEDS: GABAPENTIN 300 MG CAP PO SCH (19:51)
[2020-06-20] MEDS: ATORVASTATIN 20 MG TAB PO SCH (19:51)
[2020-06-20 20:00] VITALS: BP 138/72
[2020-06-21] VITALS: BP 138/60
[2020-06-21] MEDS: ACETAMINOPHEN TAB 650MG DOSE (2X325MG) PO PRN ×3 (00:17→21:16)
[2020-06-21 04:00] VITALS: BP 132/58
[2020-06-21] MEDS: LEVOTHYROXINE 100MCG TABLET (0.1MG) PO SCH (05:39)
[2020-06-21 06:12] LABS: BASO % 0.7 % (0.0-1.0); EOS # 0.5 10^3/uL (0.0-0.5); EOS % 7.7 % (0.0-3.0); HEMATOCRIT 36.3 % (36.0-47.0); LYMPH # 1.7 10^3/uL (1.5-5.0); LYMPH % 27.1 % (24.0-44.0); MEAN CORPUSCULAR HEMOGLOBIN 31.6 pg (27.0-33.0); MEAN CORPUSCULAR HGB CONC 33.1 g/dl (32.0-36.5); MEAN CORPUSCULAR VOLUME 95.5 fl (80.0-96.0); MONO # 0.6 10^3/uL (0.0-0.8); MONO % 10.4 % (0.0-5.0); NEUTROPHILS # 3.3 10^3/uL (1.5-8.5); NEUTROPHILS % 53.8 % (36.0-66.0); PLATELET COUNT, AUTOMATED 252 10^3/uL (150-450); WHITE BLOOD COUNT 6.1 10^3/uL (4.0-10.0)
[2020-06-21 06:38] LABS: ALT/SGPT 18 U/L (12-78); BILIRUBIN,TOTAL 0.3 MG/DL (0.2-1.0); BLOOD UREA NITROGEN 22 MG/DL (7-18); CALCIUM LEVEL 10.3 MG/DL (8.8-10.2); CARBON DIOXIDE LEVEL 30 MEQ/L (21-32); CHLORIDE LEVEL 106 MEQ/L (98-107); CHOLESTEROL LEVEL 146 MG/DL (<200); CHOLESTEROL RISK RATIO 1.848 (<5); CREATININE FOR GFR 0.84 MG/DL (0.55-1.30); GLOMERULAR FILTRATION RATE > 60.0 (>32); GLUCOSE, FASTING 116 MG/DL (70-100); HDL CHOLESTEROL 79 MG/DL (>40); LDL CHOLESTEROL 50 MG/DL (<100); NON-HDL-C 67 MG/DL; SODIUM LEVEL 140 MEQ/L (136-145); TOTAL PROTEIN 6.1 GM/DL (6.4-8.2); TRIGLYCERIDES LEVEL 84 MG/DL (<150)
[2020-06-21] MEDS: COMBIVENT RESPIMAT 100-20MCG INHALER 4GM INH SCH ×4 (07:41→20:09)
[2020-06-21 08:00] VITALS: BP 115/62
--- NOTE | 2020-06-21 08:46 | HPEPDOC ---
[facility] Medical History & Physical Date of Admission Jun 20, 2020 Date of Service: Jun 20, 2020 History and Physical CHIEF COMPLAINT: funny feeling in right ear HISTORY OF PRESENT ILLNESS: 89 yo female presents for 'funny feeling' in right ear. She also noted RUE/RLE weakness. Her daughter additionally noted facial droop that was initially noted two days ago. She denies shortness of breath, changes in vision, headaches, falls, N/V/D, abdominal pain. PAST MEDICAL HISTORY: #CVA - not clear if residual deficits #afib ALLERGIES: Please see below. REVIEW OF SYSTEMS: Negative except as per HPI. HOME MEDICATIONS: Please see below. PHYSICAL EXAMINATION: VITAL SIGNS: See below General: NAD, lying comfortably in bed, elderly HEENT: NC/AT, EOMI Lungs: CTA B/L Heart: +S1S2, RRR Abd: soft, NT, +BS Ext: no edema Neuro: left facial droop, RLE weakness, sensation intact throughout Psych: AAOx3 LABORATORY DATA: See below. MICROBIOLOGY: Please see below. A/P: 89 yo female for right upper/lower extremity weakness, with facial droop, suspicious for CVA. PMHx CVA, afib, HLD. #suspected CVA - neurology c/s pending - MRI, echo ordered - already on statin, asa, eliquis - PT/OT/ST #afib - rate/rhythm controlled - on Eliquis for a/c #HLD #DVT prophylaxis - as above on Eliquis Vital Signs Vital Signs Date Time Temp Pulse Resp B/P (MAP) Pulse Ox O2 Delivery O2 Flow Rate FiO2 06/21/20 04:00 97.8 63 18 132/58 (82) 90 Room Air Laboratory Data Labs 24H Laboratory Tests 2 06/20/20 13:05: Immature Granulocyte % (Auto) 0.5, Neutrophils (%) (Auto) 55.8, Lymphocytes (%) (Auto) 24.2, Monocytes (%) (Auto) 9.4H, Eosinophils (%) (Auto) 9.6H, Basophils (%) (Auto) 0.5, Neutrophils # (Auto) 3.2, Lymphocytes # (Auto) 1.4L, Monocytes # (Auto) 0.5, Eosinophils # (Auto) 0.6H, Basophils # (Auto) 0.0, Nucleated Red Blood Cells % (auto) 0.0, Anion Gap 5L, Glomerular Filtration Rate 59.7, Lactic Acid Level 1.2, Calcium Level 9.8, Total Bilirubin 0.3, Direct Bilirubin 0.1, Aspartate Amino Transf (AST/SGOT) 20, Alanine Aminotransferase (ALT/SGPT) 18, Alkaline Phosphatase 102, Ammonia < 10, Total Creatine Kinase 50, Creatine Kinase MB 1.8, Creatine Kinase MB Relative Index 3.60, Troponin I < 0.02, Total Protein 6.3L, Albumin 3.2, Albumin/Globulin Ratio 1.0L, Thyroid Stimulating Hormone (TSH) 1.410 06/20/20 13:10: Urine Color STRAW, Urine Appearance CLEAR, Urine pH 6.0, Urine Specific Henderson 1.006, Urine Protein NEGATIVE, Urine Glucose (UA) NEGATIVE, Urine Ketones NEGATIVE, Urine Blood NEGATIVE, Urine Nitrite NEGATIVE, Urine Bilirubin NEGATIVE, Urine Urobilinogen 0.2, Urine Leukocyte Esterase NEGATIVE, Urine WBC (Auto) 1, Urine RBC (Auto) 0, Urine Hyaline Casts (Auto) 0, Urine Bacteria ( Auto) NEGATIVE, Urine Squamous Epithelial Cells 1, Urine Sperm (Auto) 06/21/20 05:41: Immature Granulocyte % (Auto) 0.3, Neutrophils (%) (Auto) 53.8, Lymphocytes (%) (Auto) 27.1, Monocytes (%) (Auto) 10.4H, Eosinophils (%) (Auto) 7.7H, Basophils (%) (Auto) 0.7, Neutrophils # (Auto) 3.3, Lymphocytes # (Auto) 1.7, Monocytes # (Auto) 0.6, Eosinophils # (Auto) 0.5, Basophils # (Auto) 0.0, Nucleated Red Blood Cells % (auto) 0.0, Anion Gap 4L, Glomerular Filtration Rate > 60.0, C alcium Level 10.3H, Total Bilirubin 0.3, Aspartate Amino Transf (AST/SGOT) 22, Alanine Aminotransferase (ALT/SGPT) 18, Alkaline Phosphatase 105, Total Protein 6.1L, Albumin 3.0L, Albumin/Globulin Ratio 1.0L, Magnesium Level 2.0, Triglycerides Level 84, Total Cholesterol 146, LDL Cholesterol 50, Non-HDL Cholesterol (LDL + VLDL) 67, Total HDL Cholesterol 79, Cholesterol/HDL Ratio 1.848 CBC/BMP Laboratory Tests 06/20/20 13:05 06/21/20 05:41 Microbiology Microbiology 06/20/20 Blood Culture, Received Pending 06/20/20 Blood Culture, Received Pending Home Medications Scheduled Allopurinol (Allopurinol) 100 Mg Tab, 100 MG PO DAILY Amlodipine Besylate (Amlodipine Besylate) 10 Mg Tab, 10 MG PO DAILY Apixaban (Eliquis) 5 Mg Tab, 5 MG PO BID Aspirin (Aspirin) 81 Mg Chw, 81 MG PO DAILY Atorvastatin Calcium (Atorvastatin Calcium) 20 Mg Tab, 20 MG PO QHS Calcitriol (Calcitriol) 0.25 Mcg Cap, 0.25 MCG PO DAILY Duloxetine HCl (Duloxetine HCl) 60 Mg Capsule.dr, 60 MG PO DAILY Ferrous Sulfate (Ferrous Sulfate) 325 Mg Tablet, 325 MG PO 3XW MON, WED, TUE Folic Acid (Folic Acid) 1 Mg Tab, 1 MG PO DAILY Furosemide (Furosemide) 20 Mg Tab, 20 MG PO DAILY Gabapentin (Neurontin) 300 Mg Cap, 600 MG PO BID Ipratropium/Albuterol Sulfate (Combivent Respimat 20-100 Mcg) 4 Gm Mist.inhal, 1 PUFF INH QID Levothyroxine Sodium (Levothyroxine Sodium) 100 Mcg Tab, 100 MCG PO DAILY Loratadine (Loratadine) 10 Mg Tab, 10 MG PO DAILY Losartan Potassium (Cozaar) 100 Mg Tab, 100 MG PO DAILY Montelukast Sodium (Montelukast Sodium) 10 Mg Tab, 10 MG PO DAILY Omeprazole (Omeprazole) 20 Mg Cap, 20 MG PO DAILY Scheduled PRN Albuterol Sulfate (Proair Hfa) 8.5 Gm Hfa.aer.ad, 2 PUFF INH Q4H PRN for WHEEZING Docusate Sodium (Colace) 100 Mg Cap, 100 MG PO BID PRN for CONSTIPATION Allergies Coded Allergies: Penicillins (Verified Allergy, Intermediate, HIVES, 01/13/19) Sulfa (Sulfonamide Antibiotics) (Verified Allergy, Intermediate, HIVES, 01/13/19) codeine (Verified Allergy, Intermediate, HIVES, 01/13/19) hexachlorophene (Verified Allergy, Unknown, 01/13/19) morphine (Verified Adverse Reaction, Mild, HALLUCINATIONS, 01/13/19) A-FIB/CHADSVASC A-FIB History Current/History of A-Fib/PAF?: Yes Current PO Anticoag Therapy: Yes LALDIN,TOMMIE S. MD Jun 21, 2020 08:46
--- NOTE | 2020-06-21 08:47 | IPNPDOC ---
Text Note Date of Service The patient was seen on 06/21/20. NOTE S: Patient seen and examined at bedside. No acute overnight events reported. No new medical complaints this morning. O: VITAL SIGNS: See below General: NAD, lying comfortably in bed, elderly HEENT: NC/AT, EOMI Lungs: CTA B/L Heart: +S1S2, RRR Abd: soft, NT, +BS Ext: no edema Neuro: left facial droop, RLE weakness, sensation intact throughout Psych: AAOx3 LABORATORY DATA: See below. MICROBIOLOGY: Please see below. A/P: 89 yo female for right upper/lower extremity weakness, with facial droop, suspicious for CVA. PMHx CVA, afib, HLD. #suspected CVA - neurology c/s pending - MRI, echo pending - already on statin, asa, eliquis - PT/OT #afib - rate/rhythm controlled - on Eliquis for a/c #HLD - lipid profile noted - continue statin as above #DVT prophylaxis - as above on Eliquis VS,Timbone, I+O VS, Fishbone, I+O Laboratory Tests 06/20/20 13:05 06/21/20 05:41 Vital Signs Date Time Temp Pulse Resp B/P (MAP) Pulse Ox O2 Delivery O2 Flow Rate FiO2 06/21/20 04:00 97.8 63 18 132/58 (82) 90 Room Air I&O- Last 24 Hours up to 6 AM 06/21/20 06:00 Intake Total 240 ml Output Total 0 ml Balance 240 ml TOMMIE LEE MD Jun 21, 2020 08:47
[2020-06-21] MEDS: LOSARTAN 50MG TABLET PO SCH (09:00)
[2020-06-21] MEDS: FUROSEMIDE 20 MG TAB PO SCH (09:00)
[2020-06-21] MEDS: amLODIPine 10 MG TAB PO SCH (09:00)
[2020-06-21] MEDS: DULoxetine 30 MG CAP (CYMBALTA) PO SCH (09:06)
[2020-06-21] MEDS: allopurinoL 100 MG TAB PO SCH (09:07)
[2020-06-21] MEDS: OMEPRAZOLE 20 MG CAP PO SCH (09:07)
[2020-06-21] MEDS: LORATADINE 10 MG TAB PO SCH (09:07)
[2020-06-21] MEDS: FOLIC ACID 1 MG TAB PO SCH (09:07)
[2020-06-21] MEDS: APIXABAN 5 MG TAB (ELIQUIS) PO SCH ×2 (09:07→21:16)
[2020-06-21] MEDS: CALCITRIOL 0.25 MCG CAP (S0169) PO SCH (09:07)
[2020-06-21] MEDS: MONTELUKAST 10 MG TAB PO SCH (09:07)
[2020-06-21] MEDS: ASPIRIN 81 MG CHEW TABLET PO SCH (09:07)
[2020-06-21] MEDS: GABAPENTIN 300 MG CAP PO SCH ×2 (09:08→21:16)
[2020-06-21] MEDS: DOCUSATE SODIUM 100 MG CAP PO PRN (11:58)
[2020-06-21 12:00] VITALS: BP 145/60
--- NOTE | 2020-06-21 12:01 | ECGEPIP ---
[facility] - ED Test Date: 2020-06-20 Pat Name: PADMAJA ROD Department: Room: - Gender: Female Executive Team Leader: MEE : [id number] Requested By: Meg Gupta Order Number: [id number] Reading MD: King Bernstein Measurements Intervals Morris Rate: 64 P: 37 MS: 166 QRS: -14 QRSD: 94 T: 29 QT: 411 QTc: 426 Interpretive Statements SINUS RHYTHM POOR R WAVE PROGRESSION SIMILAR TO 12/05/19 Electronically Signed on 06-21-2020 12:01:17 EDT by King Bernstein
--- NOTE | 2020-06-21 16:29 | REPVR ---
PROCEDURE INFORMATION: Exam: MR Head Without Contrast Exam date and time: 06/21/2020 3:47 PM Age: 89 years old Clinical indication: Weakness, extremity; Patient HX: Right sided weakness; Additional info: Right side weakness TECHNIQUE: Imaging protocol: MR of the head without contrast. COMPARISON: MRI-Brain without Contrast 11/23/2019 8:03 PM FINDINGS: Brain: Chronic small left basal ganglia lacunar infarct. Mild nonspecific T2/FLAIR hyperintensities of the periventricular and deep subcortical white matter, most likely secondary to chronic small vessel ischemic change. No intracranial hemorrhage or extra-axial fluid collection. No evidence of mass effect or midline shift. No restricted diffusion to suggest acute infarct. Ventricles: Mild prominence of the ventricles and sulci, likely attributed to parenchymal volume loss. Bones/joints: Unremarkable. Sinuses: Unremarkable. Mastoid air cells: No mastoid effusion. Orbits: Unremarkable. Soft tissues: Unremarkable. IMPRESSION: 1. No acute intracranial pathology. 2. Other chronic findings, as above. Electronically signed by: Chivo Aquino On 06/21/2020 16:29:14 PM
--- NOTE | 2020-06-21 16:30 | REPVR ---
PROCEDURE INFORMATION: Exam: MR Angiogram Head Without Contrast, Arteries Exam date and time: 06/21/2020 3:47 PM Age: 89 years old Clinical indication: Patient HX: Right sided weakness; Additional info: Right side weakness TECHNIQUE: Imaging protocol: MR angiogram head without contrast. Exam focused on the arteries. 3D rendering (Not supervised by radiologist): MIP and/or 3D reconstructed images were created by the technologist. COMPARISON: MRA BRAIN W/O CONTRAST 11/23/2019 8:03 PM FINDINGS: ANTERIOR CIRCULATION: Right internal carotid artery: Intracranial segment is patent with no significant stenosis. No aneurysm. Right middle cerebral artery: No occlusion or significant stenosis. No aneurysm. Right anterior cerebral artery: No occlusion or significant stenosis. No aneurysm. Left internal carotid artery: Intracranial segment is patent with no significant stenosis. No aneurysm. Left middle cerebral artery: No occlusion or significant stenosis. No aneurysm. Left anterior cerebral artery: No occlusion or significant stenosis. No aneurysm. POSTERIOR CIRCULATION: Right vertebral artery: Small caliber though otherwise patent intracranial right vertebral artery. Left vertebral artery: No occlusion or significant stenosis. No aneurysm. Basilar artery: No occlusion or significant stenosis. No aneurysm. Right posterior cerebral artery: No occlusion or significant stenosis. No aneurysm. Left posterior cerebral artery: No occlusion or significant stenosis. No aneurysm. IMPRESSION: No MRA evidence of intracranial arterial occlusion or significant stenosis. Electronically signed by: Chivo Aquino On 06/21/2020 16:30:32 PM
[2020-06-21] MEDS ORDERED: SLF 3 ML SYR IV PRN (16:45)
[2020-06-21 17:00] VITALS: BP 135/74
[2020-06-21 20:00] VITALS: BP 162/60
[2020-06-21] MEDS: SLF 3 ML SYR IV SCH (21:16)
[2020-06-21] MEDS: ATORVASTATIN 20 MG TAB PO SCH (21:16)
[2020-06-22] VITALS (7 sets, daily range): BP systolic 138–174; BP diastolic 58–82
[2020-06-22] MEDS: LEVOTHYROXINE 100MCG TABLET (0.1MG) PO SCH (06:08)
[2020-06-22] MEDS: SLF 3 ML SYR IV SCH ×3 (06:08→20:27)
[2020-06-22] MEDS: COMBIVENT RESPIMAT 100-20MCG INHALER 4GM INH SCH ×4 (07:08→20:01)
[2020-06-22] MEDS: FOLIC ACID 1 MG TAB PO SCH (09:29)
[2020-06-22] MEDS: GABAPENTIN 300 MG CAP PO SCH ×2 (09:29→20:27)
[2020-06-22] MEDS: CALCITRIOL 0.25 MCG CAP (S0169) PO SCH (09:29)
[2020-06-22] MEDS: LORATADINE 10 MG TAB PO SCH (09:29)
[2020-06-22] MEDS: MONTELUKAST 10 MG TAB PO SCH (09:29)
[2020-06-22] MEDS: ASPIRIN 81 MG CHEW TABLET PO SCH (09:29)
[2020-06-22] MEDS: allopurinoL 100 MG TAB PO SCH (09:29)
[2020-06-22] MEDS: OMEPRAZOLE 20 MG CAP PO SCH (09:29)
[2020-06-22] MEDS: APIXABAN 5 MG TAB (ELIQUIS) PO SCH ×2 (09:29→20:27)
[2020-06-22] MEDS: DULoxetine 30 MG CAP (CYMBALTA) PO SCH (09:29)
[2020-06-22] MEDS: DOCUSATE SODIUM 100 MG CAP PO PRN (09:30)
[2020-06-22] MEDS: amLODIPine 10 MG TAB PO SCH (09:41)
[2020-06-22] MEDS: LOSARTAN 50MG TABLET PO SCH (09:41)
[2020-06-22] MEDS: FUROSEMIDE 20 MG TAB PO SCH (09:41)
--- NOTE | 2020-06-22 09:43 | IPNPDOC ---
Text Note Date of Service The patient was seen on 06/22/20. NOTE S: Patient seen and examined at bedside. No acute overnight events reported. No new medical complaints this morning. Still notes decreased hearing and discomfort in her right ear. States she does have chronic issues with cerumen build up in her right ear. O: VITAL SIGNS: See below General: NAD, lying comfortably in bed, elderly HEENT: NC/AT, EOMI Lungs: CTA B/L Heart: +S1S2, RRR Abd: soft, NT, +BS Ext: no edema Neuro: RLE weakness, sensation intact throughout Psych: AAOx3 LABORATORY DATA: See below. MICROBIOLOGY: Please see below. A/P: 89 yo female for right upper/lower extremity weakness, with facial droop, suspicious for CVA. PMHx CVA, afib, HLD. #suspected CVA - neurology c/s pending - MRI no acute pathology, echo pending report, US carotid pending - already on statin, asa, eliquis - PT/OT - cleared for home #afib - rate/rhythm controlled - on Eliquis for a/c #HLD - lipid profile noted - continue statin as above #DVT prophylaxis - as above on Eliquis Dispo: pending US carotid, neuro c/s, PFS evaluation if services needed at home. She states her daughter lives upstairs and provides assistance. VS,Fishbone, I+O VS, Fishbone, I+O Vital Signs Date Time Temp Pulse Resp B/P (MAP) Pulse Ox O2 Delivery O2 Flow Rate FiO2 06/22/20 08:00 96.9 60 20 140/70 (93) 94 Room Air I&O- Last 24 Hours up to 6 AM 06/22/20 05:59 Intake Total 1370 ml Output Total 0 ml Balance 1370 ml TOMMIE LEE MD Jun 22, 2020 09:43
--- NOTE | 2020-06-22 11:02 | REPVR ---
PROCEDURE INFORMATION: Exam: US Duplex Bilateral Extracranial Arteries Exam date and time: 06/22/2020 10:32 AM Age: 89 years old Clinical indication: Condition or disease; Other: CVA; Additional info: CVA, loss of RT hearing TECHNIQUE: Imaging protocol: Real-time Duplex ultrasound scan of the bilateral carotid and vertebral arteries combining ricks scale, color Doppler and spectral waveform analysis. Bilateral exam. COMPARISON: CT Head without contrast 06/20/2020 12:19 PM and CTA 10/06/2018. FINDINGS: Right common carotid artery: No occlusion or stenosis. PSV is 88.9 cm/s. Waveforms are normal. Right internal carotid artery: There is atherosclerotic disease with calcified plaques without turbulence on color-flow imaging. No occlusion or stenosis. PSV is 97.4 cm/s. Waveforms are normal. Right ICA/CCA ratio: Within normal limits (1.1). Right external carotid artery: No stenosis in the origin. Right vertebral artery: Antegrade flow. Left common carotid artery: No occlusion or stenosis. PSV is 83.0 cm/s. Waveforms are normal. Left internal carotid artery: There is atherosclerotic disease with calcified plaques without turbulence on color-flow imaging. No occlusion or stenosis. PSV is 115.9 cm/s. Waveforms are normal. Left ICA/CCA ratio: Within normal limits (1.4). Left external carotid artery: No stenosis in the origin. Left vertebral artery: Antegrade flow. Thyroid: There is a 2.5 x 1.0 x 1.8 cm nearly anechoic right thyroid nodule. IMPRESSION: There is atherosclerotic disease. There is no hemodynamically significant stenosis in the carotid system. REFERENCES: SRU CRITERIA. The degree of internal carotid artery stenosis is based on criteria defined by the Society of Radiologists in Ultrasound (SRU). Normal is no stenosis. Mild is less than 50% stenosis. Moderate is 50-69% stenosis. Severe is greater than 69% stenosis to near occlusion. Near occlusion is a markedly narrowed lumen. Total occlusion is no detectable patent lumen. Electronically signed by: Luis Fernando Betancur On 06/22/2020 11:01:50 AM
[2020-06-22] MEDS ORDERED: HYDROCHLOROthiazide 6.25MG PER 1/4TAB PO ONE (19:00)
[2020-06-22] MEDS: ATORVASTATIN 20 MG TAB PO SCH (20:27)
[2020-06-23] VITALS: BP 141/65
[2020-06-23 04:00] VITALS: BP 148/68
[2020-06-23] MEDS: SLF 3 ML SYR IV SCH (06:49)
[2020-06-23] MEDS: LEVOTHYROXINE 100MCG TABLET (0.1MG) PO SCH (06:49)
[2020-06-23] MEDS: COMBIVENT RESPIMAT 100-20MCG INHALER 4GM INH SCH ×2 (07:08→11:07)
[2020-06-23 08:00] VITALS: BP 156/70
[2020-06-23] MEDS: LOSARTAN 50MG TABLET PO SCH (08:53)
[2020-06-23] MEDS: ASPIRIN 81 MG CHEW TABLET PO SCH (08:53)
[2020-06-23] MEDS: FOLIC ACID 1 MG TAB PO SCH (08:53)
[2020-06-23] MEDS: OMEPRAZOLE 20 MG CAP PO SCH (08:53)
[2020-06-23 08:54] VITALS: BP 156/70
[2020-06-23] MEDS: ACETAMINOPHEN TAB 650MG DOSE (2X325MG) PO PRN (08:54)
[2020-06-23] MEDS: amLODIPine 10 MG TAB PO SCH (08:54)
[2020-06-23] MEDS: GABAPENTIN 300 MG CAP PO SCH (08:54)
[2020-06-23] MEDS: CALCITRIOL 0.25 MCG CAP (S0169) PO SCH (08:54)
[2020-06-23] MEDS: allopurinoL 100 MG TAB PO SCH (08:54)
[2020-06-23] MEDS: MONTELUKAST 10 MG TAB PO SCH (08:55)
[2020-06-23] MEDS: FUROSEMIDE 20 MG TAB PO SCH (08:55)
[2020-06-23] MEDS: APIXABAN 5 MG TAB (ELIQUIS) PO SCH (08:55)
[2020-06-23] MEDS: LORATADINE 10 MG TAB PO SCH (08:55)
[2020-06-23] MEDS: DULoxetine 30 MG CAP (CYMBALTA) PO SCH (08:55)
[2020-06-23] MEDS ORDERED: FERROUS SULFATE 325MG TAB PO SCH (09:00)
--- NOTE | 2020-06-23 09:06 | REPVR ---
PROCEDURE INFORMATION: Exam: XR Right Knee Exam date and time: 06/23/2020 8:00 AM Age: 89 years old Clinical indication: Pain; Knee; Right; Additional info: Knee pain / history of total knee replacement TECHNIQUE: Imaging protocol: XR Right knee. Views: 4 or more views. COMPARISON: 1. CR - Knee, complete 11/09/2017 4:21:08 PM 2. CR - Knee, complete 12/19/2017 11:34 PM 3. CR - Tibia, Fibula lower leg 10/14/2018 12:39:06 PM FINDINGS: Bones/joints: The bones are diffusely demineralized; this limits evaluation for fractures. No acute fracture is identified. Total knee arthroplasty hardware is in place. The mild periprosthetic lucency of the lateral distal femur is unchanged compared to 11/09/2017. No evidence of hardware failure. No dislocation. Soft tissues: Unremarkable as visualized. Vasculature: Vascular calcifications. IMPRESSION: No acute findings. Electronically signed by: Luis Fernando Horton On 06/23/2020 09:06:34 AM
--- NOTE | 2020-06-23 13:29 | DS.PDOC ---
Discharge Summary General Date of Admission Jun 20, 2020 at 15:19 Date of Discharge 06/23/20 Specialist/Consultants Involve neurology, ENT Discharge Summary PROCEDURES PERFORMED DURING STAY: [None]. DISCHARGE DIAGNOSES: #multiple CVA - possible RUE/RLE residual #afib/eliquis #HLD COMPLICATIONS/CHIEF COMPLAINT: CVA. HISTORY OF PRESENT ILLNESS: 89 yo female presents for 'funny feeling' in right ear. She also noted RUE/RLE weakness. Her daughter additionally noted facial droop that was initially noted two days ago. She denied shortness of breath, changes in vision, headaches, falls, N/V/D, abdominal pain. HOSPITAL COURSE: Admitted for further evaluation and treatment. Neurology consulted for further assistance. No acute findings while inpatient, recommendations by neuro for o/p follow up. Cleared by PT for discharge home. She did complain of right ear discomfort and decreased hearing right ear. She was noted to have significant cerumen buildup. ENT consulted with recommendations for outpatient follow up. DISCHARGE MEDICATIONS: Please see below. ALLERGIES: Please see below. PHYSICAL EXAMINATION ON DISCHARGE: VITAL SIGNS: See below General: NAD, lying comfortably in bed, elderly HEENT: NC/AT, EOMI Lungs: CTA B/L Heart: +S1S2, RRR Abd: soft, NT, +BS Ext: no edema Neuro: left facial droop, RLE weakness, sensation intact throughout Psych: AAOx3 LABORATORY DATA: Please see below. ACTIVITY: [As tolerated]. DISPOSITION: Home Health Service. DISCHARGE INSTRUCTIONS: 1. PCP in 3-5 days 2. re-evaluate blood pressure with PCP DISCHARGE CONDITION: [Stable]. TIME SPENT ON DISCHARGE: 35 minutes. Vital Signs/I&Os Vital Signs Date Time Temp Pulse Resp B/P (MAP) Pulse Ox O2 Delivery O2 Flow Rate FiO2 06/23/20 08:54 67 156/70 06/23/20 08:00 97.1 20 94 Room Air I&O- Last 24 Hours up to 6 AM 06/23/20 05:59 Intake Total 760 ml Output Total 0 ml Balance 760 ml Microbiology Microbiology 06/20/20 Blood Culture - Preliminary, Resulted No Growth after 72 hours. All specime... 06/20/20 Blood Culture - Preliminary, Resulted No Growth after 72 hours. All specime... Discharge Medications Scheduled Allopurinol (Allopurinol) 100 Mg Tab, 100 MG PO DAILY, (Reported) Amlodipine Besylate (Amlodipine Besylate) 10 Mg Tab, 10 MG PO DAILY, (Reported) Apixaban (Eliquis) 5 Mg Tab, 5 MG PO BID, (Reported) Aspirin (Aspirin) 81 Mg Chw, 81 MG PO DAILY, (Reported) Atorvastatin Calcium (Atorvastatin Calcium) 20 Mg Tab, 20 MG PO QHS, (Reported) Calcitriol (Calcitriol) 0.25 Mcg Cap, 0.25 MCG PO DAILY, (Reported) Duloxetine HCl (Duloxetine HCl) 60 Mg Capsule.dr, 60 MG PO DAILY, (Reported) Ferrous Sulfate (Ferrous Sulfate) 325 Mg Tablet, 325 MG PO 3XW, (Reported) TUE, TUE, TUE Folic Acid (Folic Acid) 1 Mg Tab, 1 MG PO DAILY, (Reported) Furosemide (Furosemide) 20 Mg Tab, 20 MG PO DAILY, (Reported) Gabapentin (Neurontin) 300 Mg Cap, 600 MG PO BID, (Reported) Ipratropium/Albuterol Sulfate (Combivent Respimat 20-100 Mcg) 4 Gm Mist.inhal, 1 PUFF INH QID, (Reported) Levothyroxine Sodium (Levothyroxine Sodium) 100 Mcg Tab, 100 MCG PO DAILY, (Reported) Loratadine (Loratadine) 10 Mg Tab, 10 MG PO DAILY, (Reported) Losartan Potassium (Cozaar) 100 Mg Tab, 100 MG PO DAILY, (Reported) Montelukast Sodium (Montelukast Sodium) 10 Mg Tab, 10 MG PO DAILY, (Reported) Omeprazole (Omeprazole) 20 Mg Cap, 20 MG PO DAILY, (Reported) Scheduled PRN Albuterol Sulfate (Proair Hfa) 8.5 Gm Hfa.aer.ad, 2 PUFF INH Q4H PRN for WHEEZING, (Reported) Docusate Sodium (Colace) 100 Mg Cap, 100 MG PO BID PRN for CONSTIPATION, (Reported) Allergies Coded Allergies: Penicillins (Verified Allergy, Intermediate, HIVES, 01/13/19) Sulfa (Sulfonamide Antibiotics) (Verified Allergy, Intermediate, HIVES, 01/13/19) codeine (Verified Allergy, Intermediate, HIVES, 01/13/19) hexachlorophene (Verified Allergy, Unknown, 01/13/19) morphine (Verified Adverse Reaction, Mild, HALLUCINATIONS, 01/13/19) TOMMIE LEE MD Jun 23, 2020 13:29
--- NOTE | 2020-06-24 06:54 | ECHO ---
DATE OF PROCEDURE: 06/20/2020 REFERRING PHYSICIAN: Dr. Garcia INDICATION: Cerebral vascular accident. MEASUREMENTS: Aorta 2.7 LA 2.8 IV is 1.2 LV 3.7, LVPW 1.2 IVC 1.5 Mitral E wave velocity 92, A wave 124. E prime septal 4.5 E prime lateral 5.8 FINDINGS: The study is of acceptable technical quality. The patient is in sinus rhythm. Normal LV size with preserved LV systolic function, estimated ejection fraction (EF) around 70 to 75%. Mild left ventricular hypertrophy (LVH) is noted. Right ventricle is normal size and systolic function as well. Both atria appear normal. Aortic valve is mildly sclerotic. There is preserved mobility of leaflets. Same applies for mitral valve - there are apparent degenerative abnormalities of mitral leaflets, but mobility is preserved. Tricuspid and pulmonic valves appear normal. No pericardial effusion is noted. Aortic root is normal. Aortic arch and abdominal aorta were not well seen. Inferior vena cava is normal size and appropriately collapses with inspiration indicative of normal central venous pressure. Doppler interrogation reveals no aortic stenosis and trace insufficiency. The remaining three cardiac valves appear functionally competent. Mitral inflow pattern and tissue Doppler imaging of mitral annulus reveal grade 1 diastolic dysfunction. CONCLUSIONS: 1. Study is of acceptable technical quality. The patient is in sinus rhythm. 2. Normal LV size with mild left ventricular hypertrophy (LVH) and hyperdynamic LV systolic function. Estimated left ventricular ejection fraction (LVEF) 70 to 75%. Grade 1 diastolic dysfunction. 3. Aortic sclerosis with trivial insufficiency and no stenosis. 4. Remaining cardiac valves are functionally competent. 5. Normal central venous pressure, but unable to estimate pulmonary artery pressure. COMMENTS: No obvious explantation for cerebrovascular accident (CVA). [facility]
--- NOTE | 2020-07-04 10:44 | CR ---
DATE OF CONSULTATION: 06/21/2020 REFERRING PHYSICIAN: Idris Garcia MD REASON FOR CONSULTATION: Earache and right-sided weakness. HISTORY OF PRESENT ILLNESS: Patient is an 89-year-old woman who came to [facility] due to right ear pain and funny feeling. Daughter noted right-sided facial droop and right-sided arm and leg weakness. Her symptoms started 2 days prior to her hospital admission. Patient stated that she had multiple mini strokes and hospitalizations in [place] when she lived there. She was transferred to [facility] due to right-sided weakness from stroke. Patient stated that she has not missed the doses of her medications. She continues to take Eliquis, aspirin, and Lipitor. She denies any dysphagia, dysarthria, diplopia, or urinary incontinence. She has off and on headaches and dizzy spells. She has chronic neck and back pain. DIAGNOSTIC STUDIES: CT scan of head shows small vessel ischemic disease of brain. CBC and metabolic profile were within normal limits. LDL was 50 with HDL 79 and total cholesterol 146 and TSH 1.41. PAST MEDICAL HISTORY: Gout, hypertension, dyslipidemia, atrial fibrillation, chronic obstructive pulmonary disease (COPD), hypothyroidism, acid reflux. HOME MEDICATIONS: - aspirin 81 mg by mouth daily - Eliquis 5 mg by mouth twice a day - Lipitor 20 mg by mouth daily - allopurinol 100 mg by mouth daily - amlodipine 10 mg by mouth daily - calcitriol 0.25 mcg by mouth daily - Cymbalta 60 mg by mouth daily - ferrous sulfate 325 mg by mouth three times a week - folic acid 1 mg by mouth daily - Lasix 20 mg by mouth daily - gabapentin 600 mg by mouth twice a day - Combivent inhaler one inhalation four times a day - levothyroxine 100 mcg by mouth daily - Claritin 10 mg by mouth daily - losartan 100 mg by mouth daily - Singulair 10 mg by mouth daily - omeprazole 20 mg by mouth daily ALLERGIES: PENICILLIN, SULFA, CODEINE, MORPHINE. REVIEW OF SYSTEMS: All systems were reviewed and found to be noncontributory except as mentioned in history of present illness. PHYSICAL EXAMINATION: Temperature 97.8, pulse 62, respiratory rate 18, blood pressure 115/62, 93% saturation on room air. Heart: Irregularly irregular in rate and rhythm. Lungs: Clear to auscultation. Abdomen: Soft, nontender, nondistended. No pedal edema. No musculoskeletal abnormalities. No rash. No signs of meningeal irritation. Patient is awake, alert, oriented to place, person, and time. Normal speech, comprehension, and repetition. Extraocular muscles are intact. No facial weakness. Tongue and uvula are midline. 5/5 strength in left arm and leg. Face is symmetric bilaterally. Right arm and leg strength is 5-/5 and she also has pain. Plantars are downgoing. Normal sensation throughout. Gait was not tested. There is no dysmetria, tremors, or rigidity. There is no nystagmus. ASSESSMENT: 1. Right-sided face, arm, and leg weakness with concern for stroke. 2. Atrial fibrillation and history of transient ischemic attack (TIA) and stroke causing right hemiparesis in past. PLAN: 1. MRI and MRA brain and carotid ultrasound. 2. Continue aspirin 81 mg by mouth daily and Eliquis 5 mg by mouth twice a day with Lipitor 20 mg by mouth daily. 3. Physical and occupational therapy. 4. Follow with our office in 2 weeks after hospital discharge. ADELFO
== END 2020-06-23 11:51 | disposition home health service (06) | DRG 66 ==
LOC: M ED 11:58 → M ED INP 15:19 → M PCU 18:05
PROVIDERS: ADMIT Internal Medicine; ATTEND Internal Medicine
DX: I63.9 Cerebral infarction, unspecified (principal); I48.91 Unspecified atrial fibrillation; Z79.01 Long term (current) use of anticoagulants; H61.21 Impacted cerumen, right ear; Z79.899 Other long term (current) drug therapy; Z79.82 Long term (current) use of aspirin; Z88.0 Allergy status to penicillin; Z88.2 Allergy status to sulfonamides; Z88.5 Allergy status to narcotic agent; Z88.8 Allergy status to other drugs, medicaments and biological substances

== ENCOUNTER 2020-08-03 17:13 | Emergency (ER) | payer MEDICARE, MEDICAID ==
[~2020-08-03] VITALS: Ht 162.6 cm; Wt 86.4 kg
[~2020-08-03 17:13] MED LIST changes: +COMBAER6 INH; +FERR325T18 PO
[2020-08-03] MEDS ORDERED: NS 1,000 ML IV SCH (17:45)
[2020-08-03] MEDS ORDERED: ONDANSETRON 4MG/2ML VIAL IV ONE (17:45)
[2020-08-03] MEDS ORDERED: GASTROGRAFIN SOLUTION 30ML (Q9963) As Ordered ONE (18:19)
[2020-08-03 18:22] LABS: BASO % 0.3 % (0.0-1.0); EOS # 0.4 10^3/uL (0.0-0.5); EOS % 3.8 % (0.0-3.0); HEMATOCRIT 38.8 % (36.0-47.0); HEMOGLOBIN 11.9 g/dl (12.0-15.5); LYMPH % 19.2 % (24.0-44.0); MEAN CORPUSCULAR HEMOGLOBIN 29.5 pg (27.0-33.0); MEAN CORPUSCULAR HGB CONC 30.7 g/dl (32.0-36.5); MONO # 0.8 10^3/uL (0.0-0.8); MONO % 7.4 % (0.0-5.0); NEUTROPHILS # 7.3 10^3/uL (1.5-8.5); PLATELET COUNT, AUTOMATED 249 10^3/uL (150-450); RED BLOOD COUNT 4.04 10^6/uL (4.00-5.40); WHITE BLOOD COUNT 10.6 10^3/uL (4.0-10.0)
[2020-08-03] MEDS: GASTROGRAFIN SOLUTION 30ML PO SCH ×2 (18:32→18:59)
[2020-08-03 18:37] LABS: INR 1.28; PROTHROMBIN TIME 16.3 SECONDS (12.5-14.3)
[2020-08-03 18:38] LABS: PARTIAL THROMBOPLASTIN TIME 35.4 SECONDS (24.2-38.5)
[2020-08-03 18:51] LABS: ALBUMIN 3.5 GM/DL (3.2-5.2); BILIRUBIN,DIRECT 0.1 MG/DL (0.0-0.2); BILIRUBIN,TOTAL 0.4 MG/DL (0.2-1.0)
[2020-08-03] MEDS ORDERED: OMEP-218 PO (18:56)
--- NOTE | 2020-08-03 20:28 | REPVR ---
PROCEDURE INFORMATION: Exam: CT Abdomen And Pelvis Without Contrast Exam date and time: 08/03/2020 7:59 PM Age: 89 years old Clinical indication: Abdominal pain; Generalized; Additional info: Diffuse abd pain, vaginal bleeding vs hematuria TECHNIQUE: Imaging protocol: Computed tomography of the abdomen and pelvis without contrast. Radiation optimization: All CT scans at this facility use at least one of these dose optimization techniques: automated exposure control; mA and/or kV adjustment per patient size (includes targeted exams where dose is matched to clinical indication); or iterative reconstruction. COMPARISON: CT ABD PELVIS W/O CONTRAST 05/20/2020 7:43 PM FINDINGS: Liver: Normal. No mass. Gallbladder and bile ducts: There has been a cholecystectomy. Pancreas: There is diffuse pancreatic atrophy. Spleen: The spleen demonstrates punctate calcifications, consistent with remote granulomatous organism exposure. Adrenal glands: There is bilateral adrenal hyperplasia. Kidneys and ureters: 2.3 cm hypodensity lower pole right kidney consistent with cyst. Hyperdense foci measuring less than a cm in the upper pole of the right kidney likely represent hyperdense cysts. Confirmation with ultrasound suggested. Stomach and bowel: Large hiatal hernia containing oral contrast media with much of the stomach herniated into the lower right hemithorax. There is increased feces throughout the colon consistent with constipation. Mild diverticulosis is present in the left colon. No diverticulitis. Appendix: No evidence of appendicitis. Intraperitoneal space: Unremarkable. No free air. No significant fluid collection. Vasculature: The aortoiliac vessels demonstrate moderate atherosclerotic calcification. Lymph nodes: Unremarkable. No enlarged lymph nodes. Urinary bladder: Unremarkable as visualized. Reproductive: There has been a hysterectomy. Bones/joints: Moderate central spinal stenosis L3-L4 and L4-L5. Dextroscoliosis. Soft tissues: Unremarkable. Other findings: Osteoporosis. IMPRESSION: 1. Large hiatal hernia containing oral contrast media with much of the stomach herniated into the lower right hemithorax. 2. There has been a cholecystectomy. 3. There is increased feces throughout the colon consistent with constipation. 4. There is diffuse pancreatic atrophy. 5. There is bilateral adrenal hyperplasia. 6. 2.3 cm hypodensity lower pole right kidney consistent with cyst. Hyperdense foci measuring less than 1 cm in the upper pole of the right kidney likely represent hyperdense cysts. Confirmation with ultrasound suggested. 7. There has been a hysterectomy. 8. Mild diverticulosis is present in the left colon. No diverticulitis. COMMENTS: Consistent with the [employer]'s Incidental Findings Committee white paper (J Am Damir Radiol 2018): Any incidental renal lesion less than 1 cm or classified as too small to characterize, or any incidental cystic renal lesion characterized as simple-appearing, is likely benign. No follow-up imaging is recommended for these lesions per consensus recommendations based on imaging criteria. Electronically signed by: Shaheed Early On 08/03/2020 20:27:58 PM
[2020-08-03] MEDS ORDERED: cefTRIAXone SOD 1 GM in D5W MINI-BAG PLUS 50 ML IV ONE (20:45)
[2020-08-03] MEDS ORDERED: NITROFURANTOIN (MACROBID) 100 MG CAP PO ONE (21:00)
[2020-08-03] MEDS ORDERED: MACR100C43 PO (21:20)
[2020-08-03 21:35] VITALS: BP 165/65
--- NOTE | 2020-08-04 08:55 | ED PDOC ---
Post-Departure Follow-Up dr medina faxed formal report of ct abd/p for fu Feliz De Dios MD Aug 04, 2020 08:55
== END 2020-08-03 22:03 | disposition home or self-care (01) ==
LOC: M ED 17:13
DX: N30.01 Acute cystitis with hematuria (principal); I10 Essential (primary) hypertension; E78.5 Hyperlipidemia, unspecified; J45.909 Unspecified asthma, uncomplicated; Z86.73 Personal history of transient ischemic attack (TIA), and cerebral infarction without residual deficits; R56.9 Unspecified convulsions; Z86.718 Personal history of other venous thrombosis and embolism; K21.9 Gastro-esophageal reflux disease without esophagitis; E03.9 Hypothyroidism, unspecified; K44.9 Diaphragmatic hernia without obstruction or gangrene; R19.5 Other fecal abnormalities; E27.8 Other specified disorders of adrenal gland; K86.89 Other specified diseases of pancreas; R93.421 Abnormal radiologic findings on diagnostic imaging of right kidney; Z79.82 Long term (current) use of aspirin; Z79.899 Other long term (current) drug therapy; Z88.0 Allergy status to penicillin; Z88.2 Allergy status to sulfonamides; Z88.5 Allergy status to narcotic agent; Z88.8 Allergy status to other drugs, medicaments and biological substances
CPT/HCPCS: 74176; 80047; 80076; 81001; 83690; 85025; 85610; 85730; 86850; 86900; 86901; 87086; 87210; 96361; 96374; 96375; 99284; J0696; J2405

== ENCOUNTER 2020-08-20 12:17 | Emergency (ER) | payer MEDICARE, MEDICAID ==
[~2020-08-20] VITALS: Ht 162.6 cm; Wt 87.3 kg
[~2020-08-20 12:17] MED LIST changes: +OMEP-218 PO
[2020-08-20] MEDS ORDERED: GABAPENTIN 100 MG CAP PO ONE (13:00)
[2020-08-20] MEDS ORDERED: GABAPENTIN 300 MG CAP PO ONE (13:15)
[2020-08-20 13:39] LABS: HEMOGLOBIN 10.5 g/dl (12.0-15.5); MEAN CORPUSCULAR HGB CONC 31.8 g/dl (32.0-36.5); MEAN CORPUSCULAR VOLUME 94.3 fl (80.0-96.0); PLATELET COUNT, AUTOMATED 224 10^3/uL (150-450); WHITE BLOOD COUNT 5.9 10^3/uL (4.0-10.0)
[2020-08-20 13:55] LABS: C REACTIVE PROTEIN QUANTITATIV 0.31 MG/DL (0.00-0.30); CALCIUM LEVEL 9.5 MG/DL (8.8-10.2); CREATININE FOR GFR 0.96 MG/DL (0.55-1.30); GLOMERULAR FILTRATION RATE 58.3 (>32); POTASSIUM SERUM 4.3 MEQ/L (3.5-5.1); URIC ACID 5.4 MG/DL (2.6-6.0)
--- NOTE | 2020-08-20 13:58 | REP ---
INDICATION: pain COMPARISON: None. TECHNIQUE: Four views left foot obtained. FINDINGS: There is no evidence of acute fracture, dislocation, or intrinsic bone disease.There are arthritic changes noted. There is moderate joint space narrowing with mild subchondral sclerosis at the 1st metatarsophalangeal joint. There is mild inferior calcaneal spurring. There is mild dorsal navicular spurring. There is mild dorsal spurring of the cuneiforms. There is mild diffuse narrowing with subchondral sclerosis at the tarsal/metatarsal joints. There is diffuse narrowing of the interphalangeal joints of the toes. There are hammertoe deformities. There is arthritic change between the head of the 1st metatarsal and the adjacent sesamoid bones. IMPRESSION: No fracture or dislocation. Arthritic changes as above. <Electronically signed by Mushtaq Wills > 08/20/20 0226
[2020-08-20 14:11] LABS: ERYTHROCYTE SEDIMENTATION RATE 58 mm/hr (0-30)
[2020-08-20 15:44] VITALS: BP 168/79
== END 2020-08-20 15:47 | disposition home or self-care (01) ==
LOC: M ED 12:17 → EDBD 12:17 → M ED 15:47
DX: E11.40 Type 2 diabetes mellitus with diabetic neuropathy, unspecified (principal); I51.9 Heart disease, unspecified; I10 Essential (primary) hypertension; Z79.01 Long term (current) use of anticoagulants; Z79.82 Long term (current) use of aspirin; Z79.899 Other long term (current) drug therapy; Z88.0 Allergy status to penicillin; Z88.2 Allergy status to sulfonamides; Z88.5 Allergy status to narcotic agent; Z88.8 Allergy status to other drugs, medicaments and biological substances

== ENCOUNTER → 2020-08-22 | Outpatient (REF) | payer MEDICARE, MEDICAID | LOC: M SFHCRHEU 15:04 | PROVIDERS: ATTEND Internal Medicine | DX: M06.00 Rheumatoid arthritis without rheumatoid factor, unspecified site (principal); M81.0 Age-related osteoporosis without current pathological fracture; R53.82 Chronic fatigue, unspecified; Z11.59 Encounter for screening for other viral diseases ==

== ENCOUNTER → 2020-09-12 | Outpatient (CLI) | payer MEDICARE, MEDICAID ==
[~2020-09-12] MED LIST changes: -MONT10TA4 PO; +MONT5TAB2 PO
[2020-09-12 15:45] LABS: BASO % 0.4 % (0.0-1.0); EOS # 0.3 10^3/uL (0.0-0.5); EOS % 4.6 % (0.0-3.0); HEMATOCRIT 39.8 % (36.0-47.0); HEMOGLOBIN 12.3 g/dl (12.0-15.5); LYMPH # 1.4 10^3/uL (1.5-5.0); LYMPH % 19.3 % (24.0-44.0); MEAN CORPUSCULAR HEMOGLOBIN 29.5 pg (27.0-33.0); MEAN CORPUSCULAR HGB CONC 30.9 g/dl (32.0-36.5); MEAN CORPUSCULAR VOLUME 95.4 fl (80.0-96.0); MONO # 0.6 10^3/uL (0.0-0.8); MONO % 7.7 % (0.0-5.0); NEUTROPHILS # 4.9 10^3/uL (1.5-8.5); NEUTROPHILS % 67.7 % (36.0-66.0); PLATELET COUNT, AUTOMATED 266 10^3/uL (150-450); RED BLOOD COUNT 4.17 10^6/uL (4.00-5.40); WHITE BLOOD COUNT 7.3 10^3/uL (4.0-10.0)
[2020-09-12 16:24] LABS: ALBUMIN 3.6 GM/DL (3.2-5.2); ALT/SGPT 20 U/L (12-78); BILIRUBIN,DIRECT 0.1 MG/DL (0.0-0.2); BILIRUBIN,TOTAL 0.4 MG/DL (0.2-1.0); BLOOD UREA NITROGEN 26 MG/DL (7-18); C REACTIVE PROTEIN QUANTITATIV 0.44 MG/DL (0.00-0.30); CALCIUM LEVEL 10.2 MG/DL (8.8-10.2); CARBON DIOXIDE LEVEL 30 MEQ/L (21-32); CHLORIDE LEVEL 106 MEQ/L (98-107); COMPLEMENT C3 136 MG/DL (90-180); COMPLEMENT C4 31 MG/DL (10-40); CREATININE FOR GFR 1.17 MG/DL (0.55-1.30); GLOMERULAR FILTRATION RATE 46.4 (>32); GLUCOSE, FASTING 117 MG/DL (70-100); HEPATITIS B SURFACE ANTIBODY NEGATIVE (POSITIVE); IMMUNOGLOBULIN G 865 MG/DL (681-1648); IRON (FE) 53 UG/DL (50-170); MAGNESIUM LEVEL 2.3 MG/DL (1.8-2.4); PHOSPHORUS LEVEL 3.3 MG/DL (2.5-4.9); POTASSIUM SERUM 4.4 MEQ/L (3.5-5.1); RHEUMATOID FACTOR QUANT < 10.0 IU/ML (<15.0); SODIUM LEVEL 141 MEQ/L (136-145); TOTAL 25(OH) VITAMIN D 21.9 NG/ML (30.0-100.0); TOTAL PROTEIN 6.9 GM/DL (6.4-8.2); VITAMIN B12 LEVEL 690 PG/ML (247-911)
[2020-09-12 16:32] LABS: HEPATITIS B SURFACE ANTIGEN NEGATIVE (NEGATIVE)
[2020-09-12 16:42] LABS: ERYTHROCYTE SEDIMENTATION RATE 46 mm/hr (0-30)
[2020-09-12 17:00] LABS: HEPATITIS C VIRUS ABY INDEX < 0.0 INDEX (<0.8)
[2020-09-15 12:10] LABS: ALBUMIN 3.75 GM/DL (3.29-5.55); ALBUMIN % 54.4 % (55.8-66.1); ALPHA-1-GLOBULIN % 5.4 % (2.9-4.9); ALPHA-1-GLOBULINS 0.37 GM/DL (0.17-0.41); ALPHA-2-GLOBULINS 0.88 GM/DL (0.42-0.99); ALPHA-2-GLOBULINS % 12.7 % (7.1-11.8); BETA-1-GLOBULINS % 7.2 % (4.7-7.2); BETA-2-GLOBULINS 0.42 GM/DL (0.19-0.55); BETA-2-GLOBULINS % 6.1 % (3.2-6.5); GAMMA GLOBULIN % 14.2 % (11.1-18.8); GAMMA GLOBULINS 0.98 GM/DL (0.65-1.58)
[2020-09-15 23:10] LABS: COMPLEMENT TOTAL (CH50) > 60 U/mL (>41); CYCLIC CITRULLINATED PEPTIDE 5 units (0-19); HEPATITIS B CORE ANTIBODY IGG Negative (Negative); SSA SJOGRENS A <0.2 AI (0.0-0.9); SSB SJOGRENS B <0.2 AI (0.0-0.9)
== END ==
LOC: M PLALAB 13:53
PROVIDERS: ATTEND Internal Medicine
DX: M06.00 Rheumatoid arthritis without rheumatoid factor, unspecified site (principal); M81.0 Age-related osteoporosis without current pathological fracture; Z11.59 Encounter for screening for other viral diseases; R53.82 Chronic fatigue, unspecified

== ENCOUNTER → 2020-10-01 | Outpatient (REF) | payer MEDICARE, MEDICAID ==
[2020-10-01 17:33] LABS: TOTAL PROTEIN 7.4 GM/DL (6.4-8.2)
[2020-10-01 17:39] LABS: CHOLESTEROL RISK RATIO 2.207 (<5); THYROID STIMULATING HORMONE 1.25 uIU/ML (0.358-3.740)
[2020-10-02 12:43] LABS: ALBUMIN % 55.4 % (55.8-66.1); ALPHA-1-GLOBULIN % 5.1 % (2.9-4.9); ALPHA-1-GLOBULINS 0.38 GM/DL (0.17-0.41); ALPHA-2-GLOBULINS 0.95 GM/DL (0.42-0.99); ALPHA-2-GLOBULINS % 12.9 % (7.1-11.8); BETA-1-GLOBULINS 0.53 GM/DL (0.28-0.60); BETA-1-GLOBULINS % 7.1 % (4.7-7.2); BETA-2-GLOBULINS 0.45 GM/DL (0.19-0.55); BETA-2-GLOBULINS % 6.1 % (3.2-6.5); GAMMA GLOBULIN % 13.4 % (11.1-18.8); GAMMA GLOBULINS 0.99 GM/DL (0.65-1.58)
[2020-10-02 12:53] LABS: IMMUNOTYPING SERUM IGG ABNORMAL (NORMAL); IMMUNOTYPING SERUM KAPPA ABNORMAL (NORMAL)
== END ==
LOC: M SFHCPLAZ 13:58
PROVIDERS: ATTEND Internal Medicine
DX: E88.09 Other disorders of plasma-protein metabolism, not elsewhere classified (principal); E03.9 Hypothyroidism, unspecified; E78.00 Pure hypercholesterolemia, unspecified

== ENCOUNTER 2020-10-17 15:32 | Emergency (ER) | payer MEDICARE, MEDICAID ==
[~2020-10-17 15:32] MED LIST changes: +GABA-282 PO; -GABA-843 PO; +MONT10TA10 PO; -MONT5TAB2 PO
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
--- OUTSIDE RECORDS SUMMARY | 2020-10-17 16:38 | CCD | Continuity of Care Document ---
Author Author Marcie BRITTON M.D. Organization Unknown Address [address] [place] [address] Phone [phone] Care Team Providers Care Insurance Underwriting Assistant Name Role Phone Charli Steiner M.D. AUTM [phone] Problems Active Problems Provider Date Ischemic stroke Fredrick Britton M.D. Onset: 10/26/2018 Social History Type Date Description Comments Sex Unknown Tobacco Use Start: Unknown Patient has never smoked Allergies, Adverse Reactions, Alerts Active Allergies Reaction Severity Comments Date Penicillin 10/26/2018 Codeine 10/26/2018 Morphine and Related 019 Medications Active Medications SIG Qnty Indications Ordering Provide r Date Diazepam 5mg Tablets take 1 tab 30-60 minutes prior to mri. 1tablanco Britton M.D. 10/04 Meclizine HCL 25mg Tablets take one tablet every 8 hours as needed for dizzines and vertigo 90lesia Britton M.D. 10/26/2018 Eliquis 5mg Tablets 1 by mouth twice a day 60lesia Britton M.D. Aspirin Low Dose 81mg Tablets DR Fredrick Britton M.D. Immunizations Description No Information Available Vital Signs Date Vital Result Comment 08/07/2020 11:56am Respiratory Rate 12 /min Height 64 inches 5'4" Weight 190.00 lb BMI (Body Mass Index) 32.6 kg/m2 [place] Body Weight 120 lb 04/30/2020 2:24pm Respiratory Rate 12 /min Height 64 inches 5'4" Weight 190.00 lb BMI (Body Mass Index) 32.6 kg/m2 [place] Body Weight 120 lb Results Test Acquired Date Facility Test Result H/L Range Note Laboratory test finding 06/04/2020 [facility] Erythrocyte Sedimentation Rate 47 mm/hr High 0-30 Antinuclear Antibodies 06/04/2020 [facility] Antinuclear Antibodies Direct Negative Normal Negative 1 1 Performed at: RN - [facility] [address] [id number] Dust Handler: Renee Camp MD, Phone: [phone] Procedures Date Code Description Status 02/15/2020 16683 Sympathetic Skin Responses Compl eted 02/15/2020 21066 Sympathetic Skin Responses Compl eted 02/15/2020 15281 Test Autonomic Nervous System, C ardiovagal Innervation Completed 02/15/2020 86956 Test Autonomic Nervous System, C ardiovagal Innervation Completed Medical Devices Description No Information Available Encounters Type Date Location Provider Dx Diagnosis Office Visit 08/07/2020 11:15a [facility] [place] Fredrick thao M.D. G45.9 Transient cerebral ischemic attack, unsp ecified H02.402 Unspecified ptosis of left e yelid Office Visit 04/30/2020 1:45p [facility] Fredrick thao M.D. G45.9 Transient cerebral ischemic attack, unsp ecified Assessments Date Code Description Provider 08/07/2020 G45.9 Transient cerebral ischemic jayshree ck, unspecified Fredrick Britton M.D. 08/07/2020 H02.402 Unspecified ptosis of left eyeli d Fredrick Britton M.D. 06/21/2020 G45.9 Transient cerebral ischemic jayshree ck, unspecified Vipul Gamez M.D. 04/30/2020 G45.9 Transient cerebral ischemic jayshree ck, unspecified Fredrick Britton M.D. 02/15/2020 I95.1 Orthostatic hypotension Fredrick hawley M.D. 02/15/2020 I95.1 Orthostatic hypotension Ans/VS Plan of Treatment Future Appointment(s):* 11/14/2020 11:00 am - Fredrick Britton M.D. at [facility] Functional Status Description No Information Available Mental Status Description No Information Available Referrals Description No Information Available
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
--- OUTSIDE RECORDS SUMMARY | 2020-10-17 16:38 | CCD | Continuity of Care Document ---
Author Author Marcie BRITTON M.D. Organization Unknown Address [address] [place] [id number] Phone [phone] Care Team Providers Care Hand Tennis Ball Coverer Name Role Phone Charli Steiner M.D. AUTM [phone] Problems Active Problems Provider Date Ischemic stroke [...] Tablets 1 by mouth twice a day 60tablanco Britton M.D. Aspirin Low Dose 81mg Tablets DR Fredrick Britton M.D. Immunizations Description No Information Available Vital Signs Date Vital Result Comment 08/07/2020 11:56am Respiratory Rate 12 /min Height 64 inches 5'4" Weight 190.00 lb BMI (Body Mass Index) 32.6 kg/m2 Hiko Body Weight 120 lb 04/30/2020 2:24pm Respiratory Rate 12 /min Height 64 inches 5'4" Weight 190.00 lb BMI (Body Mass Index) 32.6 kg/m2 Hiko Body Weight 120 lb Results Test Acquired Date Facility Test Result H/L Range Note Laboratory test finding 06/04/2020 [facility] Erythrocyte Sedimentation Rate 47 mm/hr High 0-30 Antinuclear Antibodies 06/04/2020 [facility] Antinuclear Antibodies Direct Negative Normal Negative 1 1 Performed at: RN - [facility] [address] [id number] Legal Collector: Renee Camp MD, Phone: [phone] Procedures Date Code Description Status 02/15/2020 09944 Sympathetic Skin Responses Compl eted 02/15/2020 55327 Sympathetic Skin Responses Compl eted 02/15/2020 95524 Test Autonomic Nervous System, C ardiovagal Innervation Completed 02/15/2020 45055 Test Autonomic Nervous System, C ardiovagal Innervation Completed Medical Devices Description No Information Available Encounters Type Date Location Provider Dx Diagnosis Office Visit 04/30/2020 1:45p Main office - [facility] Fredrick thao M.D. G45.9 Transient cerebral ischemic [...] I95.1 Orthostatic hypotension Ans/VS Plan of Treatment No Information Available Functional Status Description No Information Available Mental Status Description No Information Available Referrals Description No Information Available
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
--- OUTSIDE RECORDS SUMMARY | 2020-10-17 16:39 | CCD ---
Author Author [facility] Organization [facility] Address Unknown Phone Unavailable Care Team Providers Care [employer] Worker Name Role Phone NOEMI CALVO MD Unavailable Unavailable NOEMI CALVO MD Unavailable Unavailable NOEMI CALVO MD Unavailable Unavailable NOEMI CALVO MD Unavailable Unavailable NOEMI CALVO MD Unavailable Unavailable NOEMI CALVO MD Unavailable Unavailable NOEMI CALVO MD Unavailable Unavailable NOEMI CALVO MD Unavailable Unavailable NOEMI CALVO MD Unavailable Unavailable NOEMI CALVO MD Unavailable Unavailable NOEMI CALVO MD Unavailable Unavailable NOEMI CALVO MD Unavailable Unavailable NOEMI CALVO MD Unavailable Unavailable NOEMI CALVO MD Unavailable Unavailable NOEMI CALVO MD Unavailable Unavailable NOEMI CALVO MD Unavailable Unavailable NOEMI CALVO MD Unavailable Unavailable NOEMI CALVO MD Unavailable Unavailable NOEMI CALVO MD Unavailable Unavailable NOEMI CALVO MD Unavailable Unavailable NOEMI CALVO MD Unavailable Unavailable NOEMI CALVO MD Unavailable Unavailable NOEMI CALVO MD Unavailable Unavailable NOEMI CALVO MD Unavailable Unavailable NOEMI CALVO MD Unavailable Unavailable NOEMI CALVO MD Unavailable Unavailable NOEMI CALVO MD Unavailable Unavailable NOEMI CALVO MD Unavailable Unavailable NOEMI CALVO MD Unavailable Unavailable NOEMI CALVO MD Unavailable Unavailable TALISHA, J AUSTYN DPM PC Unavailable Unavailable ATLISHA, J AUSTYN [facility] Unavailable Unavailable TALISHA, J AUSTYN [facility] Unavailable Unavailable TALISHA, J AUSTYN [facility] Unavailable Unavailable TALISHA, J AUSTYN [facility] Unavailable Unavailable TALISHA, J AUSTYN [facility] Unavailable Unavailable TALISHA, J AUSTYN DPM [facility] Unavailable Unavailable TALISHA, J AUSTYN DPM [facility] Unavailable Unavailable TALISHA, J AUSTYN DPM [facility] Unavailable Unavailable TALISHA, J AUSTYN [facility] Unavailable Unavailable TALISHA, J AUSTYN [facility] Unavailable Unavailable TALISHA, J AUSTYN DPM [facility] Unavailable Unavailable TALISHA, J AUSTYN [facility] Unavailable Unavailable TALISHA, J AUSTYN [facility]PM [facility] Unavailable Unavailable TALISHA, J AUSTYN DPM [facility] Unavailable Unavailable TALISHA, J AUSTYN DPM [facility] Unavailable Unavailable TALISHA, J AUSTYN DPM [facility] Unavailable Unavailable TALISHA, J AUSTYN [facility] Unavailable Unavailable TALISHA, J AUSTYN DPM [facility] Unavailable Unavailable TALISHA, J AUSTYN [facility] Unavailable Unavailable TALISHA, J AUSTYN [facility] Unavailable Unavailable TALISHA, J AUSTYN [facility] Unavailable Unavailable TALISHA, J AUSTYN [facility] Unavailable Unavailable TALISHA, J AUSTYN [facility] Unavailable Unavailable TALISHA, J AUSTYN [facility] Unavailable Unavailable Novak, Shirlene Unavailable Unavailable Novak, Shirlene Unavailable Unavailable Novak, Shirlene Unavailable Unavailable Novak, Shirlene Unavailable Unavailable Novak, Shirlene Unavailable Unavailable Novak, Shirlene Unavailable Unavailable Novak, Shirlene Unavailable Unavailable Niall Dixon MD Unavailable Unavailable Niall Dixon MD Unavailable Unavailable Niall Dixon MD Unavailable Unavailable Niall Dixon MD Unavailable Unavailable Niall Dixon MD Unavailable Unavailable Niall Dixon MD Unavailable Unavailable Niall Dixon MD Unavailable Unavailable Niall Dixon MD Unavailable Unavailable Niall Dixon MD Unavailable Unavailable Niall Dixon MD Unavailable Unavailable Niall Dixon MD Unavailable Unavailable Niall Dixon MD Unavailable Unavailable Niall Dixon MD Unavailable Unavailable Niall Dixon MD Unavailable Unavailable Naill Dixon MD Unavailable Unavailable Niall Dixon MD Unavailable Unavailable Niall Dixon MD Unavailable Unavailable Niall Dixon MD Unavailable Unavailable Niall Dixon MD Unavailable Unavailable Niall Dixon MD Unavailable Unavailable Niall Dixon MD Unavailable Unavailable Niall Dixon MD Unavailable Unavailable Niall Dixon MD Unavailable Unavailable Niall Dixon MD Unavailable Unavailable Niall Dixon MD Unavailable Unavailable Niall Dixon MD Unavailable Unavailable Niall Dixon MD Unavailable Unavailable Niall Dixon MD Unavailable Unavailable Niall Dixon MD Unavailable Unavailable Niall Dixon MD Unavailable Unavailable Niall Dixon MD Unavailable Unavailable Niall Dixon MD Unavailable Unavailable Niall Dixon MD Unavailable Unavailable Niall Dixon MD Unavailable Unavailable Niall Dixon MD Unavailable Unavailable Niall Dixon MD Unavailable Unavailable Niall Dixon MD Unavailable Unavailable Niall Dixon MD Unavailable Unavailable Niall Dixon MD Unavailable Unavailable Niall Dixon MD Unavailable Unavailable Niall Dixon MD Unavailable Unavailable Niall Dixon MD Unavailable Unavailable Niall Dixon MD Unavailable Unavailable Niall Dixon MD Unavailable Unavailable Niall Dixon MD Unavailable Unavailable Niall Dixon MD Unavailable Unavailable Niall Dixon MD Unavailable Unavailable Niall Dixon MD Unavailable Unavailable Niall Dixon MD Unavailable Unavailable Niall Dixon MD Unavailable Unavailable Niall Dixon MD Unavailable Unavailable Niall Dixon MD Unavailable Unavailable Niall Dixon MD Unavailable Unavailable Niall Dixon MD Unavailable Unavailable Niall Dixon MD Unavailable Unavailable Niall Dixon MD Unavailable Unavailable Niall Dixon MD Unavailable Unavailable Niall Dixon MD Unavailable Unavailable Niall Dixon MD Unavailable Unavailable Niall Dixon MD Unavailable Unavailable Destiny, O Samah MD Unavailable Unavailable Destiny, O Samah MD Unavailable Unavailable Destiny, O Samah MD Unavailable Unavailable Destiny, O Samah MD Unavailable Unavailable Destiny, O Samah MD Unavailable Unavailable Destiny, O Samah MD Unavailable Unavailable Destiny, O Samah MD Unavailable Unavailable Destiny, O Samah MD Unavailable Unavailable Destiny, O Samah MD Unavailable Unavailable Destiny, O Samah MD Unavailable Unavailable Destiny, O Samah MD Unavailable Unavailable Destiny, O Samah MD Unavailable Unavailable Destiny, O Samah MD Unavailable Unavailable Destiny, O Samah MD Unavailable Unavailable Destiny, O Samah MD Unavailable Unavailable CALVO, NOEMI MD Unavailable Unavailable CALVO, NOEMI MD Unavailable Unavailable CALVO, NOEMI MD Unavailable Unavailable CALVO, NOEMI MD Unavailable Unavailable CALVO, NOEMI MD Unavailable Unavailable CALVO, NOEMI MD Unavailable Unavailable CALVO, NOEMI MD Unavailable Unavailable CALVO, NOEMI MD Unavailable Unavailable CALVO, NOEMI MD Unavailable Unavailable CALVO, NOEMI MD Unavailable Unavailable CALVO, NOEMI MD Unavailable Unavailable CALVO, NOEMI MD Unavailable Unavailable CALVO, NOEMI MD Unavailable Unavailable CALVO, NOEMI MD Unavailable Unavailable CALVO, NOEMI MD Unavailable Unavailable CALVO, NOEMI MD Unavailable Unavailable CALVO, NOEMI MD Unavailable Unavailable CALVO, NOEMI MD Unavailable Unavailable CALVO, NOEMI MD Unavailable Unavailable CALVO, NOEMI MD Unavailable Unavailable CALVO, NOEMI MD Unavailable Unavailable CALVO, NOEMI MD Unavailable Unavailable CALVO, NOEMI MD Unavailable Unavailable ACLVO, NOEMI MD Unavailable Unavailable CALVO, NOEMI MD Unavailable Unavailable CALVO, NOEMI MD Unavailable Unavailable CALVO, NOEMI MD Unavailable Unavailable CALVO, NOEMI MD Unavailable Unavailable CALVO, NOEMI MD Unavailable Unavailable CALVO, NOEMI MD Unavailable Unavailable Re-disclosure Warning The records that you are about to access may contain information from federally-assisted alcohol or drug abuse programs. If such information is present, then the following federally mandated warning applies: This information has been disclosed to you from records protected by federal confidentiality rules (42 CFR part 2). The federal rules prohibit you from making any further disclosure of this information unless further disclosure is expressly permitted by the written consent of the person to whom it pertains or as otherwise permitted by 42 CFR part 2. A general authorization for the release of medical or other information is NOT sufficient for this purpose. The Federal rules restrict any use of the information to criminally investigate or prosecute any alcohol or drug abuse patient.The records that you are about to access may contain highly sensitive health information, the redisclosure of which is protected by Article 27-F of the [facility] Public Health law. If you continue you may have access to information: Regarding HIV / AIDS; Provided by facilities licensed or operated by the [facility] Office of Mental Health; or Provided by the [facility] Office for People With Developmental Disabilities. If such information is present, then the following [facility] mandated warning applies: This information has been disclosed to you from confidential records which are protected by state law. State law prohibits you from making any further disclosure of this information without the specific written consent of the person to whom it pertains, or as otherwise permitted by law. Any unauthorized further disclosure in violation of state law may result in a fine or long term sentence or both. A general authorization for the release of medical or other information is NOT sufficient authorization for further disc losure. Allergies and Adverse Reactions Type Description Substance Reaction Status Data Source(s ) Drug allergy Morphine Sulfate Morphine Nausea/Vomiting [facility] Drug allergy Tramadol HCl Tramadol Nausea/Vomiting Active [facility] ([facility]) Codeine Sulfate Codeine Sulfate Codeine Sulfate Nausea/Vomiting Acti ve eCW1 ([facility]) Codeine Sulfate Codeine Sulfate Codeine Sulfate Nausea/Vomiting Acti ve eCW1 ([facility]) Family History Family Member Name Family Member Gender Family Member Status Date o f Status Description Data Source(s) Unknown Female Diagnosis 12/26/2013 12:00:00 AM EDT NextGen ([facility]) Unknown Male Problem MEDENT ([facility] Unknown Male Problem MEDENT ([facility] ) Encounters Encounter Providers Location Date Indications Data Source(s ) [place] [address] [facility] [address] 10/07/2020 12:00:00 AM EST eCW1 ([facility]) Office Visit, Est Pt., Level 4 PC [address] [place] [address] 10/01/2020 12:00:00 AM EST eCW1 ([facility]) Unknown [address] [facility] [address] 09/24/2020 12:00:00 AM EST eCW1 ([facility]) Unknown [address] [facility] [place] [address] 09/24/2020 12:00:00 AM EST eCW1 ([facility]) Outpatient [address] [facility] [place] [address] 08/22/2020 12:00:00 AM EST eCW1 ([facility]) Unknown [address] [facility] [place] [address] 08/21/2020 12:00:00 AM EST eCW1 ([facility]) Office Visit Attender: Fredrick Dixon MD Main office - [facility] 08/07/2020 10:15:00 AM EST MEDENT ([facility]) Unknown [address] [facility] [place] [address] 07/31/2020 12:00:00 AM EDT eCW1 ([facility]) Unknown [address] [facility] [place] [address] 07/23/2020 12:00:00 AM EDT eCW1 ([facility]) Unknown [address] [facility] [place] [address] 07/21/2020 12:00:00 AM EDT eCW1 ([facility]) Unknown [address] [facility] [place] [address] 07/14/2020 12:00:00 AM EDT eCW1 ([facility]) Outpatient Attender: Fredrick Dixon MD [facility] office - [facility] 04/30/2020 01:45:00 PM EDT MEDENT ([facility]) [facility] [place] [address] [facility] [place] [address] 04/01/2020 12:00:00 AM EDT eCW1 ([facility]) [place] [address] [facility] [address] 03/17/2020 12:00:00 AM EDT eCW1 ([facility]) [place] [address] [facility] [address] 03/06/2020 12:00:00 AM EDT eCW1 ([facility]) Outpatient Attender: AUSTYN GALLEGO 03/04/2020 02:26:00 PM EDT - 03/04/2020 02:26:00 PM EDT [facility] [address] [facility] [address] 03/03/2020 12:00:00 AM EDT eCW1 ([facility]) [facility] [address] [facility] [address] 02/28/2020 12:00:00 AM EDT eCW1 ([facility]) [facility] [address] [place] [address], [place] [address] 01/30/2020 12:00:00 AM EDT eCW1 ([facility]) Outpatient Attender: NOEMI CALVO MD Physical Therapy 11:00:00 AM EDT MEDENT ([facility]) Outpatient Referrer: NOEMI CALVO MD 01/04/2020 04:19:0 0 PM EDT [facility] Outpatient Referrer: NOEMI CALVO MD 01/04/2020 04:19:0 0 PM EDT [facility] Outpatient Referrer: NOEMI CALVO MD 01/04/2020 09:30:0 0 AM EDT [facility] Outpatient Referrer: Shirlene Novak 01/04/2020 09:28:00 A M EDT [facility] Outpatient Attender: NOEMI CALVO MD Physical Therapy 01:00:00 PM EDT MEDENT ([facility]) [facility] [address] [facility] [address] 12/17/2019 12:00:00 AM EDT eCW1 ([facility]) Outpatient Attender: AUSTYN MCKEEM PC 12/10/2019 02:30:00 PM EDT - 12/10/2019 02:30:00 PM EDT [facility] Outpatient Referrer: Shirlene Novak 12/10/2019 12:21:00 P M EDT [facility] [address] [facility] [address] 12/07/2019 12:00:00 AM EST eCW1 ([facility]) [facility] [address] [place] [address], [place] [address] 12/07/2019 12:00:00 AM EST [facility] [address] [place] [address], [place] [address] 12/05/2019 12:00:00 AM EST [facility]CW[facility]) [facility] [address] [place] [address], [place] [address] 12/05/2019 12:00:00 AM EST [facility]CW1 [facility]) Outpatient Referrer: Shirlene Novak 11/28/2019 07:55:00 P M EST [facility] [address] [place] [address], [place] [address] 11/28/2019 12:00:00 AM EST [facility]CW1 ([facility]) [facility] [address] [place] [address], [place] [address] 11/27/2019 12:00:00 AM EST [facility]CW1 ([facility]) [facility] [address] [place] [address], [place] [address] 11/23/2019 12:00:00 AM EST [facility]CW1 [facility]) Outpatient Referrer: Shirlene Novak 11/19/2019 03:40:00 P M EST [facility] Outpatient Referrer: Shirlene Novak 11/19/2019 03:37:00 P M EST [facility] Outpatient Referrer: Shirlene Novak 11/19/2019 03:31:00 P M EST [facility] [address] [place] [address], [place] [address] 11/13/2019 12:00:00 AM EST eCW1 ([facility]) [address] [address] 11/13/2019 12:00:00 AM EST eCW1 ([facility]) [address] [address] 11/05/2019 12:00:00 AM EST eCW1 ([facility]) [address] [address] 10/26/2019 12:00:00 AM EST eCW1 ([facility]) [address] [address] 10/23/2019 12:00:00 AM EST eCW1 ([facility]) [address] [address] 10/19/2019 12:00:00 AM EST eCW1 ([facility]) [address] [address] 10/11/2019 12:00:00 AM EST eCW1 ([facility]) [address] [address] 10/11/2019 12:00:00 AM EST eCW1 ([facility]) [address] [address] 10/09/2019 12:00:00 AM EST eCW1 ([facility]) Outpatient Attender: AUSTYN GALLEGO 09/28/2019 11:34:00 AM EST - 09/28/2019 11:34:00 AM EST [address] [address] 09/10/2019 12:00:00 AM EST eCW1 ([facility]) [address] [address] 08/24/2019 12:00:00 AM EST eCW1 ([facility]) Medications Medication Brand Name Start Date Product Form Dose Route Admi nistrative Instructions Pharmacy Instructions Status Indications Reaction Description Data Source(s) Nystatin 100 UNT/MG Topical Powder Nystatin 608001 UNI T/GM Nystatin 703607 UNIT/GM 10/01/2020 12:00:00 AM EST 1.0 {application} active Nystatin 698249 UNIT/GM [facility] Nystatin 100 UNT/MG Topical Powder Nystatin 584699 UNI T/GM Nystatin 570911 UNIT/GM 10/01/2020 12:00:00 AM EST 1.0 {application} active Nystatin 434319 UNIT/GM [facility]) Ergocalciferol 36111 UNT Oral Capsule Vi tamin D (Ergocalciferol) 1.25 MG (35720 UT) Vitamin D (Ergocalciferol) 1.25 MG (85957 UT) 09/24/2020 12:00:0 0 AM EST 1.0 {capsule} active Vitamin D (Ergocal ciferol) 1.25 MG (60848 UT) [facility]) Ergocalciferol 10503 UNT Oral Capsule Vi tamin D (Ergocalciferol) 1.25 MG (91689 UT) Vitamin D (Ergocalciferol) 1.25 MG (02007 UT) 09/24/2020 12:00:0 0 AM EST 1.0 {capsule} active Vitamin D (Ergocal ciferol) 1.25 MG (41190 UT) [facility]) Ergocalciferol 24427 UNT Oral Capsule Vi tamin D (Ergocalciferol) 1.25 MG (87679 UT) Vitamin D (Ergocalciferol) 1.25 MG (54431 UT) 09/24/2020 12:00:0 0 AM EST 1.0 {capsule} active Vitamin D (Ergocal ciferol) 1.25 MG (14440 UT) [facility]) Ergocalciferol 69681 UNT Oral Capsule Vi tamin D (Ergocalciferol) 1.25 MG (38214 UT) Vitamin D (Ergocalciferol) 1.25 MG (45486 UT) 09/24/2020 12:00:0 0 AM EST 1.0 {capsule} active Vitamin D (Ergocal ciferol) 1.25 MG (61632 UT) eCW1 ([facility]) Ergocalciferol 91376 UNT Oral Capsule Vi tamin D (Ergocalciferol) 1.25 MG (79039 UT) Vitamin D (Ergocalciferol) 1.25 MG (87254 UT) 09/24/2020 12:00:0 0 AM EST 1.0 {capsule} active Vitamin D (Ergocal ciferol) 1.25 MG (39420 UT) eCW1 ([facility]) Ergocalciferol 19417 UNT Oral Capsule Vi tamin D (Ergocalciferol) 1.25 MG (22751 UT) Vitamin D (Ergocalciferol) 1.25 MG (96727 UT) 09/24/2020 12:00:0 0 AM EST 1.0 {capsule} active Vitamin D (Ergocal ciferol) 1.25 MG (06749 UT) W[facility] ([facility]) 500 mg 05/11/2020 12:00:00 AM EDT tablet 14 TAKE ONE TABLET BY MOUTH TWICE A DAY FOR 7 DAYS TAKE ONE TABLET BY MOUTH TWICE A DAY FOR 7 DAYS SOLD: 2019 [facility] ferrous sulfate 325 MG Oral Tablet Ferrous Sulfate 325 (65 Fe) MG Ferrous Sulfate 325 (65 Fe) MG 01/30/2020 12:00:00 AM EDT 1.0 {tablet} active Ferrous Sulfate 325 (65 Fe) MG eCW1 ([facility]) ferrous sulfate 325 MG Oral Tablet Ferrous Sulfate 325 (65 Fe) MG Ferrous Sulfate 325 (65 Fe) MG 01/30/2020 12:00:00 AM EDT active 1 tablet eCW1 ([facility]) ferrous sulfate 325 MG Oral Tablet Ferrous Sulfate 325 (65 Fe) MG Ferrous Sulfate 325 (65 Fe) MG 01/30/2020 12:00:00 AM EDT 1.0 {tablet} active Ferrous Sulfate 325 (65 Fe) MG eCW1 ([facility]) ferrous sulfate 325 MG Oral Tablet Ferrous Sulfate 325 (65 Fe) MG Ferrous Sulfate 325 (65 Fe) MG 01/30/2020 12:00:00 AM EDT 1.0 {tablet} active Ferrous Sulfate 325 (65 Fe) MG eCW1 ([facility]) Diazepam 2 MG Oral Tablet Diazepam 01/04/2020 12:00:00 AM EDT active MEDENT ([facility]) Clonidine Hydrochloride 0.1 MG Oral Tablet Clonidine H Cl 0.1 MG Clonidine HCl 0.1 MG 12/07/2019 12:00:00 AM EST 1.0 {tablet} suspe nded Clonidine HCl 0.1 MG eCW1 ([facility]) Clonidine Hydrochloride 0.1 MG Oral Tablet Clonidine H Cl 0.1 MG Clonidine HCl 0.1 MG 12/07/2019 12:00:00 AM EST 1.0 {tablet} activ e Clonidine HCl 0.1 MG eCW1 ([facility]) Clonidine Hydrochloride 0.1 MG Oral Tablet Clonidine H Cl 0.1 MG Clonidine HCl 0.1 MG 12/07/2019 12:00:00 AM EST 1.0 {tablet} suspe nded Clonidine HCl 0.1 MG eCW1 ([facility]) Clonidine Hydrochloride 0.1 MG Oral Tablet Clonidine H Cl 0.1 MG Clonidine HCl 0.1 MG 12/07/2019 12:00:00 AM EST 1.0 {tablet} activ e Clonidine HCl 0.1 MG eCW1 ([facility]) Clonidine Hydrochloride 0.1 MG Oral Tablet Clonidine H Cl 0.1 MG Clonidine HCl 0.1 MG 12/07/2019 12:00:00 AM EST 1.0 {tablet} activ e Clonidine HCl 0.1 MG eCW1 ([facility]) Clonidine Hydrochloride 0.1 MG Oral Tablet Clonidine H Cl 0.1 MG Clonidine HCl 0.1 MG 12/07/2019 12:00:00 AM EST 1.0 {tablet} suspe nded Clonidine HCl 0.1 MG eCW1 ([facility]) Clonidine Hydrochloride 0.1 MG Oral Tablet Clonidine H Cl 0.1 MG Clonidine HCl 0.1 MG 12/07/2019 12:00:00 AM EST 1.0 {tablet} activ e Clonidine HCl 0.1 MG eCW1 ([facility]) Clonidine Hydrochloride 0.1 MG Oral Tablet Clonidine H Cl 0.1 MG Clonidine HCl 0.1 MG 12/07/2019 12:00:00 AM EST 1.0 {tablet} activ e Clonidine HCl 0.1 MG eCW1 ([facility]) Clonidine Hydrochloride 0.1 MG Oral Tablet Clonidine H Cl 0.1 MG Clonidine HCl 0.1 MG 12/07/2019 12:00:00 AM EST 1.0 {tablet} activ e Clonidine HCl 0.1 MG eCW1 ([facility]) Clonidine Hydrochloride 0.1 MG Oral Tablet Clonidine H Cl 0.1 MG Clonidine HCl 0.1 MG 12/07/2019 12:00:00 AM EST active 1 tablet eCW1 ([facility]) Clonidine Hydrochloride 0.1 MG Oral Tablet Clonidine H Cl 0.1 MG Clonidine HCl 0.1 MG 12/07/2019 12:00:00 AM EST 1.0 {tablet} activ e Clonidine HCl 0.1 MG eCW1 ([facility]) Potassium Chloride 10 MEQ Extended Release Oral Capsul e Potassium Chloride 10 MEQ 11/28/2019 12:00:00 AM EST 1.0 {capsule_with_food} active Potassium Chloride 10 MEQ eCW1 ([facility]) Potassium Chloride 10 MEQ Extended Release Oral Capsul e Potassium Chloride 10 MEQ 11/28/2019 12:00:00 AM EST 1.0 {capsule_with_food} active Potassium Chloride 10 MEQ eCW1 ([facility]) Potassium Chloride 10 MEQ Extended Release Oral Capsul e Potassium Chloride 10 MEQ 11/28/2019 12:00:00 AM EST 1.0 {capsule_with_food} active Potassium Chloride 10 MEQ eCW1 ([facility]) Potassium Chloride 10 MEQ Extended Release Oral Capsul e Potassium Chloride 10 MEQ 11/28/2019 12:00:00 AM EST 1.0 {capsule_with_food} active Potassium Chloride 10 MEQ eCW1 ([facility]) Potassium Chloride 10 MEQ Extended Release Oral Capsul e Potassium Chloride 10 MEQ 11/28/2019 12:00:00 AM EST 1.0 {capsule_with_food} active Potassium Chloride 10 MEQ eCW1 ([facility]) Potassium Chloride 10 MEQ Extended Release Oral Capsul e Potassium Chloride 10 MEQ 11/28/2019 12:00:00 AM EST 1.0 {capsule_with_food} active Potassium Chloride 10 MEQ eCW1 ([facility]) Potassium Chloride 10 MEQ Extended Release Oral Capsul e Potassium Chloride 10 MEQ 11/28/2019 12:00:00 AM EST 1.0 {capsule_with_food} active Potassium Chloride 10 MEQ eCW1 ([facility]) Potassium Chloride 10 MEQ Extended Release Oral Capsul e Potassium Chloride 10 MEQ 11/28/2019 12:00:00 AM EST active 1 capsule with food eCW1 ([facility]) Potassium Chloride 10 MEQ Extended Release Oral Capsul e Potassium Chloride 10 MEQ 11/28/2019 12:00:00 AM EST active 1 capsule with food eCW1 ([facility]) Potassium Chloride 10 MEQ Extended Release Oral Capsul e Potassium Chloride 10 MEQ 11/28/2019 12:00:00 AM EST 1.0 {capsule_with_food} active Potassium Chloride 10 MEQ eCW1 ([facility]) Potassium Chloride 10 MEQ Extended Release Oral Capsul e Potassium Chloride 10 MEQ 11/28/2019 12:00:00 AM EST 1.0 {capsule_with_food} active Potassium Chloride 10 MEQ eCW1 ([facility]) Potassium Chloride 10 MEQ Extended Release Oral Capsul e Potassium Chloride 10 MEQ 11/28/2019 12:00:00 AM EST 1.0 {capsule_with_food} active Potassium Chloride 10 MEQ eCW1 ([facility]) Amlodipine 10 MG Oral Tablet AmLODIPine Besylate 10 MG AmLODIPine Besylate 10 MG 11/26/2019 12:00:00 AM EST 1.0 {tablet} activ e AmLODIPine Besylate 10 MG [facility] Vitamin D-3 25 MCG (1000 UT) Vitamin D-3 25 MCG (1000 UT) 12:00:00 AM EST 2.0 {capsule} suspended Vitamin D-3 25 MCG (1000 UT) [facility]CW[facility]) L-Lysine 1000 MG L-Lysine 1000 MG 11/26/2019 12:00:00 AM EST active L-Lysine 1000 MG eCW1 ([facility]) L-Lysine 1000 MG L-Lysine 1000 MG 11/26/2019 12:00:00 AM EST active L-Lysine 1000 MG eCW1 ([facility]) Amlodipine 10 MG Oral Tablet AmLODIPine Besylate 10 MG AmLODIPine Besylate 10 MG 11/26/2019 12:00:00 AM EST 1.0 {tablet} activ e AmLODIPine Besylate 10 MG [facility]CW1 [facility]) Refresh Liquigel 1 % UNK 11/26/2019 12:00:00 AM EST active Refresh Liquigel 1 % [facility]CW[facility]) Amlodipine 10 MG Oral Tablet AmLODIPine Besylate 10 MG AmLODIPine Besylate 10 MG 11/26/2019 12:00:00 AM EST active 1 tablet eCW1 [facility]) Vitamin D-3 25 MCG (1000 UT) Vitamin D-3 25 MCG (1000 UT) 12:00:00 AM EST active 2 capsule eCW1 ([facility]) Vitamin D-3 25 MCG (1000 UT) Vitamin D-3 25 MCG (1000 UT) 12:00:00 AM EST 2.0 {capsule} suspended Vitamin D-3 25 MCG (1000 UT) eCW1 [facility]) Vitamin D-3 25 MCG (1000 UT) Vitamin D-3 25 MCG (1000 UT) 12:00:00 AM EST 2.0 {capsule} active Vitamin D- 3 25 MCG (1000 UT) eCW1 [facility]) Vitamin D-3 25 MCG (1000 UT) Vitamin D-3 25 MCG (1000 UT) 12:00:00 AM EST 2.0 {capsule} active Vitamin D- 3 25 MCG (1000 UT) eCW1 [facility]) Meclizine Hydrochloride 25 MG Oral Tablet Meclizine HC l 25 MG Meclizine HCl 25 MG 11/26/2019 12:00:00 AM EST 1.0 {tablet_as_needed} active Meclizine HCl 25 MG eCW1 [facility]) Refresh Liquigel 1 % UNK 11/26/2019 12:00:00 AM EST suspended Refresh Liquigel 1 % eCW1 [facility]) Refresh Liquigel 1 % UNK 11/26/2019 12:00:00 AM EST active Refresh Liquigel 1 % eCW1 [facility]) Refresh Liquigel 1 % UNK 11/26/2019 12:00:00 AM EST active Refresh Liquigel 1 % eCW1 [facility]) atorvastatin 20 MG Oral Tablet Atorvastatin Calcium 20 MG Atorvastatin Calcium 20 MG 11/26/2019 12:00:00 AM EST 1.0 {tablet} activ e Atorvastatin Calcium 20 MG eCW1 ([facility]) L-Lysine 1000 MG L-Lysine 1000 MG 11/26/2019 12:00:00 AM EST active L-Lysine 1000 MG eCW1 ([facility]) Meclizine Hydrochloride 25 MG Oral Tablet Meclizine HC l 25 MG Meclizine HCl 25 MG 11/26/2019 12:00:00 AM EST 1.0 {tablet_as_needed} active Meclizine HCl 25 MG eCW1 [facility]) Meclizine Hydrochloride 25 MG Oral Tablet Meclizine HC l 25 MG Meclizine HCl 25 MG 11/26/2019 12:00:00 AM EST active 1 tablet as needed eCW1 ([facility]) Refresh Liquigel 1 % UNK 11/26/2019 12:00:00 AM EST suspended Refresh Liquigel 1 % eCW1 [facility]) Refresh Liquigel 1 % UNK 11/26/2019 12:00:00 AM EST active Refresh Liquigel 1 % eCW1 [facility]) Refresh Liquigel 1 % UNK 11/26/2019 12:00:00 AM EST active Refresh Liquigel 1 % eCW1 [facility]) atorvastatin 20 MG Oral Tablet Atorvastatin Calcium 20 MG Atorvastatin Calcium 20 MG 11/26/2019 12:00:00 AM EST active 1 tablet eCW1 [facility]) Amlodipine 10 MG Oral Tablet AmLODIPine Besylate 10 MG AmLODIPine Besylate 10 MG 11/26/2019 12:00:00 AM EST 1.0 {tablet} activ e AmLODIPine Besylate 10 MG eCW1 [facility]) atorvastatin 20 MG Oral Tablet Atorvastatin Calcium 20 MG Atorvastatin Calcium 20 MG 11/26/2019 12:00:00 AM EST 1.0 {tablet} activ e Atorvastatin Calcium 20 MG eCW1 ([facility]) Vitamin D-3 25 MCG (1000 UT) Vitamin D-3 25 MCG (1000 UT) 12:00:00 AM EST active 2 capsule eCW1 ([facility]) Meclizine Hydrochloride 25 MG Oral Tablet Meclizine HC l 25 MG Meclizine HCl 25 MG 11/26/2019 12:00:00 AM EST 1.0 {tablet_as_needed} active Meclizine HCl 25 MG eCW1 [facility]) atorvastatin 20 MG Oral Tablet Atorvastatin Calcium 20 MG Atorvastatin Calcium 20 MG 11/26/2019 12:00:00 AM EST active 1 tablet eCW1 [facility]) Amlodipine 10 MG Oral Tablet AmLODIPine Besylate 10 MG AmLODIPine Besylate 10 MG 11/26/2019 12:00:00 AM EST 1.0 {tablet} activ e AmLODIPine Besylate 10 MG eCW1 [facility]) L-Lysine 1000 MG L-Lysine 1000 MG 11/26/2019 12:00:00 AM EST active L-Lysine 1000 MG eCW1 ([facility]) Refresh Liquigel 1 % UNK 11/26/2019 12:00:00 AM EST active Refresh Liquigel 1 % eCW1 [facility]) atorvastatin 20 MG Oral Tablet Atorvastatin Calcium 20 MG Atorvastatin Calcium 20 MG 11/26/2019 12:00:00 AM EST 1.0 {tablet} activ e Atorvastatin Calcium 20 MG eCW1 ([facility]) L-Lysine 1000 MG L-Lysine 1000 MG 11/26/2019 12:00:00 AM EST active L-Lysine 1000 MG eCW1 ([facility]) Vitamin D-3 25 MCG (1000 UT) Vitamin D-3 25 MCG (1000 UT) 12:00:00 AM EST 2.0 {capsule} active Vitamin D- 3 25 MCG (1000 UT) eCW1 ([facility]) Meclizine Hydrochloride 25 MG Oral Tablet Meclizine HC l 25 MG Meclizine HCl 25 MG 11/26/2019 12:00:00 AM EST active 1 tablet as needed eCW1 [facility]) Meclizine Hydrochloride 25 MG Oral Tablet Meclizine HC l 25 MG Meclizine HCl 25 MG 11/26/2019 12:00:00 AM EST 1.0 {tablet_as_needed} active Meclizine HCl 25 MG eCW1 [facility]) Refresh Liquigel 1 % UNK 11/26/2019 12:00:00 AM EST active Refresh Liquigel 1 % eCW1 [facility]) Amlodipine 10 MG Oral Tablet AmLODIPine Besylate 10 MG AmLODIPine Besylate 10 MG 11/26/2019 12:00:00 AM EST 1.0 {tablet} activ e AmLODIPine Besylate 10 MG eCW1 ([facility]) Meclizine Hydrochloride 25 MG Oral Tablet Meclizine HC l 25 MG Meclizine HCl 25 MG 11/26/2019 12:00:00 AM EST 1.0 {tablet_as_needed} active Meclizine HCl 25 MG eCW1 ([facility]) Amlodipine 10 MG Oral Tablet AmLODIPine Besylate 10 MG AmLODIPine Besylate 10 MG 11/26/2019 12:00:00 AM EST active 1 tablet eCW1 ([facility]) Meclizine Hydrochloride 25 MG Oral Tablet Meclizine HC l 25 MG Meclizine HCl 25 MG 11/26/2019 12:00:00 AM EST 1.0 {tablet_as_needed} active Meclizine HCl 25 MG eCW1 ([facility]) L-Lysine 1000 MG L-Lysine 1000 MG 11/26/2019 12:00:00 AM EST active as directed eCW1 ([facility]) L-Lysine 1000 MG L-Lysine 1000 MG 11/26/2019 12:00:00 AM EST active L-Lysine 1000 MG eCW1 ([facility]) Vitamin D-3 25 MCG (1000 UT) Vitamin D-3 25 MCG (1000 UT) 12:00:00 AM EST 2.0 {capsule} suspended Vitamin D-3 25 MCG (1000 UT) eCW1 ([facility]) Refresh Liquigel 1 % UNK 11/26/2019 12:00:00 AM EST active Refresh Liquigel 1 % eCW1 ([facility]) atorvastatin 20 MG Oral Tablet Atorvastatin Calcium 20 MG Atorvastatin Calcium 20 MG 11/26/2019 12:00:00 AM EST 1.0 {tablet} activ e Atorvastatin Calcium 20 MG eCW1 ([facility]) Refresh Liquigel 1 % UNK 11/26/2019 12:00:00 AM EST active Refresh Liquigel 1 % eCW1 ([facility]) Meclizine Hydrochloride 25 MG Oral Tablet Meclizine HC l 25 MG Meclizine HCl 25 MG 11/26/2019 12:00:00 AM EST 1.0 {tablet_as_needed} active Meclizine HCl 25 MG eCW1 ([facility]) L-Lysine 1000 MG L-Lysine 1000 MG 11/26/2019 12:00:00 AM EST active L-Lysine 1000 MG eCW1 ([facility]) atorvastatin 20 MG Oral Tablet Atorvastatin Calcium 20 MG Atorvastatin Calcium 20 MG 11/26/2019 12:00:00 AM EST active 1 tablet eCW1 [facility]) Amlodipine 10 MG Oral Tablet AmLODIPine Besylate 10 MG AmLODIPine Besylate 10 MG 11/26/2019 12:00:00 AM EST active 1 tablet eCW1 [facility]) L-Lysine 1000 MG L-Lysine 1000 MG 11/26/2019 12:00:00 AM EST active L-Lysine 1000 MG eCW1 ([facility]) Refresh Liquigel 1 % UNK 11/26/2019 12:00:00 AM EST active as directed eCW1 ([facility]) Vitamin D-3 25 MCG (1000 UT) Vitamin D-3 25 MCG (1000 UT) 12:00:00 AM EST 2.0 {capsule} active Vitamin D- 3 25 MCG (1000 UT) eCW1 ([facility]) L-Lysine 1000 MG L-Lysine 1000 MG 11/26/2019 12:00:00 AM EST active as directed eCW1 ([facility]) L-Lysine 1000 MG L-Lysine 1000 MG 11/26/2019 12:00:00 AM EST active L-Lysine 1000 MG eCW1 ([facility]) Meclizine Hydrochloride 25 MG Oral Tablet Meclizine HC l 25 MG Meclizine HCl 25 MG 11/26/2019 12:00:00 AM EST 1.0 {tablet_as_needed} active Meclizine HCl 25 MG eCW1 [facility]) atorvastatin 20 MG Oral Tablet Atorvastatin Calcium 20 MG Atorvastatin Calcium 20 MG 11/26/2019 12:00:00 AM EST 1.0 {tablet} activ e Atorvastatin Calcium 20 MG eCW1 ([facility]) atorvastatin 20 MG Oral Tablet Atorvastatin Calcium 20 MG Atorvastatin Calcium 20 MG 11/26/2019 12:00:00 AM EST 1.0 {tablet} activ e Atorvastatin Calcium 20 MG eCW1 ([facility]) Refresh Liquigel 1 % UNK 11/26/2019 12:00:00 AM EST active as directed eCW1 ([facility]) Meclizine Hydrochloride 25 MG Oral Tablet Meclizine HC l 25 MG Meclizine HCl 25 MG 11/26/2019 12:00:00 AM EST 1.0 {tablet_as_needed} active Meclizine HCl 25 MG eCW1 ([facility]) Vitamin D-3 25 MCG (1000 UT) Vitamin D-3 25 MCG (1000 UT) 12:00:00 AM EST 2.0 {capsule} active Vitamin D- 3 25 MCG (1000 UT) eCW1 ([facility]) L-Lysine 1000 MG L-Lysine 1000 MG 11/26/2019 12:00:00 AM EST active L-Lysine 1000 MG eCW1 ([facility]) Vitamin D-3 25 MCG (1000 UT) Vitamin D-3 25 MCG (1000 UT) 12:00:00 AM EST 2.0 {capsule} active Vitamin D- 3 25 MCG (1000 UT) eCW1 ([facility]) Vitamin D-3 25 MCG (1000 UT) Vitamin D-3 25 MCG (1000 UT) 12:00:00 AM EST 2.0 {capsule} active Vitamin D- 3 25 MCG (1000 UT) eCW1 ([facility]) Refresh Liquigel 1 % UNK 11/26/2019 12:00:00 AM EST active Refresh Liquigel 1 % eCW1 [facility]) Amlodipine 10 MG Oral Tablet AmLODIPine Besylate 10 MG AmLODIPine Besylate 10 MG 11/26/2019 12:00:00 AM EST 1.0 {tablet} activ e AmLODIPine Besylate 10 MG eCW1 [facility]) Meclizine Hydrochloride 25 MG Oral Tablet Meclizine HC l 25 MG Meclizine HCl 25 MG 11/26/2019 12:00:00 AM EST 1.0 {tablet_as_needed} active Meclizine HCl 25 MG eCW1 [facility]) Hydrocortisone 25 MG/ML Topical Cream [Anusol HC] Anus ol-HC 2.5 % Anusol-HC 2.5 % 11/13/2019 12:00:00 AM EST active 1 application eCW1 [facility]) Anusol 1 % UNK 10/23/2019 12:00:00 AM EST active 1 application eCW1 ([facility]) Anusol 1 % UNK 10/23/2019 12:00:00 AM EST active 1 application eCW1 [facility]) Insurance Providers Payer name Policy type / Coverage type Policy ID Covered libertarian ID Covered libertarian's relationship to story Policy Story Plan Information EMEDNY [id number] SP [id number] [facility] MCRO [id number] SP [id number] [facility] O [id number] S [id number] MEDICAID M [id number] S [id number] [facility] COMM[facility]ITY PLAN MCDHMO [id number] SP [id number] MEDICARE [id number] SP [id number] [facility] [id number] S [id number] UNHC CP DUAL COMPL-CL[place] [id number] 18 [id number] MEDICAID [id number] SP [id number] MEDICARE [id number] SP [id number] [facility] [id number] SP [id number] [place] [id number] 18 [id number] UNHC CP DUAL COMPLETE -CLINIC [id number] 18 [id number] MEDICAID -PHYSICIAN [id number] 8 [id number] UNHC CP DUAL COMP -PHYSICIAN [id number] 18 [id number] UNHC CP DUAL COMPLETE -CLINIC [id number] 18 [id number] [place]ID [facility] [id number] B [id number] MEDICARE [id number] SP [id number] ANSI-Not a Secondary Insurance [id number] ANSI-Medicare Part B [id number] ANSI-Medicaid [id number] ANSI-Medicaid [id number] ANSI-Not a Secondary Insurance [id number] ANSI-Medicare Part B [id number] ANSI-Not a Secondary Insurance [id number] ANSI-Medicaid [id number] ANSI-Medicare Part B [id number] ANSI-Medicare Part B [id number] ANSI-Medicaid [id number] ANSI-Not a Secondary Insurance [id number] ANSI-Medicaid [id number] ANSI-Not a Secondary Insurance [id number] ANSI-Medicare Part B [id number] ANSI-Not a Secondary Insurance [id number] ANSI-Medicaid [id number] ANSI-Medicare Part B [id number] ANSI-Medicare Part B [id number] ANSI-Not a Secondary Insurance [id number] ANSI-Medicaid [id number] ANSI-Medicare Part B [id number] ANSI-Medicaid [id number] ANSI-Not a Secondary Insurance [id number] ANSI-Medicare Part B [id number] ANSI-Medicaid [id number] ANSI-Not a Secondary Insurance [id number] ANSI-Medicare Part B [id number] ANSI-Medicaid [id number] ANSI-Not a Secondary Insurance [id number] MEDICARE COMPLETE [id number] SP [id number] ANSI-Medicaid [id number] ANSI-Not a Secondary Insurance [id number] ANSI-Medicare Part B [id number] Medicaid Medicaid [id number] Self [id number] [facility] Dual Plan Commercial [id number] Self [id number] ANSI-Not a Secondary Insurance [id number] ANSI-Medicaid [id number] ANSI-Medicare Part B [id number] ANSI-Medicare Part B [id number] ANSI-Not a Secondary Insurance [id number] ANSI-Medicaid [id number] ANSI-Medicare Part B [id number] ANSI-Medicaid [id number] ANSI-Not a Secondary Insurance [id number] ANSI-Medicare Part B [id number] ANSI-Medicaid [id number] ANSI-Not a Secondary Insurance [id number] ANSI-Medicare Part B [id number] ANSI-Not a Secondary Insurance [id number] ANSI-Medicaid [id number] ANSI-Not a Secondary Insurance [id number] ANSI-Medicare Part B [id number] ANSI-Medicaid [id number] ANSI-Medicaid [id number] ANSI-Not a Secondary Insurance [id number] ANSI-Medicare Part B [id number] ANSI-Medicaid [id number] ANSI-Not a Secondary Insurance [id number] ANSI-Medicare Part B [id number] ANSI-Not a Secondary Insurance [id number] ANSI-Medicare Part B [id number] ANSI-Medicaid [id number] ANSI-Medicaid [id number] ANSI-Not a Secondary Insurance [id number] ANSI-Medicare Part B [id number] ANSI-Medicare Part B [id number] ANSI-Not a Secondary Insurance [id number] ANSI-Medicaid [id number] ANSI-Not a Secondary Insurance [id number] ANSI-Medicaid [id number] ANSI-Medicare Part B [id number] ANSI-Not a Secondary Insurance [id number] ANSI-Medicaid [id number] ANSI-Medicare Part B [id number] ANSI-Medicare Part B [id number] ANSI-Not a Secondary Insurance [id number]-m6w0-6o06-150q-q3b72 [id number]-t4n1-3b68-158l-[id number] ANSI-Medicaid [id number] ANSI-Medicaid [id number] ANSI-Medicare Part B [id number] ANSI-Not a Secondary Insurance [id number]-884a-242o-8i29g [id number] [id number]-901q-319m-8n63eo4j521g ANSI-Not a Secondary Insurance [id number]-wr26-3pf0-8013-1s8w0 [id number] 358dypw3-[id number] ANSI-Medicaid [id number] ANSI-Medicare Part B [id number] Medicaid Medicaid [id number] Self [id number] Medicare Medicare Primary [id number] Self [id number] ANSI-Not a Secondary Insurance [id number] [id number]-[id number] ANSI-Medicare Part B [id number] ANSI-Medicaid [id number] ANSI-Medicaid [id number] ANSI-Medicare Part B [id number] ANSI-Not a Secondary Insurance [id number]-4iw6-d22o-96pjg [id number]-4ad4-z48o-[id number] ANSI-Not a Secondary Insurance [id number]-mn1k-6v34-5n7y-3lq5g [id number] 328b619q-go1q-3q83-8p9g-4ff5xt61kif2 ANSI-Medicare Part B [id number] ANSI-Medicaid [id number] ANSI-Medicare Part B [id number] ANSI-Medicaid [id number] ANSI-Not a Secondary Insurance [id number]-ip98-233f4 m8hu39u v61mssa3-06s8-4199-zt09-896q0g9pq89l ANSI-Medicaid [id number] ANSI-Not a Secondary Insurance [id number]-[id number]-l732-[id number] [id number] 5ixd02am-x0s3-2b20-y917-e7a96l21c3jj ANSI-Medicare Part B [id number] ANSI-Medicaid [id number] ANSI-Medicare Part B [id number] ANSI-Not a Secondary Insurance 900ke11x-47r5-2061-l139-025g0 [id number] [id number]-71j8-2978-[id number] ANSI-Not a Secondary Insurance [id number]-g842-10l4-2niq-24v61 [id number]-v026-07u9-6aje-[id number] ANSI-Medicare Part B [id number] ANSI-Medicaid [id number] ANSI-Medicaid [id number] ANSI-Not a Secondary Insurance [id number]-cv7c-1x58-7se1-37d77 [id number]-uk1y-[id number] ANSI-Medicare Part B [id number] ANSI-Medicaid [id number] ANSI-Medicare Part B [id number] ANSI-Medicaid [id number] ANSI-Medicaid [id number] ANSI-Medicare Part B [id number] ANSI-Medicaid [id number] ANSI-Medicaid [id number] ANSI-Medicaid [id number] ANSI-Medicare Part B [id number] ANSI-Medicaid [id number] ANSI-Medicare Part B [id number] ANSI-Medicaid [id number] ANSI-Medicare Part B [id number] ANSI-Medicaid [id number] ANSI-Medicaid [id number] ANSI-Medicaid [id number] ANSI-Medicaid [id number] ANSI-Medicare Part B [id number] ANSI-Medicaid [id number] ANSI-Medicaid [id number] ANSI-Medicare Part B [id number] ANSI-Medicaid [id number] ANSI-Medicare Part B [id number] ANSI-Medicaid [id number] ANSI-Medicaid [id number] ANSI-Medicare Part B [id number] ANSI-Medicaid [id number] ANSI-Medicare Part B [id number] ANSI-Medicaid [id number] ANSI-Medicaid [id number] ANSI-Medicaid [id number] ANSI-Medicaid [id number] ANSI-Medicare Part B [id number] ANSI-Medicaid [id number] ANSI-Medicaid [id number] ANSI-Medicaid [id number] ANSI-Medicaid [id number] ANSI-Medicaid [id number] ANSI-Medicaid [id number] ANSI-Medicaid [id number] ANSI-Medicaid [id number] ANSI-Medicaid [id number] ANSI-Medicaid [id number] ANSI-Not a Secondary Insurance [id number] ANSI-Medicaid [id number] [place] Med[place] [id number] Self [id number] Evercare Medigap Part B [id number] Self [id number] United Healthcare (MCR) Medigap Part B [id number] Self [id number] United Healthcared Dual Comp Commercial [id number] Self [id number] [employer] Self (WC) Workers Compensation [id number] Self [id number] United Healthcare (Medicare) Medigap Part B [id number] Self [id number] United Healthcare(Medicare) Medigap Part B [id number] Self [id number] Medicaid [place] Medigap Part B [id number] Self [id number] [facility] [place] [id number] 18 [id number] [facility] [id number] [place] Med[place] B [id number] Self [id number] Evercare Medigap Part B [id number] Self [id number] United Healthcare ([facility]) Medigap Part B [id number] Self [id number] [place] Part [place] [id number] Self [id number] Medicare - NGS Medicare Primary [id number] Self [id number] Evercare Commercial [id number] Self [id number] Unitedhealthcare Medicare Commercial [id number] Self [id number] [facility] UNITED MEDICARE COMPLETE G [id number] Self [id number] MEDICAID M [id number] Self [id number] Medicare [facility] Medigap Part B [id number] Self [id number] Evercare Medigap Part B [id number] Self [id number] United Healthcare ([facility]) Medigap Part B [id number] Self [id number] United Healthcared Dual Comp Commercial [id number] Self [id number] MEDICARE COMPLETE [id number] SP [id number] MEDICARE COMPLETE [id number] SP [id number] [place] Med[place] Part B Self [employer] Medigap Part B Self United Healthcare (Medicare) Medigap Part B [id number] Self [id number] United Healthcare(Medicare) Medigap Part B Self Medicaid [place] Med[place]ap Part B Self United Healthcare (MCR) Commercial Self [facility] UNITED HEALTH CARE U [id number] Self [id number] MEDICAID M [id number] Self [id number] VNA MEDICAID MANAGED I [id number] Self [id number] MEDICARE COMPLETE [id number] SP [id number] MEDICARE COMPLETE-UHC O [id number] S [id number] MEDICARE [id number] SP [id number] MEDICARE COMPLETE [id number] SP [id number] MEDICARE COMPLETE-UHC O [id number] S [id number] [facility] O [id number] S [id number] MEDICAID -O/P [id number] [facility] UN MEDICARE -O/P [id number] 18 [id number] MEDICARE COMPLETE-UHC P [id number] S [id number] MEDICARE [id number] SP [id number] MEDICARE COMPLETE [id number] SP [id number] MEDICARE COMPLETE [id number] SP [id number] MEDICARE [id number] SP [id number] D MEDICARE COMPLETE-UHC P [id number] S [id number] Problems, Conditions, and Diagnoses Code Display Name Description Problem Type Effective Dates Data Source(s) E55.9 69273901 Vitamin D insufficiency Problem 09/24/2020 1 2:00:00 AM EST [facility] E88.09 54088804 Hyperproteinemia Problem 09/24/2020 12:00:00 AM EST [facility]CW1 [facility]) M81.0 63364957 Osteoporosis, unspec ified osteoporosis type, unspecified pathological fracture presence Problem 08/22/2020 12:00:00 AM EST eC W1 [facility]) M06.00 190432651 Seronegative rheumatoid arthritis Problem 08/22/2020 12:00:00 AM EST eCW1 ([facility]) R53.82 49885366 Chronic fatigue Problem 08/22/2020 12:00:00 AM EST eCW1 ([facility]) [id number] Essential hypertension Essential hypertension Problem 01/03/2020 12:00:00 AM EDT MEDSHEYLA ([facility] ) 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 Nail dystrophy Diagnosis 12/10/2019 02:30: 00 PM EDT [facility] E59799 Pain in left foot Pain in left foot Diagnosis 12/10/2019 02:30:00 PM EDT [facility] M2041 Other hammer toe(s) (acquired), right fo ot Other hammer toe(s) (acquired), right foot Diagnosis 12/10/2019 02:30:00 PM EDT [facility] L84 Corns and callosities Corns and callosities Diagnosis 12/10/2019 02:30:00 PM EDT [facility] 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 Diagnosis 12/10/2019 02:3 0:00 PM EDT [facility] 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 Diagnosis 12/10/2019 02:30:00 PM EDT [facility] Surgeries/Procedures Procedure Description Date Indications Data Source(s) TSTG ANS FUNCJ CARDIOVAGAL INNERVAJ PARASYMP 0 12:00:00 AM EDT MEDENT ([facility] ) TSTG ANS FUNCJ CARDIOVAGAL INNERVAJ PARASYMP 0 12:00:00 AM EDT MED[facility] ([facility] ) TESTING AUTONOMIC NERVOUS SYSTEM FUNCTION 02/15/2020 1 2:00:00 AM EDT [facility] ([facility] ) TESTING AUTONOMIC NERVOUS SYSTEM FUNCTION 02/15/2020 1 2:00:00 AM EDT [facility] ([facility] ) Magnetic Resonance Angiogtaphy Head W/O Contrast Material(S) 01/30/2020 12:00:00 AM EDT [facility] ([facility] Magnetic Resonance Angiogtaphy Head W/O Contrast Material(S) 01/30/2020 12:00:00 AM EDT [facility] ([facility]) Magnetic Resonance Angiography Neck W/O Contrast Materials 01/30/2020 12:00:00 AM EDT [facility] ([facility]) Magnetic Resonance Angiography Neck W/O Contrast Materials 01/30/2020 12:00:00 AM EDT [facility] ([facility] ) MRI BRAIN BRAIN STEM W/O CONTRAST MATERIAL 01/30/2020 12:00:00 AM EDT [facility] ([facility]) MRI BRAIN BRAIN STEM W/O CONTRAST MATERIAL 01/30/2020 12:00:00 AM EDT [facility] ([facility]) RADEX ANKLE COMPLETE MINIMUM 3 VIEWS 01/03/2020 12:00: 00 AM EDT [facility] ([facility]) RADEX FOOT COMPLETE MINIMUM 3 VIEWS 01/03/2020 12:00:0 0 AM EDT [facility] ([facility]) Office Visit, Est Pt., Level 2 FC 12/07/2019 12:00:00 AM EST [facility] Office Visit, Est Pt., Level 4 PC 12/07/2019 12:00:00 AM EST eCW1 ([facility]) RADEX ANKLE COMPLETE MINIMUM 3 VIEWS 11/19/2019 12:00: 00 AM EST [facility] ([facility]) RADEX FOOT COMPLETE MINIMUM 3 VIEWS 11/19/2019 12:00:0 0 AM EST [facility] ([facility]) Office Visit, Est Pt., Level 3 PC 10/23/2019 12:00:00 AM EST eCW1 [facility]) Results ID Date Data Source TSH 10/01/2020 12:00:00 AM EST eCW1 ([facility]) Name Value Range Interpretation Code Description Data Marti rce(s) Supporting Document(s) 1.250 0.358-3.740 THYROID STIMULATING HORM ONE eCW1 ([facility]) ID Date Data Source LIPID PANEL (CARDIAC RISK) 10/01/2020 12:00:00 AM EST eCW1 ( [facility]) Name Value Range Interpretation Code Description Data Marti rce(s) Supporting Document(s) Triglyceride [Mass/volume] in Serum or Plasma by calculation 106 <150 TRIGLYCERIDES LEVEL eCW1 ([facility]) Cholesterol [Moles/volume] in Serum or Plasma 170 <200 CHOLESTEROL LEVEL eCW1 ([facility]) Cholesterol in LDL [Mass/volume] in Serum or Plasma by calculation 72 <100 LDL CHOLESTEROL eCW1 ([facility]) Cholesterol in HDL [Moles/volume] in Serum or Plasma 77 >40 HDL CHOLESTEROL eCW1 ([facility]) 93 NON-HDL-C eCW1 ([facility]) 2.207 <5 CHOLESTEROL RISK RATIO eCW1 (S [facility]) ID Date Data Source [id number] 06/04/2020 03:18:00 PM EDT [facility] ([facility]) Name Value Range Interpretation Code Description Data Marti rce(s) Supporting Document(s) Antinuclear Antibodies Direct Laboratory test result MEDENT ([facility]) Performed at: [facility] [id number] Compliance Quality Performance Analyst: Renee Camp MD, Phone: [phone] ID Date Data Source [id number] 06/04/2020 03:18:00 PM EDT [facility] ([facility]) Name Value Range Interpretation Code Description Data Marti rce(s) Supporting Document(s) Erythrocyte sedimentation rate by 2H Westergren method 47 mm/hr 0-3 0 [facility] ([facility]) ID Date Data Source [id number] 01/08/2020 12:00:00 AM EDT [facility] Noemi Calvo MD Patient Name: LIBRA ROD [facility] Date of : [address] [address] Date of Exam: 01/08/2020#: Fax: [phone] EXAM: MRI ANKLE RIGHT WITHOUT CONTRASTCLINICAL INFORMATION: Persistent pain after trauma one year ago.3T multiplanar MRI imaging of the right ankle was obtained using varioussequences.There are no prior right ankle MRI's for comparison. Prior plain filmexamination of 01/13/2019 was reviewed showing a tiny distal fibular chipfracture.The tendons of the tibialis anterior, extensor hallucis and extensordigitorum muscles are intact and of normal appearing low signal throughout. A subtle amount of increased T2 signal is seen surrounding the extensorhallucis tendon. The tendons of the tibialis posterior, flexor digitorumand flexor hallucis muscles are intact and of normal appearing low signalthroughout. The peroneal tendons are intact and of normal appearing lowsignal throughout. Small amount of fluid surrounds the very distal aspectof the peroneus longus tendon. The tendon itself is intact and of normalappearing low signal throughout. The Achilles tendon is intact and ofnormal appearing low signal throughout. The anterior andposterior/inferior tibiofibular ligaments are intact. The anterior andposterior talofibular ligaments are intact. The calcaneofibular ligamentis intact. The ligaments within the sinus tarsi are normal and the sinustarsi fat signal is preserved. The deltoid ligament complex is intact.The chondral surfaces of the talar dome and tibial plafond are smooth andwithout abnormal chondral or subchondral signal. There is no ankle jointeffusion. The subtalar joints are within normal limits. There is noevidence of a heel valgus deformity. The marrow signal is within normallimits.There are kyht-qo-kjiddbhq degenerative changes seen involving the imagedportion of the mid-foot.IMPRESSION:1. Findings suggestive of tenosynovitis of the peroneus longus tendon asdescribed above.2. Degenerative changes.3. No evidence of acute internal derangement.Accredited by the [employer] in [place].LULA Da Silva/Kyle you for referring PADMAJA ROD to our office. Electronically Signed - HUA NG DO 01/09/20 8:07 Name Value Range Interpretation Code Description Data Marti rce(s) Supporting Document(s) ID Date Data Source [id number] 11/19/2019 12:00:00 AM EST [facility] Shirlene Novak DC Patient Name: FIONA ROD [facility] Date of : 1930[place] [address] Date of Exam: 11/19/2019PH#: Fax: [phone] EXAM: THORACIC SPINE (2 VIEW) XRAYCLINICAL INFORMATION: Chronic pain.Three views. These images were obtained using digital radiography.There is demineralization. There is scoliosis convex right at thethoracolumbar junction.There is kyphosis.Vertebral body heights are normal. There is degenerative disc diseasethroughout the thoracic spine.The pedicles are unremarkable.IMPRESSION:Demineralization, scoliosis, multi-level degenerative disc disease,kyphosis.RACQUEL Gonzalez/Kyle you for referring PADMAJA ROD to our office. Electronically Signed - ELISABETH YUAN MD 11/20/19 9:58 Name Value Range Interpretation Code Description Data Marti rce(s) Supporting Document(s) ID Date Data Source [id number] 11/19/2019 12:00:00 AM EST [facility] Shirlene Novak [place] Patient Name: FIONA ROD [facility] Date of : [address] [address] Date of Exam: 11/19/2019PH#: Fax: [phone] EXAM: CERVICAL SPINE (2 OR 3 VIEWS) XRAYCLINICAL INFORMATION: Chronic pain.Two views. AP and lateral projections. These images were obtained usingdigital radiography.On the lateral view, C1 through C4 are visualized. C5, C6, C7 and T1 areobscured by the shoulders.There is demineralization. There is advanced degenerative disc disease atC3-4. I suspect there is a few millimeters of anterolisthesis of C4 inrelation to C3.Further evaluation is not possible on views provided.RACQUEL Gonzalez/Kyle you for referring PADMAJA ROD to our office. Electronically Signed - ELISABETH YUAN MD 11/20/19 9:58 Name Value Range Interpretation Code Description Data Marti rce(s) Supporting Document(s) ID Date Data Source [id number] 11/19/2019 12:00:00 AM EST [facility] Shirlene Novak DC Patient Name: FIONA ROD [facility] Date of : [address] [address] Date of Exam: 11/19/2019#: Fax: [phone] EXAM: LUMBSACRAL SPINE (2 OR 3 VIEWS) XRAYCLINICAL INFORMATION: Chronic pain.Two views with the patient standing, AP and lateral projections. Theseimages were obtained using digital radiography.Comparison is 01/13/19, five views.There is lumbar scoliosis convex right and there is diffusedemineralization.There is advanced degenerative disc disease at every lumbar level withlarge bridging osteophytes and disc space narrowing.Vertebral b taz heights are normal.There is no listhesis.There is bilateral hip osteoarthritis.The right upper quadrant surgical clip and right upper quadrant calculusidentified on the previous study are not visualized on the current study.There is a 1.2 cm calcification projected above the left iliac wing today,not definitely present previously.IMPRESSION:Demineralization, scoliosis, advanced multi-level degenerative discdisease.Bilateral hip osteoarthritis.RACQUEL Gonzalez/Kyle you for referring PADMAJA ROD to our office. Electronically Signed - ELISABETH YUAN MD 11/20/19 9:57 Name Value Range Interpretation Code Description Data Marti rce(s) Supporting Document(s) ID Date Data Source PTH INTACT 10/23/2019 12:00:00 AM EST eCW1 ([facility]) Name Value Range Interpretation Code Description Data Marti rce(s) Supporting Document(s) 52.3 18.5-88.0 PTH INTACT eCW1 ([facility]) ID Date Data Source MAGNESIUM LEVEL 10/23/2019 12:00:00 AM EST eCW1 ([facility]) Name Value Range Interpretation Code Description Data Marti rce(s) Supporting Document(s) 2.4 1.8-2.4 MAGNESIUM LEVEL eCW1 ([facility]) ID Date Data Source Comprehensive Metabolic Profile (CMP) 10/23/2019 12:00:00 AM EST eCW1 [facility] Name Value Range Interpretation Code Description Data Marti rce(s) Supporting Document(s) 1.26 0.55-1.30 CREATININE FOR GFR eCW1 ([facility]) 94 70-100 GLUCOSE, FASTING eCW1 ([facility]) 27 7-18 BLOOD UREA NITROGEN eCW1 ([facility]) 4.8 3.5-5.1 POTASSIUM SERUM eCW1 ([facility]) 140 136-145 SODIUM LEVEL eCW1 ([facility]) 103 98-107 CHLORIDE LEVEL eCW1 ([facility]) 42.7 >32 GLOMERULAR FILTRATION RATE eCW 1 ([facility]) 31 21-32 CARBON DIOXIDE LEVEL eCW1 ([facility]) 10.4 8.8-10.2 CALCIUM LEVEL eCW1 ([facility]) 20 7-37 AST/SGOT eCW1 ([facility]) 6.9 6.4-8.2 TOTAL PROTEIN eCW1 ([facility]) 91 45-117 ALKALINE PHOSPHATASE eCW1 ([facility]) 19 12-78 ALT/SGPT eCW1 ([facility]) 0.4 0.2-1.0 BILIRUBIN,TOTAL eCW1 ([facility]) 1.16 1.00-1.93 ALBUMIN/GLOBULIN RATIO eCW1 ([facility]) 3.7 3.2-5.2 ALBUMIN eCW1 ([facility]) ID Date Data Source CBC - Complete Blood Count 10/23/2019 12:00:00 AM EST eCW1 ( [facility]) Name Value Range Interpretation Code Description Data Marti rce(s) Supporting Document(s) 39.8 36.0-47.0 HEMATOCRIT eCW1 ([facility]) 12.6 12.0-15.5 HEMOGLOBIN eCW1 ([facility]) 6.8 4.0-10.0 WHITE BLOOD COUNT eCW1 ([facility]) 4.11 4.00-5.40 RED BLOOD COUNT eCW1 ([facility]) 30.7 27.0-33.0 MEAN CORPUSCULAR HEMOGLOB IN eCW1 ([facility]) 13.8 11.5-14.5 RED CELL DISTRIBUTION WID TH eCW1 ([facility]) 96.8 80.0-96.0 MEAN CORPUSCULAR VOLUME e CW1 ([facility]) 31.7 32.0-36.5 MEAN CORPUSCULAR HGB CONC eCW1 ([facility]) 237 150-450 PLATELET COUNT, AUTOMATED eCW1 ([facility]) Procedure Social History Code Duration Value Status Description Data Source(s ) Smoking 08/01/2020 12:00:00 AM EDT Never Smoker completed Never S moker eCW1 ([facility]) Smoking 12/07/2019 12:00:00 AM EST Never Smoker completed Never S moker eCW1 ([facility]) Smoking 12/07/2019 12:00:00 AM EST Never Smoker completed Never S moker eCW1 ([facility]) Smoking 12/07/2019 12:00:00 AM EST Never Smoker completed Never S moker eCW1 ([facility]) Smoking 12/07/2019 12:00:00 AM EST Never Smoker completed Never S moker eCW1 ([facility]) Smoking 12/07/2019 12:00:00 AM EST Never Smoker completed Never S moker eCW1 ([facility]) Smoking 12/07/2019 12:00:00 AM EST Never Smoker completed Never S moker eCW1 ([facility]) Vital Signs ID Date Data Source UNK Name Value Range Interpretation Code Description Data Source(s) Diastolic blood pressure 70 mm[Hg] 70 mm[Hg] eCW1 ([facility]) Systolic blood pressure 152 mm[Hg] 152 mm[Hg] e CW1 ([facility]) Body temperature 98.0 [degF] 98.0 [degF] eCW1 ( [facility]) Respiratory rate 18 /min 18 /min eCW1 ([facility]) Heart rate 68 /min 68 /min eCW1 ([facility]) Body mass index (BMI) [Ratio] 35.29 kg/m2 35.29 kg/m2 W1 ([facility]) Body height 64 [in_i] 64 [in_i] eCW1 ([facility]) Body weight 205.6 [lb_av] 205.6 [lb_av] eCW1 ([facility]) Diastolic blood pressure 66 mm[Hg] 66 mm[Hg] eCW1 ([facility]) Systolic blood pressure 140 mm[Hg] 140 mm[Hg] e CW1 ([facility]) Body temperature 97.8 [degF] 97.8 [degF] eCW1 ( [facility]) Respiratory rate 18 /min 18 /min eCW1 ([facility]) Heart rate 71 /min 71 /min eCW1 ([facility]) Body mass index (BMI) [Ratio] 35.29 kg/m2 35.29 kg/m2 eCW1 ([facility]) Body height 64 [in_i] 64 [in_i] eCW1 ([facility]) Body weight 93.3 kg 93.3 kg eCW1 ([facility]) Body weight 205.6 [lb_av] 205.6 [lb_av] eCW1 ([facility]) [place] body weight 120 [lb_av] 120 [lb_av] MEDEN T ([facility], ) Body mass index (BMI) [Ratio] 32.6 kg/m2 32.6 k g/m2 MEDENT ([facility] ) Body weight 190.00 [lb_av] 190.00 [lb_av] MEDEN T ([facility], ) Body height 64 [in_i] 64 [in_i] MEDENT ([facility], ) 5'4" Respiratory rate 12 /min 12 /min MEDENT ( [facility], ) [place] body weight 120 [lb_av] 120 [lb_av] MEDEN T ([facility], ) Body mass index (BMI) [Ratio] 32.6 kg/m2 32.6 k g/m2 MEDENT ([facility] ) Body weight 190.00 [lb_av] 190.00 [lb_av] MEDEN T ([facility], ) Body height 64 [in_i] 64 [in_i] MEDENT ([facility], ) 5'4" Respiratory rate 12 /min 12 /min MEDENT ( [facility] ) Body surface area 1.94 m2 1.94 m2 MEDENT ([facility]) Body mass index (BMI) [Ratio] 33.5 kg/m2 33.5 k g/m2 MEDENT ([facility]) Body height 64 [in_i] 64 [in_i] MEDENT ([facility]) 5'4" Body weight 88.452 kg 88.452 kg MEDENT ([facility]) Body weight 195.00 [lb_av] 195.00 [lb_av] MEDEN T ([facility]) Body mass index (BMI) [Ratio] 32.6 kg/m2 32.6 k g/m2 MEDENT ([facility] ) Body weight 190.00 [lb_av] 190.00 [lb_av] MEDEN T ([facility], ) Body height 64 [in_i] 64 [in_i] MEDENT ([facility], ) 5'4" Respiratory rate 12 /min 12 /min MED[facility] ( [facility], ) Diastolic blood pressure 64 mm[Hg] 64 mm[Hg] eCW1 [facility]) Systolic blood pressure 126 mm[Hg] 126 mm[Hg] e CW1 ([facility]) Body temperature 97.9 [degF] 97.9 [degF] eCW1 ( [facility]) Respiratory rate 18 /min 18 /min eCW1 ([facility]) Heart rate 66 /min 66 /min eCW1 ([facility]) Body mass index (BMI) [Ratio] 34.22 kg/m2 34.22 kg/m2 eCW1 ([facility]) Body height 64 [in_us] 64 [in_us] eCW1 ([facility]) Body weight Measured 199.4 [lb_av] 199.4 [lb_av ] eCW1 ([facility]) Diastolic blood pressure 58 mm[Hg] 58 mm[Hg] eCW1 ([facility]) Systolic blood pressure 132 mm[Hg] 132 mm[Hg] e CW1 ([facility]) Body temperature 98.1 [degF] 98.1 [degF] eCW1 ( [facility]) Respiratory rate 18 /min 18 /min eCW1 ([facility]) Heart rate 63 /min 63 /min eCW1 ([facility]) Body mass index (BMI) [Ratio] 33.61 kg/m2 33.61 kg/m2 eCW1 ([facility]) Body height 64 [in_us] 64 [in_us] eCW1 ([facility]) Body weight Measured 195.8 [lb_av] 195.8 [lb_av ] eCW1 ([facility]) Diastolic blood pressure 60 mm[Hg] 60 mm[Hg] eCW1 ([facility]) Systolic blood pressure 128 mm[Hg] 128 mm[Hg] e CW1 ([facility]) Body temperature 97 [degF] 97 [degF] eCW1 ([facility]) Respiratory rate 18 /min 18 /min eCW1 ([facility]) Heart rate 60 /min 60 /min eCW1 ([facility]) Body mass index (BMI) [Ratio] 32.61 kg/m2 32.61 kg/m2 eCW1 ([facility]) Body height 64 [in_us] 64 [in_us] eCW1 ([facility]) Body weight Measured 190 [lb_av] 190 [lb_av] eC W1 ([facility]) Diastolic blood pressure 62 mm[Hg] 62 mm[Hg] eCW1 ([facility]) Systolic blood pressure 108 mm[Hg] 108 mm[Hg] e CW1 ([facility]) Body temperature 97.4 [degF] 97.4 [degF] eCW1 ( [facility]) Respiratory rate 18 /min 18 /min eCW1 ([facility]) Heart rate 88 /min 88 /min eCW1 ([facility]) Body mass index (BMI) [Ratio] 32.44 kg/m2 32.44 kg/m2 eCW1 ([facility]) Body height 64 [in_us] 64 [in_us] eCW1 ([facility]) Body weight Measured 189 [lb_av] 189 [lb_av] eC W1 ([facility]) Patient Treatment Plan of Care Planned Activity Planned Date Details Description Data Source (s) Nystatin 100 UNT/MG Topical Powder 10/01/2020 12:00:00 AM EST eCW1 ([facility]) Nystatin 100 UNT/MG Topical Powder 10/01/2020 12:00:00 AM EST eCW1 ([facility]) Ergocalciferol 16186 UNT Oral Capsule 09/24/2020 12:00:00 AM EST eCW1 ([facility]) Ergocalciferol 54953 UNT Oral Capsule 09/24/2020 12:00:00 AM EST eCW1 ([facility]) Ergocalciferol 62046 UNT Oral Capsule 09/24/2020 12:00:00 AM EST eCW1 ([facility]) Ergocalciferol 23613 UNT Oral Capsule 09/24/2020 12:00:00 AM EST eCW1 ([facility]) ferrous sulfate 325 MG Oral Tablet 01/30/2020 12:00:00 AM EDT eCW1 ([facility]) ferrous sulfate 325 MG Oral Tablet 01/30/2020 12:00:00 AM EDT eCW1 ([facility]) ferrous sulfate 325 MG Oral Tablet 01/30/2020 12:00:00 AM EDT eCW1 ([facility]) ferrous sulfate 325 MG Oral Tablet 01/30/2020 12:00:00 AM EDT eCW1 ([facility]) Clonidine Hydrochloride 0.1 MG Oral Tablet 12/07/2019 12:00:[address] eCW1 ([facility]) Clonidine Hydrochloride 0.1 MG Oral Tablet 12/07/2019 12:00:[address] eCW1 ([facility]) Clonidine Hydrochloride 0.1 MG Oral Tablet 12/07/2019 12:00:[address] eCW1 ([facility]) Clonidine Hydrochloride 0.1 MG Oral Tablet 12/07/2019 12:00:[address] eCW1 ([facility]) Clonidine Hydrochloride 0.1 MG Oral Tablet 12/07/2019 12:00:[address] eCW1 ([facility]) Clonidine Hydrochloride 0.1 MG Oral Tablet 12/07/2019 12:00:[address] eCW1 ([facility]) Clonidine Hydrochloride 0.1 MG Oral Tablet 12/07/2019 12:00:[address] eCW1 ([facility]) Potassium Chloride 10 MEQ Extended Release Oral Capsul e 11/28/2019 12:00:00 AM EST eCW1 ([facility]) atorvastatin 20 MG Oral Tablet 11/26/2019 12:00:00 AM EST eCW1 ([facility]) atorvastatin 20 MG Oral Tablet 11/26/2019 12:00:00 AM EST eCW1 ([facility]) Amlodipine 10 MG Oral Tablet 11/26/2019 12:00:00 AM EST eCW1 ([facility]) atorvastatin 20 MG Oral Tablet 11/26/2019 12:00:00 AM EST eCW1 ([facility]) Amlodipine 10 MG Oral Tablet 11/26/2019 12:00:00 AM EST eCW1 ([facility]) atorvastatin 20 MG Oral Tablet 11/26/2019 12:00:00 AM EST eCW1 ([facility]) Amlodipine 10 MG Oral Tablet 11/26/2019 12:00:00 AM EST eCW1 ([facility]) Amlodipine 10 MG Oral Tablet 11/26/2019 12:00:00 AM EST eCW1 ([facility]) atorvastatin 20 MG Oral Tablet 11/26/2019 12:00:00 AM EST eCW1 ([facility]) Amlodipine 10 MG Oral Tablet 11/26/2019 12:00:00 AM EST eCW1 ([facility]) atorvastatin 20 MG Oral Tablet 11/26/2019 12:00:00 AM EST eCW1 ([facility]) Amlodipine 10 MG Oral Tablet 11/26/2019 12:00:00 AM EST eCW1 ([facility]) atorvastatin 20 MG Oral Tablet 11/26/2019 12:00:00 AM EST eCW1 ([facility]) Amlodipine 10 MG Oral Tablet 11/26/2019 12:00:00 AM EST eCW1 ([facility]) Hydrocortisone 25 MG/ML Topical Cream [Anusol HC] 11/13/2019 12: 00:00 AM EST eCW1 ([facility]) Anusol 1 % 10/23/2019 12:00:00 AM EST e CW1 ([facility]) Anusol 1 % 10/23/2019 12:00:00 AM EST e CW1 ([facility])
[2020-10-17 16:43] VITALS: BP 137/96
== END 2020-10-17 16:46 | disposition home or self-care (01) ==
LOC: EDBD 15:32 → M ED 15:32
DX: L25.9 Unspecified contact dermatitis, unspecified cause (principal); I10 Essential (primary) hypertension; E07.9 Disorder of thyroid, unspecified; K21.9 Gastro-esophageal reflux disease without esophagitis; Z79.899 Other long term (current) drug therapy; Z79.890 Hormone replacement therapy; Z79.82 Long term (current) use of aspirin; Z79.01 Long term (current) use of anticoagulants; Z88.0 Allergy status to penicillin; Z88.1 Allergy status to other antibiotic agents; Z88.2 Allergy status to sulfonamides; Z88.5 Allergy status to narcotic agent; Z88.8 Allergy status to other drugs, medicaments and biological substances

== ENCOUNTER → 2020-11-27 | Outpatient (CLI) | payer MEDICARE, MEDICAID ==
--- NOTE | 2020-11-27 12:33 | REPPI ---
INDICATION: CONSTIPATION. COMPARISON: CT 08/03/2020. TECHNIQUE: AP supine views FINDINGS: Metallic density overlies the right cardiophrenic angle in the upper image. Is a cylindrical object overlying the right upper quadrant lateral to the liver and gallbladder fossa. Both of these are likely extrinsic to body. Advanced degenerative changes in the spine and hips. There is moderate severe retained stool in the right colon with the scattered stool in transverse colon to the splenic flexure no dilatation of the transverse, left colon or rectosigmoid there are no definite calcifications over the renal fossae a. there are vascular calcifications in the iliac vessels. IMPRESSION: 1. Moderate retained stool in the right colon with scattered stool in the transverse and left colon without abnormal distention. No definite evidence for obstruction, mass, abnormal soft tissue calcifications or other acute finding. 2. Degenerative changes spine and hips. <Electronically signed by Yifan Merrill > 11/27/20 [id number]
== END ==
LOC: M PLAIMG 12:04
PROVIDERS: ATTEND Physician Assistant
DX: K59.00 Constipation, unspecified (principal)

== ENCOUNTER 2020-12-05 09:29 | Emergency (ER) | payer MEDICARE, MEDICAID ==
--- NOTE | 2020-12-05 10:09 | REP ---
INDICATION: fall on eliquis COMPARISON: 06/20/2020 TECHNIQUE: Axial noncontrast images from the skull base to the thoracic inlet with coronal reformations. This CT examination was performed using the following dose reduction techniques: Automated exposure control, adjustment of mA and/or kv according to the patient's size, and use of iterative reconstruction technique. FINDINGS: Age-related atrophy and microvascular ischemic changes are appreciated. The ventricles and sulci are symmetric. Wills-white differentiation is maintained. There is no evidence for acute intracranial hemorrhage, mass/mass effect, pathology or infarction. No extra-axial fluid collection. Calvarium is intact. Paranasal sinuses and mastoid air cells are clear. IMPRESSION: Age related atrophy and microvascular ischemic changes. No acute intracranial hemorrhage, infarction, or mass/mass effect. <Electronically signed by Miky Patterson > 12/05/20 [id number]
--- NOTE | 2020-12-05 10:12 | REP ---
INDICATION: fall on eliquis COMPARISON: 11/19/2018 TECHNIQUE: Axial noncontrast images from the skull base to the thoracic inlet with coronal and sagittal re-formations This CT examination was performed using the following dose reduction techniques: Automated exposure control, adjustment of mA and/or kv according to the patient's size, and use of iterative reconstruction technique. FINDINGS: Advanced osteopenia and multilevel degenerative disc osteophyte complexes along with exaggerated lordosis again noted and similar to 2019. No acute fracture/compression injury or subluxation. Posterior elements and spinous processes are intact. Spinal canal is stable. Paravertebral soft tissues without evidence for acute injury. Lung apices are clear. IMPRESSION: Advanced chronic relatively stable multilevel spondylosis. No evidence for acute fracture/compression injury or subluxation. <Electronically signed by Miky Patterson > 12/05/20 [id number]
--- NOTE | 2020-12-05 11:24 | REP ---
INDICATION: trauma COMPARISON: None. TECHNIQUE: Frontal view of the pelvis with neutral and frog lateral views of the left hip. FINDINGS: Evaluation is limited by generalized degenerative changes and positioning. A subtle impaction fracture at the left femoral neck cannot definitively be excluded. No further acute fracture or dislocation is identified. IMPRESSION: Limited examination. Cannot exclude subtle impaction fracture at the left femoral neck. Consider CT of the pelvis/hip for further investigation if necessary. <Electronically signed by Miky Patterson > 12/05/20 [id number]
--- NOTE | 2020-12-05 11:24 | REP ---
INDICATION: trauma COMPARISON: None. TECHNIQUE: AP, lateral, and swimmers views. FINDINGS: Alignment and kyphosis is maintained. Generalized age-related changes are appreciated including endplate sclerosis, scattered disc space narrowing and osteophytosis. No acute fracture/compression injury or subluxation is appreciated. IMPRESSION: No acute fracture or dislocation. <Electronically signed by Miky Patterson > 12/05/20 [id number]
--- NOTE | 2020-12-05 11:25 | REP ---
INDICATION: trauma COMPARISON: None. TECHNIQUE: AP, lateral, bilateral oblique, and coned-down views of the lumbar spine. FINDINGS: Advanced multilevel degenerative changes include endplate sclerosis/irregularity, disc space narrowing, osteophytosis, and facet hypertrophy. No obvious acute fracture/compression injury or acute subluxation appreciated. IMPRESSION: Advanced multilevel degenerative spondylosis. No acute fracture/compression injury or subluxation appreciated. <Electronically signed by Miky Patterson > 12/05/20 [id number]
--- NOTE | 2020-12-05 11:57 | REP ---
INDICATION: ?fx on xray. COMPARISON: None. TECHNIQUE: Axial noncontrast images through the left hemipelvis with coronal and sagittal reformations. FINDINGS: Age-related osteopenia and advanced arthritic changes are appreciated without evidence for acute fracture or dislocation. Surrounding musculoskeletal structures demonstrate age-related changes without hematoma or significant traumatic infiltration. Vascular calcifications are identified. Visualized portions of the pelvis without acute process. IMPRESSION: Age-related osteopenia and advanced arthritic changes. No evidence for acute fracture or dislocation. <Electronically signed by Miky Patterson > 12/05/20 [id number]
[2020-12-05] MEDS ORDERED: ACETAMINOPHEN 500 MG TAB PO ONE (12:10)
--- NOTE | 2020-12-05 12:28 | REP ---
INDICATION: trauma COMPARISON: None. TECHNIQUE: AP, lateral, bilateral oblique views of the right knee FINDINGS: Prior replacement and age-related osteopenia along with degenerative changes are appreciated. No evidence for acute fracture or dislocation. IMPRESSION: No acute fracture or dislocation. <Electronically signed by Miky Patterson > 12/05/20 [id number]
[2020-12-05 14:45] VITALS: BP 160/62
== END 2020-12-05 14:45 | disposition home or self-care (01) ==
LOC: EDBD 09:29 → M ED 09:29
DX: S70.02XA Contusion of left hip, initial encounter (principal); S80.01XA Contusion of right knee, initial encounter; W01.198A Fall on same level from slipping, tripping and stumbling with subsequent striking against other object, initial encounter; Y92.238 Other place in hospital as the place of occurrence of the external cause; Y93.9 Activity, unspecified; Y99.9 Unspecified external cause status; M85.852 Other specified disorders of bone density and structure, left thigh; M16.12 Unilateral primary osteoarthritis, left hip; M06.9 Rheumatoid arthritis, unspecified; R93.7 Abnormal findings on diagnostic imaging of other parts of musculoskeletal system; M47.817 Spondylosis without myelopathy or radiculopathy, lumbosacral region; M47.812 Spondylosis without myelopathy or radiculopathy, cervical region; G31.1 Senile degeneration of brain, not elsewhere classified; I67.82 Cerebral ischemia; I48.91 Unspecified atrial fibrillation; J45.909 Unspecified asthma, uncomplicated; G47.30 Sleep apnea, unspecified; Z86.711 Personal history of pulmonary embolism; Z86.718 Personal history of other venous thrombosis and embolism; Z79.82 Long term (current) use of aspirin; Z79.01 Long term (current) use of anticoagulants; Z79.899 Other long term (current) drug therapy; Z88.0 Allergy status to penicillin; Z88.2 Allergy status to sulfonamides; Z88.5 Allergy status to narcotic agent

== ENCOUNTER → 2020-12-30 | Outpatient (CLI) | payer MEDICARE, MEDICAID ==
--- NOTE | 2020-12-30 18:37 | DEXAMM ---
INDICATION: M81.0 OSTEOPOROSIS. COMPARISON: None. TECHNIQUE: Bone density was measured using dual-energy x-ray absorptionmetry (DEXA). FINDINGS: AP SPINE L1-L4 BMD 1.424 g/cm2 Young Adult T-Score 1.9 Age Matched Z-Score 3.8. LT FEMUR, TOTAL BMD 0.912 g/cm2 Young Adult T-Score -0.8 Age Matched Z-Score 1.8. LT NECK BMD 0.917 g/cm2 Young Adult T-Score -0.9 Age Matched Z-Score 1.7. RT FEMUR, TOTAL BMD 0.953 g/cm2 Young Adult T-Score -0.4 Age Matched Z-Score 2.1. RT NECK BMD 1.016 g/cm2 Young Adult T-Score -0.2 Age Matched Z-Score 2.4. IMPRESSION: There is normal bone density of the spine. There is normal bone density of the left hip. There is normal bone density of the right hip. FOLLOW-UP: Recommendation for the next bone density exam: 5 years. <Electronically signed by Edson Saunders > 12/30/20 [id number]
== END ==
LOC: M WHC 13:26
PROVIDERS: ATTEND Internal Medicine
DX: M81.0 Age-related osteoporosis without current pathological fracture (principal)

== ENCOUNTER → 2021-01-13 | Outpatient (REF) | payer MEDICARE, MEDICAID ==
[~2021-01-13] MED LIST changes: +PRED20TA PO
[2021-01-15 16:08] LABS: CREATININE URINE 135.6 mg/dL (Not Estab.)
== END ==
LOC: M SFHCRHEU 13:30
PROVIDERS: ATTEND Internal Medicine
DX: M81.0 Age-related osteoporosis without current pathological fracture (principal)
CPT/HCPCS: 82523; G0463